=== PATIENT | male | born 1945 | race American Indian/Alaskan Native ===

== ENCOUNTER 2016-12-24 16:58 | Inpatient (IN) | payer MEDICARE, SELFPAY ==
[2016-12-24 16:59] VITALS: BMI 27.7
--- NOTE | 2016-12-24 17:35 | C.PDOC ---
Chief Complaint (Nursing): Lower Extremity Problem/Injury Past Medical History Vital Signs: Last Vital Signs Temp 98.4 F 12/24/16 17:08 Pulse 76 12/24/16 17:08 Resp 18 12/24/16 17:08 BP 155/96 H 12/24/16 17:08 Pulse Ox 98 12/24/16 17:08 - Medical History PMH: HTN - [facility] Procedures EXC LES SOFT TISSUE NEC (08/07/13) EXCIS DEBRIDE OF WOUND, INFECT, OR BURN (09/05/13) FREE SKIN GRAFT NEC (08/07/13) NONEXCIS DEBRID OF WOUND, INFECT, OR BURN (08/07/13) - Social History Hx Alcohol Use: Yes Hx Substance Use: No ED Course And Treatment O2 Sat by Pulse Oximetry: 98
--- NOTE | 2016-12-24 17:39 | C.PDOC ---
History Of Present Illness REFERRED DR LIMA FOR ADMISSION. WORSENING R FOOT ULCER X 3- MONTHS. ON UNK ABX X 1 MO BUT WO IMPROVEMENT. PS SIZE IS GETTING BIGGER. NO FEVER, DC. EXAM NAD NONTOXIC SKIN +DIABETIC ULCER R LATERAL FOOT BELOW LAT MALL. LOCAL ERYTHEMA. NO DC. REMAINDER NEG Time Seen by Provider: 12/24/16 17:23 Chief Complaint (Nursing): Lower Extremity Problem/Injury History Per: Patient History/Exam Limitations: no limitations Onset/Duration Of Symptoms: Persistent Current Symptoms Are (Timing): Worse Location Of Injury: Right: Foot Quality Of Symptoms: Painful Recent travel outside of the [place]: No Past Medical History Reviewed: Historical Data, Nursing Documentation, Vital Signs Vital Signs: Last Vital Signs Temp 98.4 F 12/24/16 17:08 Pulse 76 12/24/16 17:08 Resp 18 12/24/16 17:08 BP 155/96 H 12/24/16 17:08 Pulse Ox 98 12/24/16 17:57 - Medical History PMH: HTN - [facility] Procedures EXC LES SOFT TISSUE NEC (08/07/13) EXCIS DEBRIDE OF WOUND, INFECT, OR BURN (09/05/13) FREE SKIN GRAFT NEC (08/07/13) NONEXCIS DEBRID OF WOUND, INFECT, OR BURN (08/07/13) Family History: States: Unknown Family Hx - Social History Hx Alcohol Use: Yes Hx Substance Use: No Review Of Systems Except As Marked, All Systems Reviewed And Found Negative. Constitutional: Negative for: Fever, Chills Skin: Positive for: Other (R FOOT ULCER ). Negative for: Rash Neurological: Negative for: Weakness, Numbness Physical Exam - Physical Exam Appears: Non-toxic, No Acute Distress Skin: Warm, Dry, Other (+DIABETIC ULCER R LATERAL FOOT BELOW LAT MALL. LOCAL ERYTHEMA. NO DC.) Head: Atraumatic, Normacephalic Chest: Symmetrical Cardiovascular: Rhythm Regular, No Murmur Respiratory: Normal Breath Sounds, No Rales, No Rhonchi, No Wheezing Gastrointestinal/Abdominal: Soft, No Tenderness, No Guarding, No Rebound Extremity: Normal ROM, Other (SEE SKIN EXAM) Neurological/Psych: Oriented x3, Normal Speech, Normal Cognition ED Course And Treatment - Laboratory Results Result Diagrams: 12/24/16 17:50 12/24/16 17:50 ECG: Interpreted By Me ECG Rhythm: Sinus Rhythm ECG Interpretation: Normal Rate From EC O2 Sat by Pulse Oximetry: 98 (RA) Pulse Ox Interpretation: Normal - Radiology CXR: Interpreted by Me CXR Interpretation: Yes: No Acute Disease Progress - Re-Evaluation Re-evaluation Note: 12/24/16 17:[address] BEATRIZ KINGSLEY NOTIFIED 12/24/16 17:40 EKG, CXR, BLOODWORK, X-RAYS. 12/24/16 17:55 UNABLE TO ADMIT TO PMD DUE TO BLUE LIST STATUS. ADMISSION REFUSED BY HOSPITALIST DUE TO INSURANCE STATUS. PT ADMITTED TO [facility] [facility] [employer] DR Arcadio ALMEIDA. - Data Reviewed Data Reviewed: Lab, Diagnostic imaging, EKG, Old records - Continuity of Care Discussed patient case with:: Patient, Family-HIPPA compliant Discussed pt. case with financial analysis consultant/specialty: Podiatry Disposition Counseled Patient/Family Regarding: Studies Performed, Diagnosis, Need For Followup - Disposition Disposition: HOSPITALIZED Disposition Time: 17:39 Condition: STABLE - POA Present On Arrival: Poor Glycemic Control - Clinical Impression Clinical Impression: Diabetic ulcer of ankle, Failure of outpatient treatment - Scribe Statement The provider has reviewed the documentation as recorded by the Scribe FORD MORALES All medical record entries made by the Scribe were at my direction and personally dictated by me. I have reviewed the chart and agree that the record accurately reflects my personal performance of the history, physical exam, medical decision making, and the department course for this patient. I have also personally directed, reviewed, and agree with the discharge instructions and disposition. Decision To Admit - Pt Status Changed To: Hospital Disposition Of: Inpatient - Admit Certification Admit to Inpatient:: After my assessment, the patient will require hospitalization for at least two midnights. This is because of the severity of symptoms shown, intensity of services needed, and/or the medical risk in this patient being treated as an outpatient. - InPatient: Physician Admission Certification: I certify that this patient requires 2 or more midnights of care for the following reason:: SEE NOTE - . Bed Request Type: Regular Patient Diagnosis: Diabetic ulcer of ankle, Failure of outpatient treatment
[2016-12-24] MEDS ORDERED: Clindamycin 300 MG in Sodium Chloride 0.9% 50 ML IVPB STA (17:41)
[2016-12-24 17:53] LABS: BASO % 0.6 % (0.0-2.0); EOS # 0.2 K/uL (0.0-0.7); HEMATOCRIT 46.7 % (35.0-51.0); LYMPH # 1.9 K/uL (1.0-4.3); LYMPH % 23.2 % (20.0-40.0); MEAN CELL VOLUME 83.6 fL (80.0-94.0); MEAN CORPUSCULAR HEMOGLOBIN 26.9 pg (27.0-31.0); MEAN CORPUSCULAR HGB CONC 32.1 g/dL (33.0-37.0); MEAN PLATELET VOLUME 8.9 fL (7.2-11.7); MONO # 1.1 K/uL (0.0-0.8); MONO % 13.2 % (0.0-10.0); RED CELL DISTRIBUTION WIDTH 14.2 % (11.5-14.5); WHITE BLOOD COUNT 8.2 K/uL (4.8-10.8)
[2016-12-24 18:00] LABS: POTASSIUM 3.6 mmol/L (3.6-5.2)
[2016-12-24 18:04] LABS: CALCIUM 9.4 mg/dl (8.6-10.4)
--- NOTE | 2016-12-24 18:10 | RAD ---
HISTORY: MED CLEAR COMPARISON: No prior. TECHNIQUE: Chest PA and lateral FINDINGS: LUNGS: The lungs are well inflated and clear. There is left basilar scarring. PLEURA: No significant pleural effusion identified. No pneumothorax apparent. CARDIOVASCULAR: Normal. OSSEOUS STRUCTURES: Within normal limits for the patient's age. VISUALIZED UPPER ABDOMEN: Normal. OTHER FINDINGS: None. IMPRESSION: No acute findings.
--- NOTE | 2016-12-24 18:25 | CP.PCM.CON ---
History of Present Illness - History of Present Illness History of Present Illness: 71 y/o male with PMHx of HTN presents to the ED after being sent here from Dr. Turner's office this morning. Patient states he has had the wound on his right ankle for several weeks but that he has recently started to feel more pain in the area, specifically when he first tries to put weight down on it after sitting or sleeping. Patient admits to a history of a similar ulceration on the medial left ankle, which was previously infected and treated surgically with a washout and skin graft. Patient denies F/C/N/V/SOB. Patient has no other pedal complaints at this time. Review of Systems - Review of Systems All systems: reviewed and no additional remarkable complaints except (per HPI) Past Patient History - Past Medical History & Family History Past Medical History?: No - Past Social History Smoking Status: Never Smoked - CARDIAC Hx Hypertension: Yes - INTEGUMENTARY Hx Dermatological Problems: Yes Other/Comment: wound left heel for debridement - MUSCULOSKELETAL/RHEUMATOLOGICAL Hx Falls: No - PSYCHIATRIC Hx Substance Use: No - SURGICAL HISTORY Hx Surgeries: Yes Other/Comment: removal mole from left forearm 20 years ago - ANESTHESIA Hx Anesthesia: Yes Hx Anesthesia Reactions: No Hx Malignant Hyperthermia: No Meds Allergies/Adverse Reactions: Allergies Allergy/AdvReac Type Severity Reaction Status Date / Time No Known Allergies Allergy Verified 08/07/13 08:53 Physical Exam - Constitutional Appears: Well, Non-toxic, No Acute Distress - Extremities Exam Additional comments: Vasc: DP/PT pulses 2/4 B/L, CFT < 3sec x10 digits, temperature gradient WNL, mild perimalleolar edema noted at lateral right ankle in wound periphery Derm: 3.8cm x 2cm x 0.2cm dry ulceration noted to posterolateral aspect of right ankle with loose scabbing wound borders. Wound base contains a central eschar with fibrotic tissue peripherally. No tunneling, drainage, no malodor, no fluctuance, no probe to bone, no clinical signs of infection. Neuro: Protective sensation grossly intact B/L Ortho: No tenderness upon palpation of ulceration or ulcer periphery - Neurological Exam Neurological exam: Alert, Oriented x3 - Psychiatric Exam Psychiatric exam: Normal Affect, Normal Mood Results - Vital Signs Recent Vital Signs: Last Vital Signs Temp 98.4 F 12/24/16 17:08 Pulse 76 12/24/16 17:08 Resp 18 12/24/16 17:08 BP 155/96 H 12/24/16 17:08 Pulse Ox 98 12/24/16 17:57 - Labs Result Diagrams: 12/24/16 17:50 12/24/16 17:50 Assessment & Plan - Assessment and Plan (Free Text) Assessment: 71 y/o male seen in ED by podiatry for right foot posterolateral ankle ulceration Plan: Pt seen and evaluated in ED at bedside Discussed plan in detail with Dr. Turner Labs and vitals reviewed- afebrile, WBC 8.2 X-rays reviewed- no evidence of osteomyelitis, no acute fracture or dislocation Wound cultures taken by nursing, results pending Patient to be admitted on IV Clindamycin as per Dr. Turner Rx Santyl ointment to be applied with dressing changes Dressed right foot with bacitracin and DSD ID consult placed for Dr. Diamond Podiatry will continue to follow while in house Thank you for this consult - Date & Time Date: 12/24/16 Time: 18:35
[2016-12-24] MEDS ORDERED: Bacitracin 500 Units/gm Oint Foilpak UD TOP ONE (18:34)
--- NOTE | 2016-12-24 18:43 | RAD ---
PROCEDURE: Right Foot Radiographs. HISTORY: DIABETIC ULCER COMPARISON: None. FINDINGS: BONES: Bone alignment and mineralization are normal. There is no acute displaced fracture or bone destruction. There is a prominent dorsal calcaneal enthesophyte. JOINTS: Normal. SOFT TISSUES: Normal. OTHER FINDINGS: None. IMPRESSION: No acute fracture or dislocation.
--- NOTE | 2016-12-24 18:44 | RAD ---
PROCEDURE: Right Ankle Radiographs. HISTORY: DIABETIC ULCER COMPARISON: None FINDINGS: BONES: Bone alignment and mineralization are normal. There is no acute fracture or bone destruction. There is a prominent dorsal calcaneal enthesophyte. JOINTS: Normal. No osteoarthritis. Ankle mortise maintained. Talar dome intact SOFT TISSUES: There is mild medial periarticular soft tissue swelling. OTHER FINDINGS: None. IMPRESSION: No acute fracture or bone destruction. Mild medial periarticular soft tissue swelling.
[2016-12-24] MEDS ORDERED: Bacitracin 500 Units/gm Oint Foilpak UD ONE (18:45)
[2016-12-24] MEDS: Clindamycin 600mg/50ml D5W 600 MG/50 ML VIAL IVPB SCH (23:50)
[2016-12-25] MEDS: Piperacillin/Tazobact 3.375 GM in Sodium Chloride 100 ML IVPB SCH ×3 (03:06→19:29)
[2016-12-25] MEDS: Clindamycin 600mg/50ml D5W 600 MG/50 ML VIAL IVPB SCH ×2 (08:01→16:22)
[2016-12-25] MEDS ORDERED: Enoxaparin 40 mg Syringe SC SCH (10:00)
[2016-12-25] MEDS: Pantoprazole 40 mg EC Tab PO SCH (10:12)
[2016-12-25] MEDS: Enoxaparin 40 mg Syringe SC SCH (10:12)
[2016-12-25] MEDS: Bisoprolol-HCTZ 10-6.25 mg Tab PO SCH (10:12)
[2016-12-25] MEDS: Collagenase 250 Units/gm Ointment(30 gm) TOP SCH (12:14)
--- NOTE | 2016-12-25 12:25 | CP.PCM.HP ---
History of Present Illness - History of Present Illness History of Present Illness: ulcer infected heele Present on Admission - Present on Admission Any Indicators Present on Admission: No Review of Systems - Review of Systems Systems not reviewed;Unavailable: Acuity of Condition - Constitutional Constitutional: Fatigue - EENT Eyes: As Per HPI - Cardiovascular Cardiovascular: As Per HPI, Leg Ulcers - Respiratory Respiratory: Dyspnea on Exertion - Gastrointestinal Gastrointestinal: As Per HPI - Genitourinary Genitourinary: As Per HPI - Reproductive: Male Reproductive:Male: As Per HPI - Musculoskeletal Musculoskeletal: As Per HPI - Neurological Neurological: As Per HPI - Psychiatric Psychiatric: As Per HPI - Endocrine Endocrine: As Per HPI - Hematologic/Lymphatic Hematologic: As Per HPI Past Patient History - Past Medical History & Family History Past Medical History?: No - Past Social History Smoking Status: Never Smoked - CARDIAC Hx Hypertension: Yes - INTEGUMENTARY Hx Dermatological Problems: Yes Other/Comment: wound left heel for debridement - MUSCULOSKELETAL/RHEUMATOLOGICAL Hx Falls: No - PSYCHIATRIC Hx Substance Use: No - SURGICAL HISTORY Hx Surgeries: Yes Other/Comment: removal mole from left forearm 20 years ago - ANESTHESIA Hx Anesthesia: Yes Hx Anesthesia Reactions: No Hx Malignant Hyperthermia: No Meds Allergies/Adverse Reactions: Allergies Allergy/AdvReac Type Severity Reaction Status Date / Time No Known Allergies Allergy Verified 08/07/13 08:53 Physical Exam - Constitutional Appears: Non-toxic, In Acute Distress - Head Exam Head Exam: ATRAUMATIC - Eye Exam Eye Exam: Normal appearance Pupil Exam: NORMAL ACCOMODATION - ENT Exam ENT Exam: Mucous Membranes Moist - Neck Exam Neck exam: Positive for: Normal Inspection - Respiratory Exam Respiratory Exam: Clear to Auscultation Bilateral - Cardiovascular Exam Cardiovascular Exam: REGULAR RHYTHM - GI/Abdominal Exam GI & Abdominal Exam: Normal Bowel Sounds - Rectal Exam Rectal Exam: NORMAL INSPECTION - Exam Exam: NORMAL INSPECTION - Extremities Exam Extremities exam: Positive for: normal inspection Additional comments: ulcer infected heel - Back Exam Back exam: NORMAL INSPECTION - Neurological Exam Neurological exam: Normal Gait Results - Vital Signs Recent Vital Signs: Last Vital Signs Temp 98.8 F 12/25/16 08:20 Pulse 70 12/25/16 08:20 Resp 20 12/25/16 08:20 BP 161/92 H 12/25/16 08:20 Pulse Ox 97 12/25/16 08:20 - Labs Result Diagrams: 12/24/16 17:50 12/24/16 17:50 Assessment & Plan - Assessment and Plan (Free Text) Assessment: infected heel ulcer htn Plan: dr ponce consult and as per order - Date & Time Date: 12/25/16 Time: 12:27
--- NOTE | 2016-12-25 13:11 | CP.PCM.PN ---
Subjective - Date & Time of Evaluation Date of Evaluation: 12/25/16 Time of Evaluation: 11:20 - Subjective Subjective: 71 y/o diabetic male patient seen at bedside this morning regarding f.u of right ankle ulceration. Pt seen resting comfortably in bed at time of visit. AAOx3, NAD. Does complain of some mild pain to the ankle today. Denies f/n/v/c/ sob/cp. Denies any other complaints at this time. Objective - Vital Signs/Intake and Output Vital Signs (last 24 hours): Temp Pulse Resp BP Pulse Ox 98.8 F 70 20 161/92 H 97 12/25/16 08:20 12/25/16 08:20 12/25/16 08:20 12/25/16 08:20 12/25/16 08:20 Intake and Output: 12/25/16 12/25/16 06:59 18:59 Intake Total 440 Output Total 400 Balance 40 - Medications Medications: Current Medications Amlodipine Besylate (Norvasc) 10 mg PO DAILY [facility] Last Admin: 12/25/16 10:12 Dose: 10 mg Bisoprolol Fumarate/HCTZ (Ziac 10-6.25 Mg) 1 tab PO DAILY [facility] Last Admin: 12/25/16 10:12 Dose: 1 tab Collagenase (Santyl) 0 gm TOP DAILY [facility] Last Admin: 12/25/16 12:14 Dose: 1 applic Enoxaparin Sodium (Lovenox) 40 mg SC DAILY [facility] Last Admin: 12/25/16 10:12 Dose: 40 mg Hydralazine HCl (Apresoline) 50 mg PO DAILY [facility] Last Admin: 12/25/16 10:12 Dose: 50 mg Clindamycin Phosphate (Cleocin) 600 mg in 50 mls @ 102 mls/hr IVPB Q8H [facility] Last Admin: 12/25/16 08:01 Dose: 102 mls/hr Piperacillin Sod/Tazobactam (Sod 3.375 gm/ Sodium Chloride) 100 mls @ 200 mls/ hr IVPB Q8H [facility] Last Admin: 12/25/16 10:36 Dose: 200 mls/hr Losartan Potassium (Cozaar) 100 mg PO DAILY [facility] Last Admin: 12/25/16 10:14 Dose: 100 mg Pantoprazole Sodium (Protonix Ec Tab) 40 mg PO DAILY [facility] Last Admin: 12/25/16 10:12 Dose: 40 mg - Constitutional Appears: Non-toxic, No Acute Distress - Extremities Exam Extremities Exam: absent: Calf Tenderness Additional comments: Right low ext exam: Dressing appears c/d/i to the right foot Vasc: DP/PT pulses 2/4 B/L, CFT < 3sec x10 digits, skin temp WNL, mild perimalleolar edema noted at lateral right ankle in wound periphery Derm: 3.8cm x 2cm x 0.2cm dry ulceration noted to posterolateral aspect of right ankle with loose scabbing wound borders. Wound base contains a central eschar with fibrotic tissue peripherally. No tunneling, drainage, no malodor, no fluctuance, no probe to bone, no clinical signs of infection. Neuro: Protective sensation grossly intact B/L Ortho: No tenderness upon palpation of ulceration or ulcer periphery - Neurological Exam Neurological Exam: Alert, Awake, Oriented x3 - Psychiatric Exam Psychiatric exam: Normal Affect, Normal Mood Assessment and Plan - Assessment and Plan (Free Text) Assessment: 71 y/o diabetic male w/ right posterolateral ankle ulceration 2/2 diabetic neuropathy Plan: Pt S&E at bedside Plan discussed with attending Dr. Turner in detail Chart, labs and vitals reviewed: afebrile, WBC 8.2 X-rays reviewed- no evidence of osteomyelitis, no acute fracture or dislocation Wound cx: (prelim) gram + cocci in clusters c/w IV abx, Dr. Diamond on consult, recommendations appreciated Right foot cleansed and dressed with santyl and DSD Podiatry will continue to follow while in house
--- NOTE | 2016-12-25 14:36 | CP.PCM.CON ---
History of Present Illness - History of Present Illness History of Present Illness: 71 years old male patient with past medical history of hypertension referred from Dr Turner's clinic to emergency department when found worsening ulcer over the right foot since last 3 months. Patient states that the wound is recently started to become more painful specifically when he puts weight down on it after sitting. History of similar ulcer over the left ankle which was treated surgically with a washout and skin graft. No fever, nausea, vomiting. No chest pain, shortness of breath, lightheadedness, palpitation. No pedal edema bilaterally. No history of recent trauma. Past Patient History - Past Medical History & Family History Past Medical History?: No - Past Social History Smoking Status: Never Smoked - CARDIAC Hx Hypertension: Yes - INTEGUMENTARY Hx Dermatological Problems: Yes Other/Comment: wound left heel for debridement - MUSCULOSKELETAL/RHEUMATOLOGICAL Hx Falls: No - PSYCHIATRIC Hx Substance Use: No - SURGICAL HISTORY Hx Surgeries: Yes Other/Comment: removal mole from left forearm 20 years ago - ANESTHESIA Hx Anesthesia: Yes Hx Anesthesia Reactions: No Hx Malignant Hyperthermia: No Meds Home Medications: Home Medication List Medication Instructions Recorded Confirmed Type Acetaminophen [Tylenol 325mg tab] 650 mg PO Q6 PRN tab 01/04/17 Rx Allergies/Adverse Reactions: Allergies Allergy/AdvReac Type Severity Reaction Status Date / Time No Known Allergies Allergy Verified 01/04/17 17:27 - Medications Medications: Current Medications Amlodipine Besylate (Norvasc) 10 mg PO DAILY [facility] Last Admin: 12/25/16 10:12 Dose: 10 mg Bisoprolol Fumarate/HCTZ (Ziac 10-6.25 Mg) 1 tab PO DAILY [facility] Last Admin: 12/25/16 10:12 Dose: 1 tab Collagenase (Santyl) 0 gm TOP DAILY [facility] Last Admin: 12/25/16 12:14 Dose: 1 applic Enoxaparin Sodium (Lovenox) 40 mg SC DAILY [facility] Last Admin: 12/25/16 10:12 Dose: 40 mg Hydralazine HCl (Apresoline) 50 mg PO DAILY [facility] Last Admin: 12/25/16 10:12 Dose: 50 mg Clindamycin Phosphate (Cleocin) 600 mg in 50 mls @ 102 mls/hr IVPB Q8H [facility] Last Admin: 12/25/16 08:01 Dose: 102 mls/hr Piperacillin Sod/Tazobactam (Sod 3.375 gm/ Sodium Chloride) 100 mls @ 200 mls/ hr IVPB Q8H [facility] Last Admin: 12/25/16 10:36 Dose: 200 mls/hr Losartan Potassium (Cozaar) 100 mg PO DAILY [facility] Last Admin: 12/25/16 10:14 Dose: 100 mg Pantoprazole Sodium (Protonix Ec Tab) 40 mg PO DAILY [facility] Last Admin: 12/25/16 10:12 Dose: 40 mg Physical Exam - Constitutional Appears: Well - Head Exam Head Exam: ATRAUMATIC, NORMAL INSPECTION, NORMOCEPHALIC - Eye Exam Eye Exam: EOMI, Normal appearance, PERRL Pupil Exam: NORMAL ACCOMODATION, PERRL - ENT Exam ENT Exam: Mucous Membranes Moist, Normal Exam - Neck Exam Neck exam: Positive for: Normal Inspection - Respiratory Exam Respiratory Exam: Decreased Breath Sounds - Cardiovascular Exam Cardiovascular Exam: REGULAR RHYTHM, +S1, +S2 - GI/Abdominal Exam GI & Abdominal Exam: Diminished Bowel Sounds, Soft - Rectal Exam Rectal Exam: Deferred Results - Vital Signs Recent Vital Signs: Last Vital Signs Temp 98.8 F 12/25/16 08:20 Pulse 70 12/25/16 08:20 Resp 20 12/25/16 08:20 BP 161/92 H 12/25/16 08:20 Pulse Ox 97 12/25/16 08:20 - Labs Result Diagrams: 12/31/16 07:16 12/31/16 07:16 Assessment & Plan (1) Diabetic ulcer of ankle Status: Acute (2) Failure of outpatient treatment Status: Acute (3) HTN (hypertension) Status: Acute (4) Non-healing ulcer of ankle Status: Chronic - Assessment and Plan (Free Text) Plan: Patient seen and evaluated Labs and meds noted Wound culture awaited IV antibiotics Wound care ID consult Podiatry Labs next a.m.
[2016-12-26] MEDS: Clindamycin 600mg/50ml D5W 600 MG/50 ML VIAL IVPB SCH ×2 (00:15→07:04)
[2016-12-26] MEDS: Piperacillin/Tazobact 3.375 GM in Sodium Chloride 100 ML IVPB SCH ×3 (03:15→18:37)
[2016-12-26] MEDS: Bisoprolol-HCTZ 10-6.25 mg Tab PO SCH (09:37)
[2016-12-26] MEDS: Enoxaparin 40 mg Syringe SC SCH (09:37)
[2016-12-26] MEDS: Pantoprazole 40 mg EC Tab PO SCH (09:41)
--- NOTE | 2016-12-26 11:30 | CP.PCM.PN ---
Subjective - Date & Time of Evaluation Date of Evaluation: 12/26/16 Time of Evaluation: 11:27 - Subjective Subjective: pt seen in bed still has infected painful ulcer heele bp slightly beter Objective - Vital Signs/Intake and Output Vital Signs (last 24 hours): Temp Pulse Resp BP Pulse Ox 99.2 F 75 20 158/95 H 97 12/26/16 08:44 12/26/16 08:44 12/26/16 08:44 12/26/16 08:44 12/26/16 08:44 Intake and Output: 12/26/16 12/26/16 06:59 18:59 Intake Total 1120 Output Total 350 Balance 770 - Medications Medications: Current Medications Amlodipine Besylate (Norvasc) 10 mg PO DAILY [facility] Last Admin: 12/26/16 09:40 Dose: 10 mg Bisoprolol Fumarate/HCTZ (Ziac 10-6.25 Mg) 1 tab PO DAILY [facility] Last Admin: 12/26/16 09:37 Dose: 1 tab Collagenase (Santyl) 0 gm TOP DAILY [facility] Last Admin: 12/25/16 12:14 Dose: 1 applic Enoxaparin Sodium (Lovenox) 40 mg SC DAILY [facility] Last Admin: 12/26/16 09:37 Dose: 40 mg Hydralazine HCl (Apresoline) 50 mg PO DAILY [facility] Last Admin: 12/26/16 09:40 Dose: 50 mg Clindamycin Phosphate (Cleocin) 600 mg in 50 mls @ 102 mls/hr IVPB Q8H [facility] Last Admin: 12/26/16 07:04 Dose: 102 mls/hr Piperacillin Sod/Tazobactam (Sod 3.375 gm/ Sodium Chloride) 100 mls @ 200 mls/ hr IVPB Q8H [facility] Last Admin: 12/26/16 11:20 Dose: 200 mls/hr Losartan Potassium (Cozaar) 100 mg PO DAILY [facility] Last Admin: 12/26/16 09:39 Dose: 100 mg Pantoprazole Sodium (Protonix Ec Tab) 40 mg PO DAILY [facility] Last Admin: 12/26/16 09:41 Dose: 40 mg - Constitutional Appears: Non-toxic - Head Exam Head Exam: NORMAL INSPECTION - Eye Exam Eye Exam: Normal appearance Pupil Exam: NORMAL ACCOMODATION - ENT Exam ENT Exam: Mucous Membranes Moist - Neck Exam Neck Exam: Full ROM - Respiratory Exam Respiratory Exam: Clear to Ausculation Bilateral - Cardiovascular Exam Cardiovascular Exam: REGULAR RHYTHM - GI/Abdominal Exam GI & Abdominal Exam: Normal Bowel Sounds - Rectal Exam Rectal Exam: NORMAL INSPECTION - Exam External exam: NORMAL EXTERNAL EXAM - Back Exam Back Exam: NORMAL INSPECTION - Neurological Exam Neurological Exam: Normal Gait Additional comments: use walker to ambulate - Psychiatric Exam Psychiatric exam: Normal Affect - Skin Skin Exam: Normal Color Assessment and Plan - Assessment and Plan (Free Text) Assessment: infected ulcer heele htn cont wound care medication and as per dr mcneil plan
[2016-12-26] MEDS: Collagenase 250 Units/gm Ointment(30 gm) TOP SCH (11:47)
--- NOTE | 2016-12-26 12:52 | CP.PCM.PN ---
Subjective - Date & Time of Evaluation Date of Evaluation: 12/26/16 Time of Evaluation: 12:00 - Subjective Subjective: 71 y/o diabetic male patient seen at bedside this morning regarding f.u of right ankle ulceration. Pt seen resting comfortably in bed at time of visit. AAOx3, NAD. Does complain of some mild pain to the ankle today however says much improved. Denies f/n/v/c/sob/cp. Denies any other complaints at this time. Objective - Vital Signs/Intake and Output Vital Signs (last 24 hours): Temp Pulse Resp BP Pulse Ox 99.2 F 68 20 158/95 H 97 12/26/16 08:44 12/26/16 12:26 12/26/16 08:44 12/26/16 08:44 12/26/16 12:26 Intake and Output: 12/26/16 12/26/16 06:59 18:59 Intake Total 1120 Output Total 350 Balance 770 - Medications Medications: Current Medications Amlodipine Besylate (Norvasc) 10 mg PO DAILY [facility] Last Admin: 12/26/16 09:40 Dose: 10 mg Bisoprolol Fumarate/HCTZ (Ziac 10-6.25 Mg) 1 tab PO DAILY [facility] Last Admin: 12/26/16 09:37 Dose: 1 tab Collagenase (Santyl) 0 gm TOP DAILY [facility] Last Admin: 12/26/16 11:47 Dose: Not Given Enoxaparin Sodium (Lovenox) 40 mg SC DAILY [facility] Last Admin: 12/26/16 09:37 Dose: 40 mg Hydralazine HCl (Apresoline) 50 mg PO DAILY [facility] Last Admin: 12/26/16 09:40 Dose: 50 mg Clindamycin Phosphate (Cleocin) 600 mg in 50 mls @ 102 mls/hr IVPB Q8H [facility] Last Admin: 12/26/16 07:04 Dose: 102 mls/hr Piperacillin Sod/Tazobactam (Sod 3.375 gm/ Sodium Chloride) 100 mls @ 200 mls/ hr IVPB Q8H [facility] Last Admin: 12/26/16 11:20 Dose: 200 mls/hr Losartan Potassium (Cozaar) 100 mg PO DAILY [facility] Last Admin: 12/26/16 09:39 Dose: 100 mg Pantoprazole Sodium (Protonix Ec Tab) 40 mg PO DAILY [facility] Last Admin: 12/26/16 09:41 Dose: 40 mg - Constitutional Appears: Non-toxic, No Acute Distress - Extremities Exam Additional comments: Right low ext exam: Dressing appears c/d/i to the right foot Vasc: DP/PT pulses 2/4 B/L, CFT < 3sec x10 digits, skin temp WNL, mild perimalleolar edema noted at lateral right ankle in wound periphery Derm: 3.8cm x 2cm x 0.2cm dry ulceration noted to posterolateral aspect of right ankle with loose scabbing wound borders. Wound base contains a central eschar with fibrotic tissue peripherally. No tunneling, drainage, no malodor, no fluctuance, no probe to bone, no clinical signs of infection. Neuro: Protective sensation grossly intact B/L Ortho: No tenderness upon palpation of ulceration or ulcer periphery - Neurological Exam Neurological Exam: Alert, Awake, Oriented x3 - Psychiatric Exam Psychiatric exam: Normal Affect, Normal Mood Assessment and Plan - Assessment and Plan (Free Text) Assessment: 71 y/o diabetic male w/ right posterolateral ankle ulceration 2/2 diabetic neuropathy Plan: Pt S&E at bedside Plan discussed with attending Dr. Turner in detail Chart, labs and vitals reviewed: afebrile, WBC 8.2 X-rays reviewed- no evidence of osteomyelitis, no acute fracture or dislocation Wound cx: (final) staph aureus c/w IV abx, Dr. Diamond on consult, recommendations appreciated Right foot cleansed and dressed with santyl and DSD Stable per podiatry service Podiatry will continue to follow while in house
--- NOTE | 2016-12-26 15:36 | CP.PCM.CON ---
History of Present Illness - History of Present Illness History of Present Illness: 71 y/o male with PMHx of HTN presents to the ED after being sent here from Dr. Turner's office . Patient states he has had the wound on his right ankle for several weeks but that he has recently started to feel more pain in the area, specifically when he first tries to put weight down on it after sitting or sleeping. Patient admits to a history of a similar ulceration on the medial left ankle, which was previously infected and treated surgically with a washout and skin graft. Patient denies F/C/N/V/SOB. Patient has no other pedal complaints at this time. Denies DM, PVD non smoker Review of Systems - Review of Systems All systems: reviewed and no additional remarkable complaints except - Constitutional Constitutional: As Per HPI - EENT Eyes: absent: As Per HPI, Blind Spots, Blurred Vision, Change in Vision, Decreased Night Vision, Diplopia, Discharge, Dry Eye, Exophthalmos, Floaters, Irritation, Itchy Eyes, Loss of Peripheral Vision, Pain, Photophobia, Requires Corrective Lenses, Sees Flashes, Spots in Vision, Tunnel Vision, Other Visual Disturbances, Loss of Vision, Other Ears: absent: As Per HPI, Decreased Hearing, Ear Discharge, Ear Pain, Tinnitus, Abnormal Hearing, Disequilibrium, Dizziness, Other Nose/Mouth/Throat: absent: As Per HPI, Epistaxis, Nasal Congestion, Nasal Discharge, Nasal Obstruction, Nasal Trauma, Nose Pain, Post Nasal Drip, Sinus Pain, Sinus Pressure, Bleeding Gums, Change in Voice, Dental Pain, Dry Mouth, Dysphagia, Halitosis, Hoarsness, Lip Swelling, Mouth Lesions, Mouth Pain, Odynophagia, Sore Throat, Throat Swelling, Tongue Swelling, Facial Pain, Neck Pain, Neck Mass, Other - Cardiovascular Cardiovascular: absent: As Per HPI, Acrocyanosis, Chest Pain, Chest Pain at Rest , Chest Pain with Activity, Claudication, Diaphoresis, Dyspnea, Dyspnea on Exertion, Edema, Irregular Heart Rhythm, Pain Radiating to Arm/Neck/Jaw, Leg Edema, Leg Ulcers, Lightheadedness, Orthopnea, Palpitations, Paroxysmal Nocturnal Dyspnea, Pedal Edema, Radiating Pain, Rapid Heart Rate, Slow Heart Rate, Syncope, Other - Respiratory Respiratory: absent: As Per HPI, Cough, Dyspnea, Hemoptysis, Dyspnea on Exertion , Wheezing, Snoring, Stridor, Pain on Inspiration, Chest Congestion, Excessive Mucous Production, Change in Mucous Color, Pain with Coughing, Other - Gastrointestinal Gastrointestinal: absent: As Per HPI, Abdominal Pain, Belching, Bloating, Change in Bowel Habits, Change in Stool Character, Coffee Ground Emesis, Constipation, Cramping, Diarrhea, Dyspepsia, Dysphagia, Early Satiety, Excessive Flatus, Fecal Incontinence, Heartburn, Hematemesis, Hematochezia, Loose Stools, Melena, Nausea, Odynophagia, Temesmus, Vomiting, Other - Genitourinary Genitourinary: absent: As Per HPI, Change in Urinary Stream, Difficulty Urinating, Dysuria, Flank Pain, Hematuria, Pyuria, Nocturia, Urinary Incontinence, Urinary Frequency, Urinary Hesitance, Urinary Urgency, Voiding Freq/Small Amts, Freq UTI, Hx Renal/Bladder Calculi, Hx /Renal Surgery, Bladder Distension, Other - Musculoskeletal Musculoskeletal: As Per HPI - Integumentary Integumentary: As Per HPI, Skin Pain, Wounds - Neurological Neurological: absent: As Per HPI, Abnormal Gait, Abnormal Hearing, Abnormal Movements, Abnormal Speech, Behavioral Changes, Burning Sensations, Confusion, Convulsions, Disequilibrium, Dizziness, Numbness, Focal Weakness, Frequent Falls , Headaches, Lack of Coordination, Loss of Vision, Memory Loss, Paresthesias, Radicular Pain, Restless Legs, Sensory Deficit, Syncope, Tingling, Tremor, Vertigo, Weakness, Other Visual Disturbances, Other - Psychiatric Psychiatric: absent: As Per HPI, Abnormal Sleep Pattern, Anhedonia, Anxiety, Auditory Hallucinations, Behavioral Changes, Change in Appetite, Change in Libido, Confusion, Depression, Difficulty Concentrating, Hallucinations, Homicidal Ideation, Hopelessness, Irritability, Memory Loss, Mood Swings, Panic Attacks, Paranoia, Suicidal Ideation, Visual Hallucinations, Tactile Hallucinations, Other - Endocrine Endocrine: absent: As Per HPI, Change in Body Appearance, Change in Libido, Cold Intolorance, Deepening of Voice, Excessive Sweating, Fatigue, Flushing, Heat Intolorance, Increase in Ring/Shoe/Hat Size, Palpitations, Polydipsia, Polyphagia, Polyuria, Other - Hematologic/Lymphatic Hematologic: absent: As Per HPI, Easy Bleeding, Easy Bruising, Lymphadenopathy, Other Past Patient History - Past Medical History & Family History Past Medical History?: No - Past Social History Smoking Status: Never Smoked - CARDIAC Hx Hypertension: Yes - INTEGUMENTARY Hx Dermatological Problems: Yes Other/Comment: wound left heel for debridement - MUSCULOSKELETAL/RHEUMATOLOGICAL Hx Falls: No - PSYCHIATRIC Hx Substance Use: No - SURGICAL HISTORY Hx Surgeries: Yes Other/Comment: removal mole from left forearm 20 years ago - ANESTHESIA Hx Anesthesia: Yes Hx Anesthesia Reactions: No Hx Malignant Hyperthermia: No Meds Allergies/Adverse Reactions: Allergies Allergy/AdvReac Type Severity Reaction Status Date / Time No Known Allergies Allergy Verified 08/07/13 08:53 - Medications Medications: Current Medications Amlodipine Besylate (Norvasc) 10 mg PO DAILY [facility] Last Admin: 12/26/16 09:40 Dose: 10 mg Bisoprolol Fumarate/HCTZ (Ziac 10-6.25 Mg) 1 tab PO DAILY [facility] Last Admin: 12/26/16 09:37 Dose: 1 tab Collagenase (Santyl) 0 gm TOP DAILY [facility] Last Admin: 12/26/16 11:47 Dose: Not Given Enoxaparin Sodium (Lovenox) 40 mg SC DAILY [facility] Last Admin: 12/26/16 09:37 Dose: 40 mg Hydralazine HCl (Apresoline) 50 mg PO DAILY [facility] Last Admin: 12/26/16 09:40 Dose: 50 mg Clindamycin Phosphate (Cleocin) 600 mg in 50 mls @ 102 mls/hr IVPB Q8H [facility] Last Admin: 12/26/16 07:04 Dose: 102 mls/hr Piperacillin Sod/Tazobactam (Sod 3.375 gm/ Sodium Chloride) 100 mls @ 200 mls/ hr IVPB Q8H [facility] Last Admin: 12/26/16 11:20 Dose: 200 mls/hr Losartan Potassium (Cozaar) 100 mg PO DAILY [facility] Last Admin: 12/26/16 09:39 Dose: 100 mg Pantoprazole Sodium (Protonix Ec Tab) 40 mg PO DAILY [facility] Last Admin: 12/26/16 09:41 Dose: 40 mg Physical Exam - Constitutional Appears: Non-toxic, Chronically Ill - Head Exam Head Exam: ATRAUMATIC, NORMAL INSPECTION, NORMOCEPHALIC - Eye Exam Eye Exam: EOMI, PERRL. absent: Scleral icterus - ENT Exam ENT Exam: Mucous Membranes Dry, Normal External Ear Exam, Normal Oropharynx - Neck Exam Neck exam: Negative for: Lymphadenopathy - Respiratory Exam Respiratory Exam: Decreased Breath Sounds, Clear to Auscultation Bilateral - Cardiovascular Exam Cardiovascular Exam: REGULAR RHYTHM, +S1, +S2 - GI/Abdominal Exam GI & Abdominal Exam: Diminished Bowel Sounds, Soft. absent: Tenderness - Rectal Exam Rectal Exam: Deferred - Exam Exam: NORMAL INSPECTION - Extremities Exam Extremities exam: Positive for: pedal pulses present. Negative for: calf tenderness, pedal edema, tenderness - Back Exam Back exam: absent: CVA tenderness (L), CVA tenderness (R) - Neurological Exam Neurological exam: Alert, CN II-XII Intact, Oriented x3, Reflexes Normal - Psychiatric Exam Psychiatric exam: Normal Mood - Skin Skin Exam: Dry Additional comments: large ulcer lateral aspect right ankle with some necrotic debris bit no exposed tendons or bones sensation in tact pulses + - Additional Findings Additional findings: Vasc: DP/PT pulses 2/4 B/L, CFT < 3sec x10 digits, temperature gradient WNL, mild perimalleolar edema noted at lateral right ankle in wound periphery Derm: 3.8cm x 2cm x 0.2cm dry ulceration noted to posterolateral aspect of right ankle with loose scabbing wound borders. Wound base contains a central eschar with fibrotic tissue peripherally. No tunneling, drainage, no malodor, no fluctuance, no probe to bone, no clinical signs of infection. Neuro: Protective sensation grossly intact B/L Ortho: No tenderness upon palpation of ulceration or ulcer periphery Results - Vital Signs Recent Vital Signs: Last Vital Signs Temp 99.2 F 12/26/16 08:44 Pulse 68 12/26/16 12:26 Resp 20 12/26/16 08:44 BP 158/95 H 12/26/16 08:44 Pulse Ox 97 12/26/16 12:26 - Labs Result Diagrams: 12/24/16 17:50 12/24/16 17:50 Assessment & Plan (1) Failure of outpatient treatment Status: Acute - Assessment and Plan (Free Text) Assessment: will likely need debridement and iv antibiotics consider vascular consult with formal arterial dopplers considering recurrent infections in the posterior circulation distribution of thre ankle/foot
--- NOTE | 2016-12-26 21:33 | CP.PCM.PN ---
Subjective - Date & Time of Evaluation Date of Evaluation: 12/26/16 Time of Evaluation: 08:10 - Subjective Subjective: Clinically same Objective - Vital Signs/Intake and Output Vital Signs (last 24 hours): Temp Pulse Resp BP Pulse Ox 98.6 F 62 20 163/93 H 97 12/26/16 15:00 12/26/16 15:00 12/26/16 15:00 12/26/16 15:00 12/26/16 15:00 - Medications Medications: Current Medications Amlodipine Besylate (Norvasc) 10 mg PO DAILY [facility] Last Admin: 12/26/16 09:40 Dose: 10 mg Bisoprolol Fumarate/HCTZ (Ziac 10-6.25 Mg) 1 tab PO DAILY [facility] Last Admin: 12/26/16 09:37 Dose: 1 tab Collagenase (Santyl) 0 gm TOP DAILY [facility] Last Admin: 12/26/16 11:47 Dose: Not Given Enoxaparin Sodium (Lovenox) 40 mg SC DAILY [facility] Last Admin: 12/26/16 09:37 Dose: 40 mg Hydralazine HCl (Apresoline) 50 mg PO DAILY [facility] Last Admin: 12/26/16 09:40 Dose: 50 mg Piperacillin Sod/Tazobactam (Sod 3.375 gm/ Sodium Chloride) 100 mls @ 200 mls/ hr IVPB Q8H [facility] Last Admin: 12/26/16 18:37 Dose: 200 mls/hr Losartan Potassium (Cozaar) 100 mg PO DAILY [facility] Last Admin: 12/26/16 09:39 Dose: 100 mg Pantoprazole Sodium (Protonix Ec Tab) 40 mg PO DAILY [facility] Last Admin: 12/26/16 09:41 Dose: 40 mg - Constitutional Appears: Well - Head Exam Head Exam: ATRAUMATIC, NORMAL INSPECTION, NORMOCEPHALIC - Eye Exam Eye Exam: EOMI, Normal appearance, PERRL - ENT Exam ENT Exam: Mucous Membranes Moist, Normal Exam - Neck Exam Neck Exam: Full ROM, Normal Inspection. absent: Lymphadenopathy - Respiratory Exam Respiratory Exam: Decreased Breath Sounds - Cardiovascular Exam Cardiovascular Exam: REGULAR RHYTHM, +S1, +S2. absent: Murmur - GI/Abdominal Exam GI & Abdominal Exam: Diminished Bowel Sounds - Rectal Exam Rectal Exam: Deferred Assessment and Plan (1) Diabetic ulcer of ankle Status: Acute (2) Failure of outpatient treatment Status: Acute (3) HTN (hypertension) Status: Acute (4) Non-healing ulcer of ankle Status: Chronic - Assessment and Plan (Free Text) Plan: Patient hemodynamically stable Still have pain over the ulcer area Continue antibiotics DVT prophylaxis Norvasc Cozaar Protonix Wound care ID on board Brass Pickler on board Labs next a.m.
[2016-12-27] MEDS: Piperacillin/Tazobact 3.375 GM in Sodium Chloride 100 ML IVPB SCH ×3 (02:36→18:40)
[2016-12-27 06:54] LABS: BASO % 0.3 % (0.0-2.0); EOS # 0.2 K/uL (0.0-0.7); EOS % 2.1 % (0.0-4.0); HEMATOCRIT 43.7 % (35.0-51.0); LYMPH # 1.4 K/uL (1.0-4.3); LYMPH % 19.7 % (20.0-40.0); MEAN CELL VOLUME 84.6 fL (80.0-94.0); MEAN CORPUSCULAR HEMOGLOBIN 27.5 pg (27.0-31.0); MEAN CORPUSCULAR HGB CONC 32.5 g/dL (33.0-37.0); MEAN PLATELET VOLUME 8.8 fL (7.2-11.7); MONO # 1.2 K/uL (0.0-0.8); MONO % 16.4 % (0.0-10.0); RED CELL DISTRIBUTION WIDTH 14.1 % (11.5-14.5); WHITE BLOOD COUNT 7.1 K/uL (4.8-10.8)
[2016-12-27 07:04] LABS: BILIRUBIN,TOTAL 0.8 mg/dL (0.2-1.3); CALCIUM 8.7 mg/dl (8.6-10.4); POTASSIUM 3.7 mmol/L (3.6-5.2); TOTAL PROTEIN 7.5 g/dL (6.3-8.3)
[2016-12-27] MEDS: Bisoprolol-HCTZ 10-6.25 mg Tab PO SCH (09:14)
[2016-12-27] MEDS: Enoxaparin 40 mg Syringe SC SCH (09:14)
[2016-12-27] MEDS: Pantoprazole 40 mg EC Tab PO SCH (09:14)
[2016-12-27] MEDS: Collagenase 250 Units/gm Ointment(30 gm) TOP SCH (09:15)
--- NOTE | 2016-12-27 11:12 | CP.PCM.PN ---
Subjective - Date & Time of Evaluation Date of Evaluation: 12/27/16 Time of Evaluation: 09:00 - Subjective Subjective: clinically same Objective - Vital Signs/Intake and Output Vital Signs (last 24 hours): Temp Pulse Resp BP Pulse Ox 98.1 F 77 20 159/103 H 96 12/27/16 08:41 12/27/16 08:41 12/27/16 08:41 12/27/16 08:41 12/27/16 08:41 Intake and Output: 12/27/16 12/27/16 06:59 18:59 Intake Total 350 340 Output Total 600 Balance -250 340 - Medications Medications: Current Medications Amlodipine Besylate (Norvasc) 10 mg PO DAILY [facility] Last Admin: 12/27/16 09:13 Dose: 10 mg Bisoprolol Fumarate/HCTZ (Ziac 10-6.25 Mg) 1 tab PO DAILY [facility] Last Admin: 12/27/16 09:14 Dose: 1 tab Collagenase (Santyl) 0 gm TOP DAILY [facility] Last Admin: 12/27/16 09:15 Dose: 1 applic Enoxaparin Sodium (Lovenox) 40 mg SC DAILY [facility] Last Admin: 12/27/16 09:14 Dose: 40 mg Hydralazine HCl (Apresoline) 50 mg PO DAILY [facility] Last Admin: 12/27/16 09:14 Dose: 50 mg Piperacillin Sod/Tazobactam (Sod 3.375 gm/ Sodium Chloride) 100 mls @ 200 mls/ hr IVPB Q8H [facility] Last Admin: 12/27/16 02:36 Dose: 200 mls/hr Losartan Potassium (Cozaar) 100 mg PO DAILY [facility] Last Admin: 12/27/16 09:14 Dose: 100 mg Pantoprazole Sodium (Protonix Ec Tab) 40 mg PO DAILY [facility] Last Admin: 12/27/16 09:14 Dose: 40 mg - Labs Labs: 12/27/16 06:37 12/27/16 06:37 - Constitutional Appears: Well - Head Exam Head Exam: ATRAUMATIC, NORMAL INSPECTION, NORMOCEPHALIC - Eye Exam Eye Exam: EOMI, Normal appearance, PERRL Pupil Exam: NORMAL ACCOMODATION, PERRL - ENT Exam ENT Exam: Mucous Membranes Moist, Normal Exam - Neck Exam Neck Exam: Full ROM, Normal Inspection. absent: Lymphadenopathy - Respiratory Exam Respiratory Exam: Decreased Breath Sounds - Cardiovascular Exam Cardiovascular Exam: REGULAR RHYTHM, +S1, +S2 - GI/Abdominal Exam GI & Abdominal Exam: Soft, Diminished Bowel Sounds - Rectal Exam Rectal Exam: Deferred Assessment and Plan (1) Diabetic ulcer of ankle Status: Acute (2) Failure of outpatient treatment Status: Acute (3) HTN (hypertension) Status: Acute (4) Non-healing ulcer of ankle Status: Chronic - Assessment and Plan (Free Text) Plan: Patient resting comfortably in bed Mild pain over ankle Continue Lovenox Norvasc Cozaar Protonix ID on board Wound care Follow-up with labs
--- NOTE | 2016-12-27 11:30 | CP.PCM.PN ---
Subjective - Date & Time of Evaluation Date of Evaluation: 12/27/16 Time of Evaluation: 11:29 - Subjective Subjective: 71 y/o diabetic male patient seen at bedside this morning regarding f.u of right ankle ulceration. Pt seen resting comfortably in bed at time of visit. AAOx3, NAD. Does complain of some mild pain to the ankle today however says much improved. Denies f/n/v/c/sob/cp. Denies any other complaints at this time. Objective - Vital Signs/Intake and Output Vital Signs (last 24 hours): Temp Pulse Resp BP Pulse Ox 98.1 F 77 20 159/103 H 96 12/27/16 08:41 12/27/16 08:41 12/27/16 08:41 12/27/16 08:41 12/27/16 08:41 Intake and Output: 12/27/16 12/27/16 06:59 18:59 Intake Total 350 340 Output Total 600 Balance -250 340 - Medications Medications: Current Medications Amlodipine Besylate (Norvasc) 10 mg PO DAILY [facility] Last Admin: 12/27/16 09:13 Dose: 10 mg Bisoprolol Fumarate/HCTZ (Ziac 10-6.25 Mg) 1 tab PO DAILY [facility] Last Admin: 12/27/16 09:14 Dose: 1 tab Collagenase (Santyl) 0 gm TOP DAILY [facility] Last Admin: 12/27/16 09:15 Dose: 1 applic Enoxaparin Sodium (Lovenox) 40 mg SC DAILY [facility] Last Admin: 12/27/16 09:14 Dose: 40 mg Hydralazine HCl (Apresoline) 50 mg PO DAILY [facility] Last Admin: 12/27/16 09:14 Dose: 50 mg Piperacillin Sod/Tazobactam (Sod 3.375 gm/ Sodium Chloride) 100 mls @ 200 mls/ hr IVPB Q8H [facility] Last Admin: 12/27/16 02:36 Dose: 200 mls/hr Losartan Potassium (Cozaar) 100 mg PO DAILY [facility] Last Admin: 12/27/16 09:14 Dose: 100 mg Pantoprazole Sodium (Protonix Ec Tab) 40 mg PO DAILY [facility] Last Admin: 12/27/16 09:14 Dose: 40 mg - Labs Labs: 12/27/16 06:37 12/27/16 06:37 - Constitutional Appears: Well, Non-toxic, No Acute Distress - Extremities Exam Additional comments: Right low ext exam: Dressing appears c/d/i to the right foot Vasc: DP/PT pulses 2/4 B/L, CFT < 3sec x10 digits, skin temp WNL, mild perimalleolar edema noted at lateral right ankle in wound periphery Derm: 3.8cm x 2cm x 0.2cm dry ulceration noted to posterolateral aspect of right ankle with loose scabbing wound borders. Wound base contains a central eschar with fibrotic tissue peripherally. No tunneling, drainage, no malodor, no fluctuance, no probe to bone, no clinical signs of infection. Neuro: Protective sensation grossly intact B/L Ortho: No tenderness upon palpation of ulceration or ulcer periphery - Neurological Exam Neurological Exam: Alert, Awake, Oriented x3 - Psychiatric Exam Psychiatric exam: Normal Affect, Normal Mood Assessment and Plan - Assessment and Plan (Free Text) Assessment: 71 y/o diabetic male w/ right posterolateral ankle ulceration 2/2 diabetic neuropathy Plan: Pt S&E at bedside Plan discussed with attending Dr. Garcia in detail Chart, labs and vitals reviewed: afebrile, WBC 8.2 X-rays reviewed- no evidence of osteomyelitis, no acute fracture or dislocation Wound cx: (final) staph aureus c/w IV abx, Dr. Diamond on consult, recommendations appreciated Right foot cleansed and dressed with santyl and DSD Patient to go to OR on wed. 9am with Dr. Garcia for wound debridement Podiatry will continue to follow while in house
--- NOTE | 2016-12-27 12:36 | CP.PCM.PN ---
Subjective - Date & Time of Evaluation Date of Evaluation: 12/27/16 Time of Evaluation: 09:00 - Subjective Subjective: events noted iv rx in progress Objective - Vital Signs/Intake and Output Vital Signs (last 24 hours): Temp Pulse Resp BP Pulse Ox 98.1 F 77 20 159/103 H 96 12/27/16 08:41 12/27/16 08:41 12/27/16 08:41 12/27/16 08:41 12/27/16 08:41 Intake and Output: 12/27/16 12/27/16 06:59 18:59 Intake Total 350 340 Output Total 600 Balance -250 340 - Medications Medications: Current Medications Amlodipine Besylate (Norvasc) 10 mg PO DAILY [facility] Last Admin: 12/27/16 09:13 Dose: 10 mg Bisoprolol Fumarate/HCTZ (Ziac 10-6.25 Mg) 1 tab PO DAILY [facility] Last Admin: 12/27/16 09:14 Dose: 1 tab Collagenase (Santyl) 0 gm TOP DAILY [facility] Last Admin: 12/27/16 09:15 Dose: 1 applic Enoxaparin Sodium (Lovenox) 40 mg SC DAILY [facility] Last Admin: 12/27/16 09:14 Dose: 40 mg Hydralazine HCl (Apresoline) 50 mg PO DAILY [facility] Last Admin: 12/27/16 09:14 Dose: 50 mg Piperacillin Sod/Tazobactam (Sod 3.375 gm/ Sodium Chloride) 100 mls @ 200 mls/ hr IVPB Q8H [facility] Last Admin: 12/27/16 11:39 Dose: 200 mls/hr Losartan Potassium (Cozaar) 100 mg PO DAILY [facility] Last Admin: 12/27/16 09:14 Dose: 100 mg Pantoprazole Sodium (Protonix Ec Tab) 40 mg PO DAILY [facility] Last Admin: 12/27/16 09:14 Dose: 40 mg - Labs Labs: 12/27/16 06:37 12/27/16 06:37 - Constitutional Appears: Non-toxic, Chronically Ill - Head Exam Head Exam: NORMOCEPHALIC - Eye Exam Eye Exam: PERRL. absent: Scleral icterus - ENT Exam ENT Exam: Mucous Membranes Dry - Neck Exam Neck Exam: absent: Lymphadenopathy - Respiratory Exam Respiratory Exam: Decreased Breath Sounds - Cardiovascular Exam Cardiovascular Exam: REGULAR RHYTHM - GI/Abdominal Exam GI & Abdominal Exam: Distended Assessment and Plan (1) Failure of outpatient treatment Status: Acute
--- NOTE | 2016-12-27 12:48 | CARD ---
APPROVED REPORT EKG Measurement Heart [id number] <Conclusion> Poor data quality, interpretation may be adversely affected Normal sinus rhythm Possible Left atrial enlargement Borderline ECG
[2016-12-28] MEDS: Piperacillin/Tazobact 3.375 GM in Sodium Chloride 100 ML IVPB SCH ×3 (02:53→18:36)
[2016-12-28] MEDS: Bisoprolol-HCTZ 10-6.25 mg Tab PO SCH (09:34)
[2016-12-28] MEDS: Pantoprazole 40 mg EC Tab PO SCH (09:34)
[2016-12-28] MEDS: Enoxaparin 40 mg Syringe SC SCH (09:34)
[2016-12-28] MEDS: Collagenase 250 Units/gm Ointment(30 gm) TOP SCH (09:37)
--- NOTE | 2016-12-28 10:01 | CP.PCM.PN ---
Subjective - Date & Time of Evaluation Date of Evaluation: 12/28/16 Time of Evaluation: 09:58 - Subjective Subjective: 71 y/o diabetic male patient seen at bedside this morning with attending Dr. Garcia regarding f.u of right ankle ulceration. Pt seen resting comfortably in bed at time of visit. AAOx3, NAD. Does complain of some mild pain to the ankle today however says much improved. Denies f/n/v/c/sob/cp. Denies any other complaints at this time. Objective - Vital Signs/Intake and Output Vital Signs (last 24 hours): Temp Pulse Resp BP Pulse Ox 98.3 F 65 20 146/60 97 12/28/16 09:41 12/28/16 09:41 12/28/16 09:41 12/28/16 09:41 12/28/16 09:41 Intake and Output: 12/28/16 12/28/16 06:59 18:59 Intake Total 690 Output Total 800 Balance -110 - Medications Medications: Current Medications Amlodipine Besylate (Norvasc) 10 mg PO DAILY [facility] Last Admin: 12/28/16 09:34 Dose: 10 mg Bisoprolol Fumarate/HCTZ (Ziac 10-6.25 Mg) 1 tab PO DAILY [facility] Last Admin: 12/28/16 09:34 Dose: 1 tab Collagenase (Santyl) 0 gm TOP DAILY [facility] Last Admin: 12/28/16 09:37 Dose: 1 applic Enoxaparin Sodium (Lovenox) 40 mg SC DAILY [facility] Last Admin: 12/28/16 09:34 Dose: 40 mg Hydralazine HCl (Apresoline) 50 mg PO DAILY [facility] Last Admin: 12/28/16 09:34 Dose: 50 mg Piperacillin Sod/Tazobactam (Sod 3.375 gm/ Sodium Chloride) 100 mls @ 200 mls/ hr IVPB Q8H [facility] Last Admin: 12/28/16 02:53 Dose: 200 mls/hr Losartan Potassium (Cozaar) 100 mg PO DAILY [facility] Last Admin: 12/28/16 09:34 Dose: 100 mg Pantoprazole Sodium (Protonix Ec Tab) 40 mg PO DAILY [facility] Last Admin: 12/28/16 09:34 Dose: 40 mg - Labs Labs: 12/27/16 06:37 12/27/16 06:37 - Constitutional Appears: Well, Non-toxic, No Acute Distress - Extremities Exam Additional comments: Dressing appears c/d/i to the right foot Vasc: DP/PT pulses 2/4 B/L, CFT < 3sec x10 digits, skin temp WNL, mild perimalleolar edema noted at lateral right ankle in wound periphery Derm: 3.8cm x 2cm x 0.2cm dry ulceration noted to posterolateral aspect of right ankle with loose scabbing wound borders. Wound base contains a central eschar with fibrotic tissue peripherally. No tunneling, drainage, no malodor, no fluctuance, no probe to bone, no clinical signs of infection. Neuro: Protective sensation grossly intact B/L Ortho: No tenderness upon palpation of ulceration or ulcer periphery - Neurological Exam Neurological Exam: Alert, Awake, Oriented x3 - Psychiatric Exam Psychiatric exam: Normal Affect Assessment and Plan - Assessment and Plan (Free Text) Assessment: 71 y/o diabetic male w/ right posterolateral ankle ulceration 2/2 diabetic neuropathy Plan: Pt S&E at bedside with attending Dr. Garcia Chart, labs and vitals reviewed: afebrile X-rays reviewed- no evidence of osteomyelitis, no acute fracture or dislocation Wound cx: (final) staph aureus c/w IV abx, Dr. Diamond on consult, recommendations appreciated Right ankle cleansed and dressed with santyl and DSD Patient to go to OR tomorrow morning. 9am with Dr. Garcia for wound debridement patient NPO after midnight Podiatry will continue to follow while in house
--- NOTE | 2016-12-28 10:52 | CP.PCM.PN ---
Subjective - Date & Time of Evaluation Date of Evaluation: 12/28/16 Time of Evaluation: 08:40 - Subjective Subjective: clinically same Objective - Vital Signs/Intake and Output Vital Signs (last 24 hours): Temp Pulse Resp BP Pulse Ox 98.3 F 65 20 146/60 97 12/28/16 09:41 12/28/16 09:41 12/28/16 09:41 12/28/16 09:41 12/28/16 09:41 Intake and Output: 12/28/16 12/28/16 06:59 18:59 Intake Total 690 Output Total 800 Balance -110 - Medications Medications: Current Medications Amlodipine Besylate (Norvasc) 10 mg PO DAILY [facility] Last Admin: 12/28/16 09:34 Dose: 10 mg Bisoprolol Fumarate/HCTZ (Ziac 10-6.25 Mg) 1 tab PO DAILY [facility] Last Admin: 12/28/16 09:34 Dose: 1 tab Collagenase (Santyl) 0 gm TOP DAILY [facility] Last Admin: 12/28/16 09:37 Dose: 1 applic Enoxaparin Sodium (Lovenox) 40 mg SC DAILY [facility] Last Admin: 12/28/16 09:34 Dose: 40 mg Hydralazine HCl (Apresoline) 50 mg PO DAILY [facility] Last Admin: 12/28/16 09:34 Dose: 50 mg Piperacillin Sod/Tazobactam (Sod 3.375 gm/ Sodium Chloride) 100 mls @ 200 mls/ hr IVPB Q8H [facility] Last Admin: 12/28/16 02:53 Dose: 200 mls/hr Losartan Potassium (Cozaar) 100 mg PO DAILY [facility] Last Admin: 12/28/16 09:34 Dose: 100 mg Pantoprazole Sodium (Protonix Ec Tab) 40 mg PO DAILY [facility] Last Admin: 12/28/16 09:34 Dose: 40 mg - Labs Labs: 12/27/16 06:37 12/27/16 06:37 - Constitutional Appears: Well - Head Exam Head Exam: ATRAUMATIC, NORMAL INSPECTION, NORMOCEPHALIC - Eye Exam Eye Exam: EOMI, Normal appearance, PERRL Pupil Exam: NORMAL ACCOMODATION, PERRL - ENT Exam ENT Exam: Mucous Membranes Moist, Normal Exam - Neck Exam Neck Exam: Full ROM, Normal Inspection. absent: Lymphadenopathy - Respiratory Exam Respiratory Exam: Decreased Breath Sounds - Cardiovascular Exam Cardiovascular Exam: REGULAR RHYTHM, +S1, +S2 - GI/Abdominal Exam GI & Abdominal Exam: Soft, Diminished Bowel Sounds - Rectal Exam Rectal Exam: Deferred Assessment and Plan (1) Diabetic ulcer of ankle Status: Acute (2) Failure of outpatient treatment Status: Acute (3) HTN (hypertension) Status: Acute (4) Non-healing ulcer of ankle Status: Chronic - Assessment and Plan (Free Text) Plan: Continue same Patient hemodynamically stable Resting comfortably Plan: Debridement next a.m. N.p.o. after midnight Dr. Diamond Wound care Continue Norvas Due to prophylaxis Cozaar Protonix Follow-up with labs
--- NOTE | 2016-12-28 12:42 | CP.PCM.PN ---
Subjective - Date & Time of Evaluation Date of Evaluation: 12/28/16 Time of Evaluation: 09:00 - Subjective Subjective: for or in am debridement c/s non mrsa cont rx Objective - Vital Signs/Intake and Output Vital Signs (last 24 hours): Temp Pulse Resp BP Pulse Ox 98.3 F 65 20 146/60 97 12/28/16 09:41 12/28/16 10:53 12/28/16 09:41 12/28/16 09:41 12/28/16 10:53 Intake and Output: 12/28/16 12/28/16 06:59 18:59 Intake Total 690 Output Total 800 Balance -110 - Medications Medications: Current Medications Amlodipine Besylate (Norvasc) 10 mg PO DAILY [facility] Last Admin: 12/28/16 09:34 Dose: 10 mg Bisoprolol Fumarate/HCTZ (Ziac 10-6.25 Mg) 1 tab PO DAILY [facility] Last Admin: 12/28/16 09:34 Dose: 1 tab Collagenase (Santyl) 0 gm TOP DAILY [facility] Last Admin: 12/28/16 09:37 Dose: 1 applic Enoxaparin Sodium (Lovenox) 40 mg SC DAILY [facility] Last Admin: 12/28/16 09:34 Dose: 40 mg Hydralazine HCl (Apresoline) 50 mg PO DAILY [facility] Last Admin: 12/28/16 09:34 Dose: 50 mg Piperacillin Sod/Tazobactam (Sod 3.375 gm/ Sodium Chloride) 100 mls @ 200 mls/ hr IVPB Q8H [facility] Last Admin: 12/28/16 12:08 Dose: 200 mls/hr Losartan Potassium (Cozaar) 100 mg PO DAILY [facility] Last Admin: 12/28/16 09:34 Dose: 100 mg Pantoprazole Sodium (Protonix Ec Tab) 40 mg PO DAILY [facility] Last Admin: 12/28/16 09:34 Dose: 40 mg - Labs Labs: 12/27/16 06:37 12/27/16 06:37 - Constitutional Appears: Non-toxic, Chronically Ill - Head Exam Head Exam: NORMOCEPHALIC - Eye Exam Eye Exam: PERRL. absent: Scleral icterus - ENT Exam ENT Exam: Mucous Membranes Dry, Normal External Ear Exam - Neck Exam Neck Exam: absent: Lymphadenopathy, Thyromegaly - Respiratory Exam Respiratory Exam: Decreased Breath Sounds, Clear to Ausculation Bilateral - Cardiovascular Exam Cardiovascular Exam: REGULAR RHYTHM - GI/Abdominal Exam GI & Abdominal Exam: Distended, Soft - Rectal Exam Rectal Exam: Deferred Assessment and Plan (1) Failure of outpatient treatment Status: Acute
--- NOTE | 2016-12-28 13:20 | CP.PCM.PN ---
Subjective - Date & Time of Evaluation Date of Evaluation: 12/28/16 Time of Evaluation: 13:17 - Subjective Subjective: will have surgery tomoro by pod dressind changed still has ulcer infected on iv antibiotics Objective - Vital Signs/Intake and Output Vital Signs (last 24 hours): Temp Pulse Resp BP Pulse Ox 98.3 F 65 20 146/60 97 12/28/16 09:41 12/28/16 10:53 12/28/16 09:41 12/28/16 09:41 12/28/16 10:53 Intake and Output: 12/28/16 12/28/16 06:59 18:59 Intake Total 690 Output Total 800 Balance -110 - Medications Medications: Current Medications Amlodipine Besylate (Norvasc) 10 mg PO DAILY [facility] Last Admin: 12/28/16 09:34 Dose: 10 mg Bisoprolol Fumarate/HCTZ (Ziac 10-6.25 Mg) 1 tab PO DAILY [facility] Last Admin: 12/28/16 09:34 Dose: 1 tab Collagenase (Santyl) 0 gm TOP DAILY [facility] Last Admin: 12/28/16 09:37 Dose: 1 applic Enoxaparin Sodium (Lovenox) 40 mg SC DAILY [facility] Last Admin: 12/28/16 09:34 Dose: 40 mg Hydralazine HCl (Apresoline) 50 mg PO DAILY [facility] Last Admin: 12/28/16 09:34 Dose: 50 mg Piperacillin Sod/Tazobactam (Sod 3.375 gm/ Sodium Chloride) 100 mls @ 200 mls/ hr IVPB Q8H [facility] Last Admin: 12/28/16 12:08 Dose: 200 mls/hr Losartan Potassium (Cozaar) 100 mg PO DAILY [facility] Last Admin: 12/28/16 09:34 Dose: 100 mg Pantoprazole Sodium (Protonix Ec Tab) 40 mg PO DAILY [facility] Last Admin: 12/28/16 09:34 Dose: 40 mg - Labs Labs: 12/27/16 06:37 12/27/16 06:37 - Constitutional Appears: Non-toxic - Head Exam Head Exam: NORMAL INSPECTION - Eye Exam Eye Exam: Normal appearance Pupil Exam: NORMAL ACCOMODATION - ENT Exam ENT Exam: Normal Oropharynx - Neck Exam Neck Exam: Full ROM - Respiratory Exam Respiratory Exam: NORMAL BREATHING PATTERN - Cardiovascular Exam Cardiovascular Exam: REGULAR RHYTHM - GI/Abdominal Exam GI & Abdominal Exam: Normal Bowel Sounds - Rectal Exam Rectal Exam: NORMAL INSPECTION - Extremities Exam Additional comments: ulcer infected leg - Back Exam Back Exam: NORMAL INSPECTION - Neurological Exam Neurological Exam: Oriented x3 - Psychiatric Exam Psychiatric exam: Normal Affect - Skin Skin Exam: Normal Color Assessment and Plan - Assessment and Plan (Free Text) Assessment: infected ulcer leg htn pre diabetes Plan: cont asper orders surgery in am
[2016-12-29] MEDS: Piperacillin/Tazobact 3.375 GM in Sodium Chloride 100 ML IVPB SCH ×3 (03:15→19:00)
[2016-12-29 07:22] LABS: INR 1.1
[2016-12-29] MEDS ORDERED: Bacitracin 50,000 UNIT in Sodium Chloride 0.9% Irrig 1,000 ML IR SCH (07:55)
[2016-12-29] MEDS ORDERED: Bupivacaine HCl 0.5% PF (10 ml) Inj ONE (08:10)
[2016-12-29] MEDS ORDERED: Lidocaine 2% Inj (20ml) ONE (08:10)
--- NOTE | 2016-12-29 08:37 | CP.PCM.PN ---
Subjective - Date & Time of Evaluation Date of Evaluation: 12/29/16 Time of Evaluation: 08:20 - Subjective Subjective: 71 y/o diabetic male patient seen at bedside for right ankle ulceration. Pt seen resting comfortably in bed at time of visit. Present with clean and intact dressing and mild strikeththrough. AAOx3, NAD. Pt complains of mild pain with ambulation. He denies f/n/v/c/sob/cp. Patient states he did not eat since midnight. He reports drinking a sip of water this morning. Denies any other complaints at this time. Patient will go to OR this morning for wound debridement right ankle with Dr. Turner. Objective - Vital Signs/Intake and Output Vital Signs (last 24 hours): Temp Pulse Resp BP Pulse Ox 98.6 F 68 20 158/88 H 98 12/29/16 07:32 12/29/16 07:32 12/29/16 07:32 12/29/16 07:32 12/29/16 07:32 Intake and Output: 12/29/16 12/29/16 06:59 18:59 Intake Total 100 Output Total 350 Balance -250 - Medications Medications: Current Medications Amlodipine Besylate (Norvasc) 10 mg PO DAILY [facility] Last Admin: 12/28/16 09:34 Dose: 10 mg Bisoprolol Fumarate/HCTZ (Ziac 10-6.25 Mg) 1 tab PO DAILY [facility] Last Admin: 12/28/16 09:34 Dose: 1 tab Collagenase (Santyl) 0 gm TOP DAILY [facility] Last Admin: 12/28/16 09:37 Dose: 1 applic Enoxaparin Sodium (Lovenox) 40 mg SC DAILY [facility] Last Admin: 12/28/16 09:34 Dose: 40 mg Hydralazine HCl (Apresoline) 50 mg PO DAILY [facility] Last Admin: 12/28/16 09:34 Dose: 50 mg Piperacillin Sod/Tazobactam (Sod 3.375 gm/ Sodium Chloride) 100 mls @ 200 mls/ hr IVPB Q8H [facility] Last Admin: 12/29/16 03:15 Dose: 200 mls/hr Bacitracin 50,000 unit/ Sodium (Chloride) 1,000 mls @ 1,000 mls/hr IR .Q1H [facility] Stop: 12/29/16 08:54 Losartan Potassium (Cozaar) 100 mg PO DAILY [facility] Last Admin: 12/28/16 09:34 Dose: 100 mg Pantoprazole Sodium (Protonix Ec Tab) 40 mg PO DAILY [facility] Last Admin: 12/28/16 09:34 Dose: 40 mg - Labs Labs: 12/27/16 06:37 12/27/16 06:37 PT 12.7 SECONDS (9.7-12.2) H 12/29/16 07:01 INR 1.1 12/29/16 07:01 APTT 34 SECONDS (21-34) 12/29/16 07:01 - Extremities Exam Additional comments: Vasc: DP/PT pulses 2/4 B/L, CFT < 3sec x10 digits, skin temp WNL, mild perimalleolar edema noted at lateral right ankle in wound periphery Derm: 3.8cm x 2cm x 0.2cm dry ulceration noted to posterolateral aspect of right ankle with loose scabbing wound borders. Wound base contains a central eschar with fibrotic tissue peripherally. No tunneling, drainage, no malodor, no fluctuance, no probe to bone, no clinical signs of infection. Neuro: Protective sensation grossly intact B/L Ortho: No tenderness upon palpation of ulceration or ulcer periphery Assessment and Plan - Assessment and Plan (Free Text) Assessment: 71 y/o diabetic male w/ right posterolateral ankle ulceration 2/2 diabetic neuropathy Plan: Pt was seen and examined Pt NPO status was confirmed All pre-op testing and clearance was in the chart PT has exhausted all conservative treatment at this time and is opting for surgical intervention Pt was explained procedure and post operative course All pt's questions were answered to satisfaction No guarantees were made Pt understands all risks, benefits and complications of procedure Pt will follow-up with Dr. Garcia
[2016-12-29] MEDS ORDERED: Lactated Ringer's 1,000 ML IV ONE ×2 (08:49)
[2016-12-29] MEDS ORDERED: Midazolam 2 MG/2 ML VIAL ONE (08:56)
[2016-12-29] MEDS ORDERED: Propofol 10 mg/ml Inj (20 ML) ONE (08:57)
--- NOTE | 2016-12-29 09:44 | PCM.SURG1 ---
Surgeon's Initial Post Op Note - Surgeon's Notes Surgeon: Dr. Garcia, DPM Shareholder: Dr. Bender PGY-1, Dr. Olson PGY-1 Type of Anesthesia: IV Sedation, Local Anesthesia Administered By: 20 cc 1:1 2% lidocaine plain and .5% marcaine plain Pre-Operative Diagnosis: right ankle gangrene Operative Findings: see dictation. injectables and materials: none Post-Operative Diagnosis: same Operation Performed: gangrene debridement of right ankle via versajet Specimen/Specimens Removed: none Estimated Blood Loss: EBL {In ML}: 5 Blood Products Given: N/A Drains Used: No Drains Post-Op Condition: Good Date of Surgery/Procedure: 12/29/16 Time of Surgery/Procedure: 09:10
[2016-12-29] MEDS ORDERED: Oxycodone/Acetaminophen 5/325 mg Tab PO PRN (09:47)
[2016-12-29] MEDS ORDERED: HYDROmorphone 0.5 mg/0.5 ml ISec IVP PRN (09:54)
[2016-12-29] MEDS: Bisoprolol-HCTZ 10-6.25 mg Tab PO SCH (10:00)
[2016-12-29] MEDS: Pantoprazole 40 mg EC Tab PO SCH (10:00)
[2016-12-29] MEDS: Collagenase 250 Units/gm Ointment(30 gm) TOP SCH (10:00)
--- NOTE | 2016-12-29 14:54 | VASCLAB ---
PROCEDURE: HISTORY: ulcer right ankle COMPARISON: None available. TECHNIQUE: Grayscale and duplex Doppler evaluation of the right common femoral, femoral, profunda femoral, popliteal, posterior tibial, anterior tibial and dorsalis pedis arteries was performed. Report prepared by TON Sanchez, RVT FINDINGS: RIGHT LOWER EXTREMITY: * Common Femoral Artery: Peak Systolic Velocity - 105: Doppler Waveform: Triphasic.: Plaque description - * Profunda Femoral Artery: Peak Systolic Velocity - 45: Doppler Waveform: Triphasic.: Plaque description - * Femoral Artery o Proximal Segment: Peak Systolic Velocity - 83: Doppler Waveform: Triphasic.: Plaque description - o Middle Segment: Peak Systolic Velocity - 92: Doppler Waveform: Triphasic.: Plaque description - o Distal Segment: Peak Systolic Velocity - 78: Doppler Waveform: Triphasic.: Plaque description - * Popliteal Artery o Proximal Segment: Peak Systolic Velocity - 58: Doppler Waveform: Triphasic.: Plaque description - o Middle Segment: Peak Systolic Velocity - 68: Doppler Waveform: Triphasic.: Plaque description - o Distal Segment: Peak Systolic Velocity - 83: Doppler Waveform: Triphasic.: Plaque description - * Posterior Tibial Artery: Peak Systolic Velocity - 86: Doppler Waveform: Triphasic.: Plaque description - * Anterior Tibial Artery: Peak Systolic Velocity - 0: Doppler Waveform: Absent: Plaque description - * Dorsalis Pedis Artery: Peak Systolic Velocity - : Doppler Waveform: : Plaque description - OTHER FINDINGS: IMPRESSION: RIGHT: Normal flow velocities noted in the right common femoral, profunda femoral, superficial femoral, popliteal and posterior tibial arteries.Possible occlusion of the right mid to distal anterior tibial artery.
--- NOTE | 2016-12-29 15:18 | CP.PCM.PN ---
Subjective - Date & Time of Evaluation Date of Evaluation: 12/29/16 Time of Evaluation: 15:16 - Subjective Subjective: PGY2 progress note for Dr. Mcfarland Pt is seen and examined at bedside. Patient is scheduled for OR this morning. Patient has been made NPO past midnight. Patient denie shaving any CP, SOB, abd pain. 12 point ROS are negative except for the above mentioned. Objective - Vital Signs/Intake and Output Vital Signs (last 24 hours): Temp Pulse Resp BP Pulse Ox 98.6 F 58 L 15 133/79 99 12/29/16 10:40 12/29/16 10:40 12/29/16 10:40 12/29/16 10:40 12/29/16 10:40 Intake and Output: 12/29/16 12/29/16 06:59 18:59 Intake Total 100 320 Output Total 350 450 Balance -250 -130 - Medications Medications: Current Medications Acetaminophen (Tylenol 325mg Tab) 650 mg PO Q6 PRN PRN Reason: Pain, Mild (1-3) Amlodipine Besylate (Norvasc) 10 mg PO DAILY [facility] Last Admin: 12/29/16 09:00 Dose: 10 mg Bisoprolol Fumarate/HCTZ (Ziac 10-6.25 Mg) 1 tab PO DAILY [facility] Last Admin: 12/29/16 10:00 Dose: Not Given Collagenase (Santyl) 0 gm TOP DAILY [facility] Last Admin: 12/29/16 10:00 Dose: Not Given Enoxaparin Sodium (Lovenox) 40 mg SC DAILY [facility] Last Admin: 12/28/16 09:34 Dose: 40 mg Hydralazine HCl (Apresoline) 50 mg PO DAILY [facility] Last Admin: 12/29/16 09:00 Dose: 50 mg Piperacillin Sod/Tazobactam (Sod 3.375 gm/ Sodium Chloride) 100 mls @ 200 mls/ hr IVPB Q8H [facility] Last Admin: 12/29/16 11:00 Dose: 100 mls Losartan Potassium (Cozaar) 100 mg PO DAILY [facility] Last Admin: 12/29/16 09:00 Dose: 100 mg Oxycodone/Acetaminophen (Percocet 5/325 Mg Tab) 1 tab PO Q4H PRN PRN Reason: Pain, moderate (4-7) Stop: 01/01/17 09:48 Last Admin: 12/29/16 14:28 Dose: 1 tab Oxycodone/Acetaminophen (Percocet 5/325 Mg Tab) 2 tab PO Q4H PRN PRN Reason: Pain, severe (8-10) Stop: 01/01/17 09:48 Pantoprazole Sodium (Protonix Ec Tab) 40 mg PO DAILY [facility] Last Admin: 12/29/16 10:00 Dose: Not Given - Labs Labs: 12/27/16 06:37 12/27/16 06:37 PT 12.7 SECONDS (9.7-12.2) H 12/29/16 07:01 INR 1.1 12/29/16 07:01 APTT 34 SECONDS (21-34) 12/29/16 07:01 - Constitutional Appears: Non-toxic, No Acute Distress - Head Exam Head Exam: ATRAUMATIC - Respiratory Exam Respiratory Exam: absent: Accessory Muscle Use, Respiratory Distress - GI/Abdominal Exam GI & Abdominal Exam: absent: Distended, Guarding - Extremities Exam Additional comments: right foot bandaged up after OR - Neurological Exam Neurological Exam: Alert, Awake, Oriented x3 - Psychiatric Exam Psychiatric exam: Normal Affect, Normal Mood Assessment and Plan - Assessment and Plan (Free Text) Assessment: 71 year old male with past medical history of HTN is being seen for HTN. HTN - Continue Norvasc 10 mg po QD, Ziac 10-6.25 mg po qd, Hydralazine 50 mg po qd, Cozaar 100 mg PO QD - will continue to monitor VS Glucose metabolism intolerance - Hgb A 1c checked is 6.2 - Blood sugar has been stable throughout stay Right foot ulcer - s/p ulcer debridement in OR today - management per podiatry Orders and management per Dr. Mcfarland
--- NOTE | 2016-12-29 17:23 | CP.PCM.PN ---
Subjective - Date & Time of Evaluation Date of Evaluation: 12/29/16 Time of Evaluation: 08:20 - Subjective Subjective: clinically same Objective - Vital Signs/Intake and Output Vital Signs (last 24 hours): Temp Pulse Resp BP Pulse Ox 98.6 F 58 L 15 133/79 99 12/29/16 10:40 12/29/16 10:40 12/29/16 10:40 12/29/16 10:40 12/29/16 10:40 Intake and Output: 12/29/16 12/29/16 06:59 18:59 Intake Total 100 320 Output Total 350 450 Balance -250 -130 - Medications Medications: Current Medications Acetaminophen (Tylenol 325mg Tab) 650 mg PO Q6 PRN PRN Reason: Pain, Mild (1-3) Amlodipine Besylate (Norvasc) 10 mg PO DAILY [facility] Last Admin: 12/29/16 09:00 Dose: 10 mg Bisoprolol Fumarate/HCTZ (Ziac 10-6.25 Mg) 1 tab PO DAILY [facility] Last Admin: 12/29/16 10:00 Dose: Not Given Collagenase (Santyl) 0 gm TOP DAILY [facility] Last Admin: 12/29/16 10:00 Dose: Not Given Enoxaparin Sodium (Lovenox) 40 mg SC DAILY [facility] Last Admin: 12/28/16 09:34 Dose: 40 mg Hydralazine HCl (Apresoline) 50 mg PO DAILY [facility] Last Admin: 12/29/16 09:00 Dose: 50 mg Piperacillin Sod/Tazobactam (Sod 3.375 gm/ Sodium Chloride) 100 mls @ 200 mls/ hr IVPB Q8H [facility] Last Admin: 12/29/16 11:00 Dose: 100 mls Losartan Potassium (Cozaar) 100 mg PO DAILY [facility] Last Admin: 12/29/16 09:00 Dose: 100 mg Oxycodone/Acetaminophen (Percocet 5/325 Mg Tab) 1 tab PO Q4H PRN PRN Reason: Pain, moderate (4-7) Stop: 01/01/17 09:48 Last Admin: 12/29/16 14:28 Dose: 1 tab Oxycodone/Acetaminophen (Percocet 5/325 Mg Tab) 2 tab PO Q4H PRN PRN Reason: Pain, severe (8-10) Stop: 01/01/17 09:48 Pantoprazole Sodium (Protonix Ec Tab) 40 mg PO DAILY [facility] Last Admin: 12/29/16 10:00 Dose: Not Given - Labs Labs: 12/27/16 06:37 12/27/16 06:37 PT 12.7 SECONDS (9.7-12.2) H 12/29/16 07:01 INR 1.1 12/29/16 07:01 APTT 34 SECONDS (21-34) 12/29/16 07:01 - Constitutional Appears: Well - Head Exam Head Exam: ATRAUMATIC, NORMAL INSPECTION, NORMOCEPHALIC - Eye Exam Eye Exam: EOMI, Normal appearance, PERRL Pupil Exam: NORMAL ACCOMODATION, PERRL - ENT Exam ENT Exam: Mucous Membranes Moist, Normal Exam - Neck Exam Neck Exam: Full ROM, Normal Inspection. absent: Lymphadenopathy - Respiratory Exam Respiratory Exam: Decreased Breath Sounds - Cardiovascular Exam Cardiovascular Exam: REGULAR RHYTHM, +S1, +S2 - GI/Abdominal Exam GI & Abdominal Exam: Soft, Diminished Bowel Sounds - Rectal Exam Rectal Exam: Deferred Assessment and Plan (1) Diabetic ulcer of ankle Status: Acute (2) Failure of outpatient treatment Status: Acute (3) HTN (hypertension) Status: Acute (4) Non-healing ulcer of ankle Status: Chronic - Assessment and Plan (Free Text) Plan: Patient seen and examined at bedside OR this morning Clinically stable Continue antibiotics Continue nose [facility] Wound care Monitor vital signs Blood sugar checks Follow-up after or
--- NOTE | 2016-12-29 18:37 | CP.PCM.PN ---
Subjective - Date & Time of Evaluation Date of Evaluation: 12/29/16 Time of Evaluation: 09:00 - Subjective Subjective: wound dry Objective - Vital Signs/Intake and Output Vital Signs (last 24 hours): Temp Pulse Resp BP Pulse Ox 98.6 F 58 L 15 133/79 99 12/29/16 10:40 12/29/16 10:40 12/29/16 10:40 12/29/16 10:40 12/29/16 10:40 Intake and Output: 12/29/16 12/29/16 06:59 18:59 Intake Total 100 320 Output Total 350 450 Balance -250 -130 - Medications Medications: Current Medications Acetaminophen (Tylenol 325mg Tab) 650 mg PO Q6 PRN PRN Reason: Pain, Mild (1-3) Amlodipine Besylate (Norvasc) 10 mg PO DAILY [facility] Last Admin: 12/29/16 09:00 Dose: 10 mg Bisoprolol Fumarate/HCTZ (Ziac 10-6.25 Mg) 1 tab PO DAILY [facility] Last Admin: 12/29/16 10:00 Dose: Not Given Collagenase (Santyl) 0 gm TOP DAILY [facility] Last Admin: 12/29/16 10:00 Dose: Not Given Enoxaparin Sodium (Lovenox) 40 mg SC DAILY [facility] Last Admin: 12/28/16 09:34 Dose: 40 mg Hydralazine HCl (Apresoline) 50 mg PO DAILY [facility] Last Admin: 12/29/16 09:00 Dose: 50 mg Piperacillin Sod/Tazobactam (Sod 3.375 gm/ Sodium Chloride) 100 mls @ 200 mls/ hr IVPB Q8H [facility] Last Admin: 12/29/16 11:00 Dose: 100 mls Losartan Potassium (Cozaar) 100 mg PO DAILY [facility] Last Admin: 12/29/16 09:00 Dose: 100 mg Oxycodone/Acetaminophen (Percocet 5/325 Mg Tab) 1 tab PO Q4H PRN PRN Reason: Pain, moderate (4-7) Stop: 01/01/17 09:48 Last Admin: 12/29/16 14:28 Dose: 1 tab Oxycodone/Acetaminophen (Percocet 5/325 Mg Tab) 2 tab PO Q4H PRN PRN Reason: Pain, severe (8-10) Stop: 01/01/17 09:48 Pantoprazole Sodium (Protonix Ec Tab) 40 mg PO DAILY [facility] Last Admin: 12/29/16 10:00 Dose: Not Given - Labs Labs: 12/27/16 06:37 12/27/16 06:37 PT 12.7 SECONDS (9.7-12.2) H 12/29/16 07:01 INR 1.1 12/29/16 07:01 APTT 34 SECONDS (21-34) 12/29/16 07:01 - Constitutional Appears: Non-toxic, Chronically Ill - Head Exam Head Exam: NORMOCEPHALIC - Eye Exam Eye Exam: PERRL. absent: Scleral icterus - ENT Exam ENT Exam: Mucous Membranes Dry, Normal External Ear Exam - Neck Exam Neck Exam: absent: Lymphadenopathy - Respiratory Exam Respiratory Exam: Decreased Breath Sounds - Cardiovascular Exam Cardiovascular Exam: REGULAR RHYTHM - GI/Abdominal Exam GI & Abdominal Exam: Distended, Soft Assessment and Plan (1) Failure of outpatient treatment Status: Acute - Assessment and Plan (Free Text) Plan: cont iv antibiotics
[2016-12-29] MEDS: Piperacill/Tazo 3.375gm in Dex 3.375 GM/50 ML BAG IVPB SCH (19:30)
[2016-12-29] MEDS: Oxycodone/Acetaminophen 5/325 mg Tab PO PRN (21:36)
[2016-12-30] MEDS: Piperacillin/Tazobact 3.375 GM in Sodium Chloride 100 ML IVPB SCH ×3 (03:50→18:35)
--- NOTE | 2016-12-30 07:54 | OP ---
PROCEDURE DATE: 12/29/2016 PREOPERATIVE DIAGNOSIS: Gangrene of right ankle. POSTOPERATIVE DIAGNOSIS: Gangrene of right ankle. NAME OF PROCEDURE: Gangrene debridement of right ankle with Versajet. SURGEON: Kyle Oconnor DPM ASSISTANTS: Hector Bender DPM, PGY-1 and Umesh Olson DPM, PGY 1. TYPE OF ANESTHESIA: IV sedation with local. ANESTHESIA ADMINISTERED BY: Miriam Almanza INDICATION: The patient is a 71-year-old male with above diagnosis. The patient has exhausted all conservative treatment at this time and now requires surgical intervention. The patient signed the consent after careful explanation of risks, benefits, complications, and alternatives for surgical procedure. No guarantees were given nor implied. NPO status was confirmed prior to taking the patient to the OR. DESCRIPTION OF PROCEDURE: The patient was brought into the OR and placed on the operating room table in a supine position. A time-out was performed for identification of the correct patient and procedure. After induction IV sedation, the patient received a total of 20 mL of a 1:1 mixture of 0.5% Marcaine plain and 2% lidocaine plain in a local block type fashion of the right ankle. The lower extremity was then prepped and draped in the normal sterile manner and then the procedure began. No tourniquet was used during the procedure. Attention was then directed to the lateral aspect of the right ankle where the ulceration is located. The ulceration measures approximately 3.8 x 2 x 0.2 cm with loose scabbing wound borders and wound base with a center eschar and fibrotic tissue peripherally. An opening was made in the center eschar using a blade #15. Wound culture was taken and passed off the field to be sent to pathology. Then, the ulcer was circumferentially and excisionally debrided using a blade #15, Metzenbaum, and a pickup down to subcutaneous level. Using Versajet on power levels 7 and 9, the base of the ulceration was non-excisional debrided of all fibrotic and nonviable tissue until fresh healthy bleeding, granular tissue appeared at the surgical site. All bleeding vessels were ligated using a Bovie. The ulcer was then irrigated with copious amounts of hydrogen peroxide. The surgical site was then dressed with Xeroform, sterile gauze, ABD, and Kerlix. POSTOPERATIVE CONDITION: The patient tolerated the anesthesia and the procedure well and was escorted to the recovery room with vital signs stable and neurovascular status intact to the right leg. Patient may weight bear to the right lower extremity. Podiatry will continue to follow patient while in-house. Patient will follow up with Dr. Melvin upon discharge. [facility] Jacqueline Bender DPM MTDD
--- NOTE | 2016-12-30 07:58 | CP.PCM.PN ---
Subjective - Date & Time of Evaluation Date of Evaluation: 12/30/16 Time of Evaluation: 07:54 - Subjective Subjective: 71 y/o diabetic male patient seen at bedside this morning 1 day s/p right ankle wound debridement. Patient denies any acute events overnight. Patient denies any pain in the area. Pt seen resting comfortably in bed at time of visit. AAOx3 , NAD. Denies f/n/v/c/sob/cp. Denies any other complaints at this time. Objective - Vital Signs/Intake and Output Vital Signs (last 24 hours): Temp Pulse Resp BP Pulse Ox 97.7 F 91 H 20 101/70 93 L 12/30/16 07:39 12/30/16 07:39 12/30/16 07:39 12/30/16 07:39 12/30/16 07:39 Intake and Output: 12/30/16 12/30/16 06:59 18:59 Intake Total 340 Output Total 650 Balance -310 - Medications Medications: Current Medications Acetaminophen (Tylenol 325mg Tab) 650 mg PO Q6 PRN PRN Reason: Pain, Mild (1-3) Amlodipine Besylate (Norvasc) 10 mg PO DAILY [facility] Last Admin: 12/29/16 09:00 Dose: 10 mg Bisoprolol Fumarate/HCTZ (Ziac 10-6.25 Mg) 1 tab PO DAILY [facility] Last Admin: 12/29/16 10:00 Dose: Not Given Collagenase (Santyl) 0 gm TOP DAILY [facility] Last Admin: 12/29/16 10:00 Dose: Not Given Enoxaparin Sodium (Lovenox) 40 mg SC DAILY [facility] Last Admin: 12/28/16 09:34 Dose: 40 mg Hydralazine HCl (Apresoline) 50 mg PO DAILY [facility] Last Admin: 12/29/16 09:00 Dose: 50 mg Piperacillin Sod/Tazobactam (Sod 3.375 gm/ Sodium Chloride) 100 mls @ 200 mls/ hr IVPB Q8H [facility] Last Admin: 12/30/16 03:50 Dose: 200 mls/hr Losartan Potassium (Cozaar) 100 mg PO DAILY [facility] Last Admin: 12/29/16 09:00 Dose: 100 mg Oxycodone/Acetaminophen (Percocet 5/325 Mg Tab) 1 tab PO Q4H PRN PRN Reason: Pain, moderate (4-7) Stop: 01/01/17 09:48 Last Admin: 12/29/16 14:28 Dose: 1 tab Oxycodone/Acetaminophen (Percocet 5/325 Mg Tab) 2 tab PO Q4H PRN PRN Reason: Pain, severe (8-10) Stop: 01/01/17 09:48 Last Admin: 12/29/16 21:36 Dose: 2 tab Pantoprazole Sodium (Protonix Ec Tab) 40 mg PO DAILY [facility] Last Admin: 12/29/16 10:00 Dose: Not Given - Labs Labs: 12/27/16 06:37 12/27/16 06:37 PT 12.7 SECONDS (9.7-12.2) H 12/29/16 07:01 INR 1.1 12/29/16 07:01 APTT 34 SECONDS (21-34) 12/29/16 07:01 - Constitutional Appears: Well, Non-toxic, No Acute Distress - Extremities Exam Additional comments: Dressing appears c/d/i to the right foot Vasc: DP/PT pulses 2/4 B/L, CFT < 3sec x10 digits, skin temp WNL, mild perimalleolar edema noted at lateral right ankle in wound periphery Derm: 5cm x 3cm x 0.8cm ulceration noted to posterolateral aspect of right ankle with granular base, fibrotic border. No tunneling, drainage, no malodor, no fluctuance, no probe to bone, no clinical signs of infection. Neuro: Protective sensation grossly intact B/L Ortho: No tenderness upon palpation of ulceration or ulcer periphery - Neurological Exam Neurological Exam: Alert, Awake, Oriented x3 - Psychiatric Exam Psychiatric exam: Normal Affect, Normal Mood Assessment and Plan - Assessment and Plan (Free Text) Assessment: 71 y/o diabetic male seen at bedside 1 day s/p right ankle wound debridement Plan: Pt S&E at bedside with attending Dr. Turner Chart, labs and vitals reviewed: afebrile X-rays reviewed- no evidence of osteomyelitis, no acute fracture or dislocation Wound cx: (final) staph aureus f/u intra-operative wound cx c/w IV abx, Dr. Diamond on consult, recommendations appreciated Right ankle cleansed with hydrogen peroxide applied xeroform, DSD to right foot Rx wound vac- will apply once delivered once wound vac is applied- patient stable for d/c to [facility] and will follow up with Dr. Turner there Podiatry will continue to follow while in house
[2016-12-30] MEDS: Bisoprolol-HCTZ 10-6.25 mg Tab PO SCH (09:48)
[2016-12-30] MEDS: Pantoprazole 40 mg EC Tab PO SCH (09:48)
[2016-12-30] MEDS: Enoxaparin 40 mg Syringe SC SCH (09:49)
[2016-12-30] MEDS: Collagenase 250 Units/gm Ointment(30 gm) TOP SCH (09:51)
--- NOTE | 2016-12-30 20:14 | CP.PCM.PN ---
Subjective - Date & Time of Evaluation Date of Evaluation: 12/30/16 Time of Evaluation: 09:20 - Subjective Subjective: clinically same Objective - Vital Signs/Intake and Output Vital Signs (last 24 hours): Temp Pulse Resp BP Pulse Ox 98.9 F 70 20 136/87 98 12/30/16 15:00 12/30/16 15:00 12/30/16 15:00 12/30/16 15:00 12/30/16 15:00 Intake and Output: 12/30/16 12/31/16 18:59 06:59 Intake Total 680 Output Total 1850 Balance -1170 - Medications Medications: Current Medications Acetaminophen (Tylenol 325mg Tab) 650 mg PO Q6 PRN PRN Reason: Pain, Mild (1-3) Amlodipine Besylate (Norvasc) 10 mg PO DAILY [facility] Last Admin: 12/30/16 09:48 Dose: 10 mg Bisoprolol Fumarate/HCTZ (Ziac 10-6.25 Mg) 1 tab PO DAILY [facility] Last Admin: 12/30/16 09:48 Dose: 1 tab Collagenase (Santyl) 0 gm TOP DAILY [facility] Last Admin: 12/30/16 09:51 Dose: Not Given Enoxaparin Sodium (Lovenox) 40 mg SC DAILY [facility] Last Admin: 12/30/16 09:49 Dose: 40 mg Hydralazine HCl (Apresoline) 50 mg PO DAILY [facility] Last Admin: 12/30/16 09:48 Dose: 50 mg Piperacillin Sod/Tazobactam (Sod 3.375 gm/ Sodium Chloride) 100 mls @ 200 mls/ hr IVPB Q8H [facility] Last Admin: 12/30/16 18:35 Dose: 200 mls/hr Losartan Potassium (Cozaar) 100 mg PO DAILY [facility] Last Admin: 12/30/16 09:48 Dose: 100 mg Oxycodone/Acetaminophen (Percocet 5/325 Mg Tab) 1 tab PO Q4H PRN PRN Reason: Pain, moderate (4-7) Stop: 01/01/17 09:48 Last Admin: 12/29/16 14:28 Dose: 1 tab Oxycodone/Acetaminophen (Percocet 5/325 Mg Tab) 2 tab PO Q4H PRN PRN Reason: Pain, severe (8-10) Stop: 01/01/17 09:48 Last Admin: 12/29/16 21:36 Dose: 2 tab Pantoprazole Sodium (Protonix Ec Tab) 40 mg PO DAILY [facility] Last Admin: 12/30/16 09:48 Dose: 40 mg - Labs Labs: 12/27/16 06:37 12/27/16 06:37 PT 12.7 SECONDS (9.7-12.2) H 12/29/16 07:01 INR 1.1 12/29/16 07:01 APTT 34 SECONDS (21-34) 12/29/16 07:01 - Constitutional Appears: Well - Head Exam Head Exam: ATRAUMATIC, NORMAL INSPECTION, NORMOCEPHALIC - Eye Exam Eye Exam: EOMI, Normal appearance, PERRL Pupil Exam: NORMAL ACCOMODATION, PERRL - ENT Exam ENT Exam: Mucous Membranes Moist, Normal Exam - Neck Exam Neck Exam: Full ROM, Normal Inspection. absent: Lymphadenopathy - Respiratory Exam Respiratory Exam: Decreased Breath Sounds - Cardiovascular Exam Cardiovascular Exam: REGULAR RHYTHM, +S1, +S2 - GI/Abdominal Exam GI & Abdominal Exam: Soft, Diminished Bowel Sounds - Rectal Exam Rectal Exam: Deferred Assessment and Plan (1) Diabetic ulcer of ankle Status: Acute (2) Failure of outpatient treatment Status: Acute (3) HTN (hypertension) Status: Acute (4) Non-healing ulcer of ankle Status: Chronic - Assessment and Plan (Free Text) Plan: Status post wound debridement Hemodynamically stable discussed with family Patient resting comfortably Continue Percocet Norvasc Lovenox Cozaar ID on board Wound care
[2016-12-31] MEDS: Piperacillin/Tazobact 3.375 GM in Sodium Chloride 100 ML IVPB SCH ×3 (04:00→19:28)
[2016-12-31 07:28] LABS: BASO % 0.3 % (0.0-2.0); EOS # 0.2 K/uL (0.0-0.7); EOS % 3.3 % (0.0-4.0); HEMATOCRIT 45.2 % (35.0-51.0); LYMPH # 1.2 K/uL (1.0-4.3); LYMPH % 19.8 % (20.0-40.0); MEAN CELL VOLUME 83.6 fL (80.0-94.0); MEAN CORPUSCULAR HEMOGLOBIN 26.9 pg (27.0-31.0); MEAN CORPUSCULAR HGB CONC 32.2 g/dL (33.0-37.0); MEAN PLATELET VOLUME 8.8 fL (7.2-11.7); MONO # 0.9 K/uL (0.0-0.8); MONO % 14.5 % (0.0-10.0); WHITE BLOOD COUNT 6.1 K/uL (4.8-10.8)
[2016-12-31 08:13] LABS: POTASSIUM 3.9 mmol/L (3.6-5.2)
[2016-12-31 08:17] LABS: CALCIUM 8.9 mg/dl (8.6-10.4)
[2016-12-31] MEDS: Collagenase 250 Units/gm Ointment(30 gm) TOP SCH (09:57)
[2016-12-31] MEDS: Bisoprolol-HCTZ 10-6.25 mg Tab PO SCH (10:01)
[2016-12-31] MEDS: Pantoprazole 40 mg EC Tab PO SCH (10:01)
[2016-12-31] MEDS: Enoxaparin 40 mg Syringe SC SCH (10:01)
--- NOTE | 2016-12-31 14:36 | CP.PCM.PN ---
Subjective - Date & Time of Evaluation Date of Evaluation: 12/31/16 Time of Evaluation: 07:40 - Subjective Subjective: clinically same Objective - Vital Signs/Intake and Output Vital Signs (last 24 hours): Temp Pulse Resp BP Pulse Ox 98.2 F 86 23 154/95 H 97 12/31/16 08:00 12/31/16 08:00 12/31/16 08:00 12/31/16 08:00 12/31/16 08:00 Intake and Output: 12/31/16 12/31/16 06:59 18:59 Intake Total 500 Output Total 500 Balance 0 - Medications Medications: Current Medications Acetaminophen (Tylenol 325mg Tab) 650 mg PO Q6 PRN PRN Reason: Pain, Mild (1-3) Amlodipine Besylate (Norvasc) 10 mg PO DAILY [facility] Last Admin: 12/31/16 10:01 Dose: 10 mg Bisoprolol Fumarate/HCTZ (Ziac 10-6.25 Mg) 1 tab PO DAILY [facility] Last Admin: 12/31/16 10:01 Dose: 1 tab Collagenase (Santyl) 0 gm TOP DAILY [facility] Last Admin: 12/31/16 09:57 Dose: Not Given Enoxaparin Sodium (Lovenox) 40 mg SC DAILY [facility] Last Admin: 12/31/16 10:01 Dose: 40 mg Hydralazine HCl (Apresoline) 50 mg PO DAILY [facility] Last Admin: 12/31/16 10:01 Dose: 50 mg Piperacillin Sod/Tazobactam (Sod 3.375 gm/ Sodium Chloride) 100 mls @ 200 mls/ hr IVPB Q8H [facility] Last Admin: 12/31/16 11:07 Dose: 200 mls/hr Losartan Potassium (Cozaar) 100 mg PO DAILY [facility] Last Admin: 12/31/16 10:01 Dose: 100 mg Oxycodone/Acetaminophen (Percocet 5/325 Mg Tab) 1 tab PO Q4H PRN PRN Reason: Pain, moderate (4-7) Stop: 01/01/17 09:48 Last Admin: 12/29/16 14:28 Dose: 1 tab Oxycodone/Acetaminophen (Percocet 5/325 Mg Tab) 2 tab PO Q4H PRN PRN Reason: Pain, severe (8-10) Stop: 01/01/17 09:48 Last Admin: 12/29/16 21:36 Dose: 2 tab Pantoprazole Sodium (Protonix Ec Tab) 40 mg PO DAILY [facility] Last Admin: 12/31/16 10:01 Dose: 40 mg - Labs Labs: 12/31/16 07:16 12/31/16 07:16 PT 12.7 SECONDS (9.7-12.2) H 12/29/16 07:01 INR 1.1 12/29/16 07:01 APTT 34 SECONDS (21-34) 12/29/16 07:01 - Constitutional Appears: Well - Head Exam Head Exam: ATRAUMATIC, NORMAL INSPECTION, NORMOCEPHALIC - Eye Exam Eye Exam: EOMI, Normal appearance, PERRL Pupil Exam: NORMAL ACCOMODATION, PERRL - ENT Exam ENT Exam: Mucous Membranes Moist, Normal Exam - Neck Exam Neck Exam: Full ROM, Normal Inspection. absent: Lymphadenopathy - Respiratory Exam Respiratory Exam: Decreased Breath Sounds - Cardiovascular Exam Cardiovascular Exam: REGULAR RHYTHM, +S1, +S2 - GI/Abdominal Exam GI & Abdominal Exam: Soft, Diminished Bowel Sounds - Rectal Exam Rectal Exam: Deferred Assessment and Plan (1) Diabetic ulcer of ankle Status: Acute (2) Failure of outpatient treatment Status: Acute (3) HTN (hypertension) Status: Acute (4) Non-healing ulcer of ankle Status: Chronic - Assessment and Plan (Free Text) Plan: 2 days S/P wound debridement No acute event overnight Denies any pain Continue same DVT prophylaxis Continue Norvasc and Cozaar Percocet Protonix Wound care ID on board Follow-up with labs
[2016-12-31] MEDS: Oxycodone/Acetaminophen 5/325 mg Tab PO PRN ×2 (14:58→21:54)
--- NOTE | 2016-12-31 16:43 | CP.PCM.PN ---
Subjective - Date & Time of Evaluation Date of Evaluation: 12/31/16 Time of Evaluation: 16:40 - Subjective Subjective: 71 y/o diabetic male patient seen at bedside with attending Dr. Turner this morning 2 days s/p right ankle wound debridement. Patient denies any acute events overnight. Patient denies any pain in the area. Pt seen resting comfortably in bed at time of visit. AAOx3, NAD. Denies f/n/v/c/sob/cp. Denies any other complaints at this time. Objective - Vital Signs/Intake and Output Vital Signs (last 24 hours): Temp Pulse Resp BP Pulse Ox 98.3 F 71 20 155/78 H 96 12/31/16 16:00 12/31/16 16:00 12/31/16 16:00 12/31/16 16:00 12/31/16 16:00 Intake and Output: 12/31/16 12/31/16 06:59 18:59 Intake Total 500 440 Output Total 500 600 Balance 0 -160 - Medications Medications: Current Medications Acetaminophen (Tylenol 325mg Tab) 650 mg PO Q6 PRN PRN Reason: Pain, Mild (1-3) Amlodipine Besylate (Norvasc) 10 mg PO DAILY [facility] Last Admin: 12/31/16 10:01 Dose: 10 mg Bisoprolol Fumarate/HCTZ (Ziac 10-6.25 Mg) 1 tab PO DAILY [facility] Last Admin: 12/31/16 10:01 Dose: 1 tab Collagenase (Santyl) 0 gm TOP DAILY [facility] Last Admin: 12/31/16 09:57 Dose: Not Given Enoxaparin Sodium (Lovenox) 40 mg SC DAILY [facility] Last Admin: 12/31/16 10:01 Dose: 40 mg Hydralazine HCl (Apresoline) 50 mg PO DAILY [facility] Last Admin: 12/31/16 10:01 Dose: 50 mg Piperacillin Sod/Tazobactam (Sod 3.375 gm/ Sodium Chloride) 100 mls @ 200 mls/ hr IVPB Q8H [facility] Last Admin: 12/31/16 11:07 Dose: 200 mls/hr Losartan Potassium (Cozaar) 100 mg PO DAILY [facility] Last Admin: 12/31/16 10:01 Dose: 100 mg Oxycodone/Acetaminophen (Percocet 5/325 Mg Tab) 1 tab PO Q4H PRN PRN Reason: Pain, moderate (4-7) Stop: 01/01/17 09:48 Last Admin: 12/29/16 14:28 Dose: 1 tab Oxycodone/Acetaminophen (Percocet 5/325 Mg Tab) 2 tab PO Q4H PRN PRN Reason: Pain, severe (8-10) Stop: 01/01/17 09:48 Last Admin: 12/31/16 14:58 Dose: 2 tab Pantoprazole Sodium (Protonix Ec Tab) 40 mg PO DAILY [facility] Last Admin: 12/31/16 10:01 Dose: 40 mg - Labs Labs: 12/31/16 07:16 12/31/16 07:16 PT 12.7 SECONDS (9.7-12.2) H 12/29/16 07:01 INR 1.1 12/29/16 07:01 APTT 34 SECONDS (21-34) 12/29/16 07:01 - Constitutional Appears: Well, Non-toxic, No Acute Distress - Extremities Exam Additional comments: Vasc: DP/PT pulses 2/4 B/L, CFT < 3sec x10 digits, skin temp WNL, mild perimalleolar edema noted at lateral right ankle in wound periphery Derm: 5cm x 3cm x 0.8cm ulceration noted to posterolateral aspect of right ankle with granular base, fibrotic border. No tunneling, drainage, no malodor, no fluctuance, no probe to bone, no clinical signs of infection. Neuro: Protective sensation grossly intact B/L Ortho: No tenderness upon palpation of ulceration or ulcer periphery - Neurological Exam Neurological Exam: Alert, Awake, Oriented x3 - Psychiatric Exam Psychiatric exam: Normal Affect, Normal Mood Assessment and Plan - Assessment and Plan (Free Text) Assessment: 71 y/o diabetic male seen at bedside 2 days s/p right ankle wound debridement Plan: Pt S&E at bedside with attending Dr. Turner Chart, labs and vitals reviewed: afebrile, WBC 6.1 X-rays reviewed- no evidence of osteomyelitis, no acute fracture or dislocation intra-operative wound cx: gram negative rods, yeast species c/w IV abx, Dr. Diamond on consult, recommendations appreciated Right ankle cleansed with hydrogen peroxide nursing to apply wound vac at 125mmHG patient stable for d/c to [facility] and will follow up with Dr. Turner there Podiatry will continue to follow while in house
[2017-01-01] MEDS: Piperacillin/Tazobact 3.375 GM in Sodium Chloride 100 ML IVPB SCH ×3 (03:30→18:41)
[2017-01-01 08:17] VITALS: RESP 20
[2017-01-01] MEDS: Pantoprazole 40 mg EC Tab PO SCH (09:32)
[2017-01-01] MEDS: Enoxaparin 40 mg Syringe SC SCH (09:32)
[2017-01-01] MEDS: Bisoprolol-HCTZ 10-6.25 mg Tab PO SCH (09:32)
--- NOTE | 2017-01-01 13:07 | CP.PCM.PN ---
Subjective - Date & Time of Evaluation Date of Evaluation: 01/01/17 Time of Evaluation: 07:40 - Subjective Subjective: clinically same Objective - Vital Signs/Intake and Output Vital Signs (last 24 hours): Temp Pulse Resp BP Pulse Ox 98.3 F 65 20 130/78 100 01/01/17 08:16 01/01/17 08:16 01/01/17 08:16 01/01/17 08:16 01/01/17 08:16 Intake and Output: 01/01/17 01/01/17 06:59 18:59 Intake Total 800 Output Total 550 Balance 250 - Medications Medications: Current Medications Acetaminophen (Tylenol 325mg Tab) 650 mg PO Q6 PRN PRN Reason: Pain, Mild (1-3) Amlodipine Besylate (Norvasc) 10 mg PO DAILY [facility] Last Admin: 01/01/17 09:32 Dose: 10 mg Bisoprolol Fumarate/HCTZ (Ziac 10-6.25 Mg) 1 tab PO DAILY [facility] Last Admin: 01/01/17 09:32 Dose: 1 tab Enoxaparin Sodium (Lovenox) 40 mg SC DAILY [facility] Last Admin: 01/01/17 09:32 Dose: 40 mg Hydralazine HCl (Apresoline) 50 mg PO DAILY [facility] Last Admin: 01/01/17 09:32 Dose: 50 mg Piperacillin Sod/Tazobactam (Sod 3.375 gm/ Sodium Chloride) 100 mls @ 200 mls/ hr IVPB Q8H [facility] Last Admin: 01/01/17 10:39 Dose: 200 mls/hr Losartan Potassium (Cozaar) 100 mg PO DAILY [facility] Last Admin: 01/01/17 09:32 Dose: 100 mg Pantoprazole Sodium (Protonix Ec Tab) 40 mg PO DAILY [facility] Last Admin: 01/01/17 09:32 Dose: 40 mg - Labs Labs: 12/31/16 07:16 12/31/16 07:16 PT 12.7 SECONDS (9.7-12.2) H 12/29/16 07:01 INR 1.1 12/29/16 07:01 APTT 34 SECONDS (21-34) 12/29/16 07:01 - Constitutional Appears: Well - Head Exam Head Exam: ATRAUMATIC, NORMAL INSPECTION, NORMOCEPHALIC - Eye Exam Eye Exam: EOMI, Normal appearance, PERRL Pupil Exam: NORMAL ACCOMODATION, PERRL - ENT Exam ENT Exam: Mucous Membranes Moist, Normal Exam - Neck Exam Neck Exam: Full ROM, Normal Inspection. absent: Lymphadenopathy - Respiratory Exam Respiratory Exam: Decreased Breath Sounds - Cardiovascular Exam Cardiovascular Exam: REGULAR RHYTHM, +S1, +S2 - GI/Abdominal Exam GI & Abdominal Exam: Soft, Diminished Bowel Sounds - Rectal Exam Rectal Exam: Deferred Assessment and Plan (1) Diabetic ulcer of ankle Status: Acute (2) Failure of outpatient treatment Status: Acute (3) HTN (hypertension) Status: Acute (4) Non-healing ulcer of ankle Status: Chronic - Assessment and Plan (Free Text) Plan: Case seen and discussed with staff Patient comfortable Continue Zosyn Lovenox Norvasc Cozaar Wound care Encourage fluid intake Follow-up labs
--- NOTE | 2017-01-01 23:33 | CP.PCM.PN ---
Subjective - Date & Time of Evaluation Date of Evaluation: 01/01/17 Time of Evaluation: 12:05 - Subjective Subjective: 71 year old male patient seen at bedside 3 days s/p right ankle wound debridement. Patient seen out of bed in chair, AAOx3 and NAD. Patient denies any acute events overnight. Patient reports minimal throbbing pain to his right ankle at night due to the WoundVAC. Patient denies N/V/F/D/C/SOB/calf pain. No other pedal complaints at this time. Objective - Vital Signs/Intake and Output Vital Signs (last 24 hours): Temp Pulse Resp BP Pulse Ox 98 F 70 20 141/84 97 01/01/17 16:00 01/01/17 16:00 01/01/17 16:00 01/01/17 16:00 01/01/17 16:00 Intake and Output: 01/01/17 01/02/17 18:59 06:59 Intake Total 450 Output Total 500 Balance -50 - Medications Medications: Current Medications Acetaminophen (Tylenol 325mg Tab) 650 mg PO Q6 PRN PRN Reason: Pain, Mild (1-3) Amlodipine Besylate (Norvasc) 10 mg PO DAILY [facility] Last Admin: 01/01/17 09:32 Dose: 10 mg Bisoprolol Fumarate/HCTZ (Ziac 10-6.25 Mg) 1 tab PO DAILY [facility] Last Admin: 01/01/17 09:32 Dose: 1 tab Enoxaparin Sodium (Lovenox) 40 mg SC DAILY [facility] Last Admin: 01/01/17 09:32 Dose: 40 mg Hydralazine HCl (Apresoline) 50 mg PO DAILY [facility] Last Admin: 01/01/17 09:32 Dose: 50 mg Piperacillin Sod/Tazobactam (Sod 3.375 gm/ Sodium Chloride) 100 mls @ 200 mls/ hr IVPB Q8H [facility] Last Admin: 01/01/17 18:41 Dose: 200 mls/hr Losartan Potassium (Cozaar) 100 mg PO DAILY [facility] Last Admin: 01/01/17 09:32 Dose: 100 mg Pantoprazole Sodium (Protonix Ec Tab) 40 mg PO DAILY [facility] Last Admin: 01/01/17 09:32 Dose: 40 mg - Labs Labs: 12/31/16 07:16 12/31/16 07:16 PT 12.7 SECONDS (9.7-12.2) H 12/29/16 07:01 INR 1.1 12/29/16 07:01 APTT 34 SECONDS (21-34) 12/29/16 07:01 - Constitutional Appears: Well, Non-toxic, No Acute Distress - Extremities Exam Additional comments: RLE focused physical exam: Vasc: DP and PT pulses palpable 2/4. CFT <3 seconds to digits x5. TG cool to cool. Neuro: Gross sensation intact. Derm: WoundVAC appears clean, dry, and intact with no leakage. No open lesions noted. Ortho: No tenderness to palpation to RLE - Neurological Exam Neurological Exam: Alert, Awake, Oriented x3 - Psychiatric Exam Psychiatric exam: Normal Affect, Normal Mood Assessment and Plan - Assessment and Plan (Free Text) Assessment: 71 y/o diabetic male seen at bedside 3 days s/p right ankle wound debridement Plan: Patient seen and evaluated at bedside. Discussed with attending, Dr. Turner. Charts, vitals, labs reviewed = afebrile, WBC WNL @ 6.1 F/U ID recs Continue monitoring WoundVAC, current drainage in canister is <50cc Patient is stable from podiatry standpoint and stable for discharge for HEMALATHA. Patient to follow up with Dr. Turner Podiatry will continue to follow while in house.
[2017-01-02] MEDS: Piperacillin/Tazobact 3.375 GM in Sodium Chloride 100 ML IVPB SCH ×2 (03:17→12:16)
[2017-01-02] MEDS: Pantoprazole 40 mg EC Tab PO SCH (10:15)
[2017-01-02] MEDS: Bisoprolol-HCTZ 10-6.25 mg Tab PO SCH (10:15)
[2017-01-02] MEDS: Enoxaparin 40 mg Syringe SC SCH (10:15)
--- NOTE | 2017-01-02 10:55 | CP.PCM.PN ---
Subjective - Date & Time of Evaluation Date of Evaluation: 01/02/17 Time of Evaluation: 10:55 - Subjective Subjective: 71 year old male patient seen at bedside 4 days s/p right ankle wound debridement. Patient seen resting in bed comfortably, AAOx3 and NAD. Patient denies any acute events overnight. Patient reports continued mild throbbing pain to his right ankle at night due to the WoundVAC. Patient denies N/V/F/D/C/ SOB/calf pain. No other pedal complaints at this time. Objective - Vital Signs/Intake and Output Vital Signs (last 24 hours): Temp Pulse Resp BP Pulse Ox 98.7 F 77 20 142/81 95 01/02/17 08:21 01/02/17 08:21 01/02/17 08:21 01/02/17 08:21 01/02/17 08:21 - Medications Medications: Current Medications Acetaminophen (Tylenol 325mg Tab) 650 mg PO Q6 PRN PRN Reason: Pain, Mild (1-3) Last Admin: 01/02/17 00:09 Dose: 650 mg Amlodipine Besylate (Norvasc) 10 mg PO DAILY [facility] Last Admin: 01/02/17 10:15 Dose: 10 mg Bisoprolol Fumarate/HCTZ (Ziac 10-6.25 Mg) 1 tab PO DAILY [facility] Last Admin: 01/02/17 10:15 Dose: 1 tab Enoxaparin Sodium (Lovenox) 40 mg SC DAILY [facility] Last Admin: 01/02/17 10:15 Dose: 40 mg Hydralazine HCl (Apresoline) 50 mg PO DAILY [facility] Last Admin: 01/02/17 10:15 Dose: 50 mg Piperacillin Sod/Tazobactam (Sod 3.375 gm/ Sodium Chloride) 100 mls @ 200 mls/ hr IVPB Q8H [facility] Last Admin: 01/02/17 03:17 Dose: 200 mls/hr Losartan Potassium (Cozaar) 100 mg PO DAILY [facility] Last Admin: 01/02/17 10:15 Dose: 100 mg Pantoprazole Sodium (Protonix Ec Tab) 40 mg PO DAILY [facility] Last Admin: 01/02/17 10:15 Dose: 40 mg - Labs Labs: 12/31/16 07:16 12/31/16 07:16 PT 12.7 SECONDS (9.7-12.2) H 12/29/16 07:01 INR 1.1 12/29/16 07:01 APTT 34 SECONDS (21-34) 12/29/16 07:01 - Constitutional Appears: Well, Non-toxic, No Acute Distress (v) - Extremities Exam Additional comments: RLE focused physical exam: Vasc: DP and PT pulses palpable 2/4. CFT <3 seconds to digits x5. TG cool to cool. Neuro: Gross sensation intact. Derm: WoundVAC appears clean, dry, and intact with no leakage. No open lesions noted. Ortho: No tenderness to palpation to RLE - Neurological Exam Neurological Exam: Alert, Awake, Oriented x3 - Psychiatric Exam Psychiatric exam: Normal Affect, Normal Mood Assessment and Plan - Assessment and Plan (Free Text) Assessment: 71 y/o diabetic male seen at bedside 4 days s/p right ankle wound debridement Plan: Patient seen and evaluated at bedside. Discussed with attending, Dr. Turner. Charts, vitals, labs reviewed = afebrile, WBC WNL @ 6.1 Cont abx per ID = Zosyn, Cipro Continue monitoring WoundVAC, current drainage in canister is <50cc Patient is stable from podiatry standpoint and stable for discharge for HEMALATHA. Patient to follow up with Dr. Turner Podiatry will continue to follow while in house.
--- NOTE | 2017-01-02 12:28 | CP.PCM.PN ---
Subjective - Date & Time of Evaluation Date of Evaluation: 01/02/17 Time of Evaluation: 08:40 - Subjective Subjective: clinically same Objective - Vital Signs/Intake and Output Vital Signs (last 24 hours): Temp Pulse Resp BP Pulse Ox 98.7 F 77 20 142/81 95 01/02/17 08:21 01/02/17 08:21 01/02/17 08:21 01/02/17 08:21 01/02/17 08:21 - Medications Medications: Current Medications Acetaminophen (Tylenol 325mg Tab) 650 mg PO Q6 PRN PRN Reason: Pain, Mild (1-3) Last Admin: 01/02/17 00:09 Dose: 650 mg Amlodipine Besylate (Norvasc) 10 mg PO DAILY [facility] Last Admin: 01/02/17 10:15 Dose: 10 mg Bisoprolol Fumarate/HCTZ (Ziac 10-6.25 Mg) 1 tab PO DAILY [facility] Last Admin: 01/02/17 10:15 Dose: 1 tab Enoxaparin Sodium (Lovenox) 40 mg SC DAILY [facility] Last Admin: 01/02/17 10:15 Dose: 40 mg Hydralazine HCl (Apresoline) 50 mg PO DAILY [facility] Last Admin: 01/02/17 10:15 Dose: 50 mg Piperacillin Sod/Tazobactam (Sod 3.375 gm/ Sodium Chloride) 100 mls @ 200 mls/ hr IVPB Q8H [facility] Last Admin: 01/02/17 12:16 Dose: 200 mls/hr Losartan Potassium (Cozaar) 100 mg PO DAILY [facility] Last Admin: 01/02/17 10:15 Dose: 100 mg Pantoprazole Sodium (Protonix Ec Tab) 40 mg PO DAILY [facility] Last Admin: 01/02/17 10:15 Dose: 40 mg - Labs Labs: 12/31/16 07:16 12/31/16 07:16 PT 12.7 SECONDS (9.7-12.2) H 12/29/16 07:01 INR 1.1 12/29/16 07:01 APTT 34 SECONDS (21-34) 12/29/16 07:01 - Constitutional Appears: Well - Head Exam Head Exam: ATRAUMATIC, NORMAL INSPECTION, NORMOCEPHALIC - Eye Exam Eye Exam: EOMI, Normal appearance, PERRL Pupil Exam: NORMAL ACCOMODATION, PERRL - ENT Exam ENT Exam: Mucous Membranes Moist, Normal Exam - Neck Exam Neck Exam: Full ROM, Normal Inspection. absent: Lymphadenopathy - Respiratory Exam Respiratory Exam: Decreased Breath Sounds - Cardiovascular Exam Cardiovascular Exam: REGULAR RHYTHM, +S1, +S2. absent: Murmur - GI/Abdominal Exam GI & Abdominal Exam: Soft, Diminished Bowel Sounds - Rectal Exam Rectal Exam: Deferred Assessment and Plan (1) Diabetic ulcer of ankle Status: Acute (2) Failure of outpatient treatment Status: Acute (3) HTN (hypertension) Status: Acute (4) Non-healing ulcer of ankle Status: Chronic - Assessment and Plan (Free Text) Plan: Patient clinically improving No acute event overnight Continue antibiotics Gail Scott Discussed with family Protonix Wound care
--- NOTE | 2017-01-02 13:41 | CP.PCM.PN ---
Subjective - Date & Time of Evaluation Date of Evaluation: 01/02/17 Time of Evaluation: 13:39 - Subjective Subjective: feels comfortale has vacume draining rom his wound s/p surgery bloo sugar controled Objective - Vital Signs/Intake and Output Vital Signs (last 24 hours): Temp Pulse Resp BP Pulse Ox 98.7 F 77 20 142/81 95 01/02/17 08:21 01/02/17 08:21 01/02/17 08:21 01/02/17 08:21 01/02/17 08:21 - Medications Medications: Current Medications Acetaminophen (Tylenol 325mg Tab) 650 mg PO Q6 PRN PRN Reason: Pain, Mild (1-3) Last Admin: 01/02/17 00:09 Dose: 650 mg Amlodipine Besylate (Norvasc) 10 mg PO DAILY [facility] Last Admin: 01/02/17 10:15 Dose: 10 mg Bisoprolol Fumarate/HCTZ (Ziac 10-6.25 Mg) 1 tab PO DAILY [facility] Last Admin: 01/02/17 10:15 Dose: 1 tab Enoxaparin Sodium (Lovenox) 40 mg SC DAILY [facility] Last Admin: 01/02/17 10:15 Dose: 40 mg Hydralazine HCl (Apresoline) 50 mg PO DAILY [facility] Last Admin: 01/02/17 10:15 Dose: 50 mg Piperacillin Sod/Tazobactam Sod (Zosyn 3.375 Gm Iv Premix) 3.375 gm in 50 mls @ 100 mls/hr IVPB Q8H [facility] Losartan Potassium (Cozaar) 100 mg PO DAILY [facility] Last Admin: 01/02/17 10:15 Dose: 100 mg Pantoprazole Sodium (Protonix Ec Tab) 40 mg PO DAILY [facility] Last Admin: 01/02/17 10:15 Dose: 40 mg - Labs Labs: 12/31/16 07:16 12/31/16 07:16 PT 12.7 SECONDS (9.7-12.2) H 12/29/16 07:01 INR 1.1 12/29/16 07:01 APTT 34 SECONDS (21-34) 12/29/16 07:01 - Constitutional Appears: Non-toxic - Head Exam Head Exam: NORMAL INSPECTION - Eye Exam Eye Exam: Normal appearance Pupil Exam: NORMAL ACCOMODATION - ENT Exam ENT Exam: Mucous Membranes Moist - Neck Exam Neck Exam: Full ROM - Respiratory Exam Respiratory Exam: Clear to Ausculation Bilateral - Cardiovascular Exam Cardiovascular Exam: REGULAR RHYTHM - GI/Abdominal Exam GI & Abdominal Exam: Normal Bowel Sounds - Rectal Exam Rectal Exam: NORMAL INSPECTION - Extremities Exam Extremities Exam: Full ROM Additional comments: wound rresing intaCT VACUME IN PLACE - Back Exam Back Exam: NORMAL INSPECTION - Neurological Exam Neurological Exam: Oriented x3 - Psychiatric Exam Psychiatric exam: Normal Affect Assessment and Plan - Assessment and Plan (Free Text) Assessment: S/P SURGERY INFECTED ULCER HEELE PRD DAIBETIC HTN Plan: PER ORDERS AND PER PODIATRY PLAN OF D/C CONT IV ANTIBIOTICS
--- NOTE | 2017-01-02 15:09 | CP.PCM.PN ---
Subjective - Date & Time of Evaluation Date of Evaluation: 01/02/17 Time of Evaluation: 09:00 - Subjective Subjective: wound vac in place rx renewed Objective - Vital Signs/Intake and Output Vital Signs (last 24 hours): Temp Pulse Resp BP Pulse Ox 98.7 F 77 20 142/81 95 01/02/17 08:21 01/02/17 08:21 01/02/17 08:21 01/02/17 08:21 01/02/17 08:21 Intake and Output: 01/02/17 01/02/17 06:59 18:59 Intake Total 340 Output Total 800 Balance -460 - Medications Medications: Current Medications Acetaminophen (Tylenol 325mg Tab) 650 mg PO Q6 PRN PRN Reason: Pain, Mild (1-3) Last Admin: 01/02/17 00:09 Dose: 650 mg Amlodipine Besylate (Norvasc) 10 mg PO DAILY [facility] Last Admin: 01/02/17 10:15 Dose: 10 mg Bisoprolol Fumarate/HCTZ (Ziac 10-6.25 Mg) 1 tab PO DAILY [facility] Last Admin: 01/02/17 10:15 Dose: 1 tab Ciprofloxacin (Cipro) 500 mg PO BID [facility] Enoxaparin Sodium (Lovenox) 40 mg SC DAILY [facility] Last Admin: 01/02/17 10:15 Dose: 40 mg Hydralazine HCl (Apresoline) 50 mg PO DAILY [facility] Last Admin: 01/02/17 10:15 Dose: 50 mg Piperacillin Sod/Tazobactam Sod (Zosyn 3.375 Gm Iv Premix) 3.375 gm in 50 mls @ 100 mls/hr IVPB Q8H [facility] Losartan Potassium (Cozaar) 100 mg PO DAILY [facility] Last Admin: 01/02/17 10:15 Dose: 100 mg Pantoprazole Sodium (Protonix Ec Tab) 40 mg PO DAILY [facility] Last Admin: 01/02/17 10:15 Dose: 40 mg - Labs Labs: 12/31/16 07:16 12/31/16 07:16 PT 12.7 SECONDS (9.7-12.2) H 12/29/16 07:01 INR 1.1 12/29/16 07:01 APTT 34 SECONDS (21-34) 12/29/16 07:01 - Constitutional Appears: Non-toxic, Chronically Ill - Head Exam Head Exam: NORMOCEPHALIC - Eye Exam Eye Exam: absent: Scleral icterus - ENT Exam ENT Exam: Mucous Membranes Dry - Cardiovascular Exam Cardiovascular Exam: REGULAR RHYTHM - GI/Abdominal Exam GI & Abdominal Exam: Distended. absent: Soft - Rectal Exam Rectal Exam: Deferred - Exam Exam: NORMAL INSPECTION Assessment and Plan (1) Failure of outpatient treatment Status: Acute
[2017-01-02] MEDS: Piperacill/Tazo 3.375gm in Dex 3.375 GM/50 ML BAG IVPB SCH (19:24)
[2017-01-03] MEDS: Piperacill/Tazo 3.375gm in Dex 3.375 GM/50 ML BAG IVPB SCH (03:19)
[2017-01-03] MEDS: Pantoprazole 40 mg EC Tab PO SCH (09:19)
[2017-01-03] MEDS: Enoxaparin 40 mg Syringe SC SCH (09:19)
[2017-01-03] MEDS: Bisoprolol-HCTZ 10-6.25 mg Tab PO SCH (09:21)
--- NOTE | 2017-01-03 14:07 | CP.PCM.PN ---
Subjective - Date & Time of Evaluation Date of Evaluation: 01/03/17 Time of Evaluation: 14:06 - Subjective Subjective: 71 year old male patient seen at bedside 5 days s/p right ankle wound debridement. Patient seen resting in bed comfortably, AAOx3 and NAD. Patient denies any acute events overnight. Patient reports continued mild throbbing pain to his right ankle at night due to the WoundVAC. Patient denies N/V/F/D/C/ SOB/calf pain. No other pedal complaints at this time. Objective - Vital Signs/Intake and Output Vital Signs (last 24 hours): Temp Pulse Resp BP Pulse Ox 98 F 65 20 165/109 H 97 01/03/17 08:54 01/03/17 08:54 01/03/17 08:54 01/03/17 08:54 01/03/17 08:54 - Medications Medications: Current Medications Acetaminophen (Tylenol 325mg Tab) 650 mg PO Q6 PRN PRN Reason: Pain, Mild (1-3) Last Admin: 01/03/17 13:42 Dose: 650 mg Amlodipine Besylate (Norvasc) 10 mg PO DAILY [facility] Last Admin: 01/03/17 09:19 Dose: 10 mg Bisoprolol Fumarate/HCTZ (Ziac 10-6.25 Mg) 1 tab PO DAILY [facility] Last Admin: 01/03/17 09:21 Dose: 1 tab Ciprofloxacin (Cipro) 500 mg PO BID [facility] Last Admin: 01/03/17 09:19 Dose: 500 mg Enoxaparin Sodium (Lovenox) 40 mg SC DAILY [facility] Last Admin: 01/03/17 09:19 Dose: 40 mg Hydralazine HCl (Apresoline) 50 mg PO DAILY [facility] Last Admin: 01/03/17 09:19 Dose: 50 mg Piperacillin Sod/Tazobactam Sod (Zosyn 3.375 Gm Iv Premix) 3.375 gm in 50 mls @ 100 mls/hr IVPB Q8H [facility] Last Admin: 01/03/17 03:19 Dose: 100 mls/hr Losartan Potassium (Cozaar) 100 mg PO DAILY [facility] Last Admin: 01/03/17 09:19 Dose: 100 mg Pantoprazole Sodium (Protonix Ec Tab) 40 mg PO DAILY [facility] Last Admin: 01/03/17 09:19 Dose: 40 mg - Labs Labs: 12/31/16 07:16 12/31/16 07:16 PT 12.7 SECONDS (9.7-12.2) H 12/29/16 07:01 INR 1.1 12/29/16 07:01 APTT 34 SECONDS (21-34) 12/29/16 07:01 - Constitutional Appears: Well, Non-toxic, No Acute Distress - Extremities Exam Additional comments: RLE focused physical exam: Vasc: DP and PT pulses palpable 2/4. CFT <3 seconds to digits x5. TG cool to cool. Neuro: Gross sensation intact. Derm: WoundVAC appears clean, dry, and intact with no leakage. No open lesions noted. Ortho: No tenderness to palpation to RLE - Neurological Exam Neurological Exam: Alert, Awake, Oriented x3 - Psychiatric Exam Psychiatric exam: Normal Affect, Normal Mood Assessment and Plan - Assessment and Plan (Free Text) Assessment: 71 y/o diabetic male seen at bedside 5 days s/p right ankle wound debridement Plan: Patient seen and evaluated at bedside. Discussed with attending, Dr. Turner. Charts, vitals, labs reviewed = afebrile Cont abx per ID = Zosyn, Cipro Continue monitoring WoundVAC, current drainage in canister is <50cc Patient is stable from podiatry standpoint and stable for discharge for HEMALATHA. Patient to follow up with Dr. Turner as outpatient Podiatry will continue to follow while in house.
--- NOTE | 2017-01-03 15:51 | CP.PCM.PN ---
Subjective - Date & Time of Evaluation Date of Evaluation: 01/03/17 Time of Evaluation: 07:40 - Subjective Subjective: clinically same Objective - Vital Signs/Intake and Output Vital Signs (last 24 hours): Temp Pulse Resp BP Pulse Ox 98 F 65 20 165/109 H 97 01/03/17 08:54 01/03/17 08:54 01/03/17 08:54 01/03/17 08:54 01/03/17 08:54 Intake and Output: 01/03/17 01/03/17 06:59 18:59 Intake Total 550 Output Total 450 Balance 100 - Medications Medications: Current Medications Acetaminophen (Tylenol 325mg Tab) 650 mg PO Q6 PRN PRN Reason: Pain, Mild (1-3) Last Admin: 01/03/17 13:42 Dose: 650 mg Amlodipine Besylate (Norvasc) 10 mg PO DAILY [facility] Last Admin: 01/03/17 09:19 Dose: 10 mg Bisoprolol Fumarate/HCTZ (Ziac 10-6.25 Mg) 1 tab PO DAILY [facility] Last Admin: 01/03/17 09:21 Dose: 1 tab Ciprofloxacin (Cipro) 500 mg PO BID [facility] Last Admin: 01/03/17 09:19 Dose: 500 mg Enoxaparin Sodium (Lovenox) 40 mg SC DAILY [facility] Last Admin: 01/03/17 09:19 Dose: 40 mg Hydralazine HCl (Apresoline) 50 mg PO DAILY [facility] Last Admin: 01/03/17 09:19 Dose: 50 mg Piperacillin Sod/Tazobactam Sod (Zosyn 3.375 Gm Iv Premix) 3.375 gm in 50 mls @ 100 mls/hr IVPB Q8H [facility] Last Admin: 01/03/17 03:19 Dose: 100 mls/hr Losartan Potassium (Cozaar) 100 mg PO DAILY [facility] Last Admin: 01/03/17 09:19 Dose: 100 mg Pantoprazole Sodium (Protonix Ec Tab) 40 mg PO DAILY [facility] Last Admin: 01/03/17 09:19 Dose: 40 mg - Labs Labs: 12/31/16 07:16 12/31/16 07:16 PT 12.7 SECONDS (9.7-12.2) H 12/29/16 07:01 INR 1.1 12/29/16 07:01 APTT 34 SECONDS (21-34) 12/29/16 07:01 - Constitutional Appears: Well - Head Exam Head Exam: ATRAUMATIC, NORMAL INSPECTION, NORMOCEPHALIC - Eye Exam Eye Exam: EOMI, Normal appearance, PERRL Pupil Exam: NORMAL ACCOMODATION, PERRL - ENT Exam ENT Exam: Mucous Membranes Moist, Normal Exam - Neck Exam Neck Exam: Full ROM, Normal Inspection. absent: Lymphadenopathy - Respiratory Exam Respiratory Exam: Decreased Breath Sounds - Cardiovascular Exam Cardiovascular Exam: REGULAR RHYTHM, +S1, +S2 - GI/Abdominal Exam GI & Abdominal Exam: Soft, Diminished Bowel Sounds - Rectal Exam Rectal Exam: Deferred Assessment and Plan (1) Diabetic ulcer of ankle Status: Acute (2) Failure of outpatient treatment Status: Acute (3) HTN (hypertension) Status: Acute (4) Non-healing ulcer of ankle Status: Chronic - Assessment and Plan (Free Text) Plan: Patient resting in bed comfortably No acute event Complaint of mild pain over the right ankle Continue antibiotics [facility]
[2017-01-04] MEDS: Piperacill/Tazo 3.375gm in Dex 3.375 GM/50 ML BAG IVPB SCH ×3 (04:05→13:12)
[2017-01-04] MEDS: Bisoprolol-HCTZ 10-6.25 mg Tab PO SCH (10:03)
[2017-01-04] MEDS: Pantoprazole 40 mg EC Tab PO SCH (10:03)
[2017-01-04] MEDS: Enoxaparin 40 mg Syringe SC SCH (10:06)
--- NOTE | 2017-01-04 10:20 | CP.PCM.PN ---
Subjective - Date & Time of Evaluation Date of Evaluation: 01/04/17 Time of Evaluation: 10:18 - Subjective Subjective: pt feels beter wound imrovig need the wound vac for 2 mor days Objective - Vital Signs/Intake and Output Vital Signs (last 24 hours): Temp Pulse Resp BP Pulse Ox 98.2 F 63 20 143/83 98 01/04/17 08:10 01/04/17 08:10 01/04/17 08:10 01/04/17 08:10 01/04/17 08:10 Intake and Output: 01/04/17 01/04/17 06:59 18:59 Intake Total 700 Output Total 1851 Balance -1151 - Medications Medications: Current Medications Acetaminophen (Tylenol 325mg Tab) 650 mg PO Q6 PRN PRN Reason: Pain, Mild (1-3) Last Admin: 01/03/17 20:56 Dose: 650 mg Amlodipine Besylate (Norvasc) 10 mg PO DAILY [facility] Last Admin: 01/04/17 10:03 Dose: 10 mg Bisoprolol Fumarate/HCTZ (Ziac 10-6.25 Mg) 1 tab PO DAILY [facility] Last Admin: 01/04/17 10:03 Dose: 1 tab Ciprofloxacin (Cipro) 500 mg PO BID [facility] Last Admin: 01/04/17 10:04 Dose: 500 mg Enoxaparin Sodium (Lovenox) 40 mg SC DAILY [facility] Last Admin: 01/04/17 10:06 Dose: 40 mg Hydralazine HCl (Apresoline) 50 mg PO DAILY [facility] Last Admin: 01/04/17 10:03 Dose: 50 mg Piperacillin Sod/Tazobactam Sod (Zosyn 3.375 Gm Iv Premix) 3.375 gm in 50 mls @ 100 mls/hr IVPB Q8H [facility] Last Admin: 01/04/17 04:05 Dose: 100 mls/hr Losartan Potassium (Cozaar) 100 mg PO DAILY [facility] Last Admin: 01/04/17 10:03 Dose: 100 mg Pantoprazole Sodium (Protonix Ec Tab) 40 mg PO DAILY [facility] Last Admin: 01/04/17 10:03 Dose: 40 mg - Labs Labs: 12/31/16 07:16 12/31/16 07:16 PT 12.7 SECONDS (9.7-12.2) H 12/29/16 07:01 INR 1.1 12/29/16 07:01 APTT 34 SECONDS (21-34) 12/29/16 07:01 - Constitutional Appears: Well - Head Exam Head Exam: NORMAL INSPECTION - Eye Exam Eye Exam: Normal appearance Pupil Exam: NORMAL ACCOMODATION - ENT Exam ENT Exam: Mucous Membranes Moist - Neck Exam Neck Exam: Full ROM - Respiratory Exam Respiratory Exam: NORMAL BREATHING PATTERN - Cardiovascular Exam Cardiovascular Exam: REGULAR RHYTHM - GI/Abdominal Exam GI & Abdominal Exam: Normal Bowel Sounds - Rectal Exam Rectal Exam: NORMAL INSPECTION - Back Exam Back Exam: NORMAL INSPECTION - Neurological Exam Neurological Exam: Alert, Oriented x3 - Psychiatric Exam Psychiatric exam: Normal Mood - Skin Skin Exam: Normal Color Additional comments: heele wound dressing intact Assessment and Plan - Assessment and Plan (Free Text) Assessment: heel ulcer htn contoled pre diabetic Plan: arrange for d/c today f/u in ofice
--- NOTE | 2017-01-04 10:57 | CP.PCM.PN ---
Subjective - Date & Time of Evaluation Date of Evaluation: 01/04/17 Time of Evaluation: 10:54 - Subjective Subjective: 71 year old male patient seen at bedside 6 days s/p right ankle wound debridement. Patient seen resting in bed comfortably, AAOx3 and NAD. Patient denies any acute events overnight. Patient reports continued mild throbbing pain to his right ankle at night due to the WoundVAC. Patient denies N/V/F/D/C/ SOB/calf pain. No other pedal complaints at this time. Objective - Vital Signs/Intake and Output Vital Signs (last 24 hours): Temp Pulse Resp BP Pulse Ox 98.2 F 63 20 143/83 98 01/04/17 08:10 01/04/17 08:10 01/04/17 08:10 01/04/17 08:10 01/04/17 08:10 Intake and Output: 01/04/17 01/04/17 06:59 18:59 Intake Total 700 Output Total 1851 Balance -1151 - Medications Medications: Current Medications Acetaminophen (Tylenol 325mg Tab) 650 mg PO Q6 PRN PRN Reason: Pain, Mild (1-3) Last Admin: 01/03/17 20:56 Dose: 650 mg Amlodipine Besylate (Norvasc) 10 mg PO DAILY [facility] Last Admin: 01/04/17 10:03 Dose: 10 mg Bisoprolol Fumarate/HCTZ (Ziac 10-6.25 Mg) 1 tab PO DAILY [facility] Last Admin: 01/04/17 10:03 Dose: 1 tab Ciprofloxacin (Cipro) 500 mg PO BID [facility] Last Admin: 01/04/17 10:04 Dose: 500 mg Enoxaparin Sodium (Lovenox) 40 mg SC DAILY [facility] Last Admin: 01/04/17 10:06 Dose: 40 mg Hydralazine HCl (Apresoline) 50 mg PO DAILY [facility] Last Admin: 01/04/17 10:03 Dose: 50 mg Piperacillin Sod/Tazobactam Sod (Zosyn 3.375 Gm Iv Premix) 3.375 gm in 50 mls @ 100 mls/hr IVPB Q8H [facility] Last Admin: 01/04/17 04:05 Dose: 100 mls/hr Losartan Potassium (Cozaar) 100 mg PO DAILY [facility] Last Admin: 01/04/17 10:03 Dose: 100 mg Pantoprazole Sodium (Protonix Ec Tab) 40 mg PO DAILY [facility] Last Admin: 01/04/17 10:03 Dose: 40 mg - Labs Labs: 12/31/16 07:16 12/31/16 07:16 PT 12.7 SECONDS (9.7-12.2) H 12/29/16 07:01 INR 1.1 12/29/16 07:01 APTT 34 SECONDS (21-34) 12/29/16 07:01 - Constitutional Appears: Well, Non-toxic, No Acute Distress - Extremities Exam Additional comments: RLE focused physical exam: Vasc: DP and PT pulses palpable 2/4. CFT <3 seconds to digits x5. TG cool to cool. Neuro: Gross sensation intact. Derm: posterolateral right ankle wound site measuring 5cm x 3cm x 2cm with granular base, exposed achilles tendon, no purulence, no malodor, no d rainage, no ascending cellulitis, no probe to bone Ortho: No tenderness to palpation to RLE - Neurological Exam Neurological Exam: Alert, Awake, Oriented x3 - Psychiatric Exam Psychiatric exam: Normal Affect, Normal Mood Assessment and Plan - Assessment and Plan (Free Text) Assessment: 71 y/o diabetic male seen at bedside 6 days s/p right ankle wound debridement Plan: Patient seen and evaluated at bedside. seen at bedside with attending Dr. Turner Charts, vitals, labs reviewed = afebrile Cont abx per ID = Zosyn, Cipro wound cleansed with peroxide, scrubbed with gauze Continue monitoring WoundVAC Patient is stable from podiatry standpoint and stable for discharge for HEMALATHA/ home with wound vac. Patient to follow up with Dr. Turner as outpatient Podiatry will continue to follow while in house.
--- NOTE | 2017-01-04 15:34 | CP.PCM.PN ---
Subjective - Date & Time of Evaluation Date of Evaluation: 01/04/17 Time of Evaluation: 15:34 - Subjective Subjective: Alaert, awake, NAD. Objective - Vital Signs/Intake and Output Vital Signs (last 24 hours): Temp Pulse Resp BP Pulse Ox 98.2 F 63 20 143/83 98 01/04/17 08:10 01/04/17 08:10 01/04/17 08:10 01/04/17 08:10 01/04/17 08:10 Intake and Output: 01/04/17 01/04/17 06:59 18:59 Intake Total 700 Output Total 1851 Balance -1151 - Medications Medications: Current Medications Acetaminophen (Tylenol 325mg Tab) 650 mg PO Q6 PRN PRN Reason: Pain, Mild (1-3) Last Admin: 01/03/17 20:56 Dose: 650 mg Amlodipine Besylate (Norvasc) 10 mg PO DAILY [facility] Last Admin: 01/04/17 10:03 Dose: 10 mg Bisoprolol Fumarate/HCTZ (Ziac 10-6.25 Mg) 1 tab PO DAILY [facility] Last Admin: 01/04/17 10:03 Dose: 1 tab Ciprofloxacin (Cipro) 500 mg PO BID [facility] Last Admin: 01/04/17 10:04 Dose: 500 mg Enoxaparin Sodium (Lovenox) 40 mg SC DAILY [facility] Last Admin: 01/04/17 10:06 Dose: 40 mg Hydralazine HCl (Apresoline) 50 mg PO DAILY [facility] Last Admin: 01/04/17 10:03 Dose: 50 mg Piperacillin Sod/Tazobactam Sod (Zosyn 3.375 Gm Iv Premix) 3.375 gm in 50 mls @ 100 mls/hr IVPB Q8H [facility] Last Admin: 01/04/17 13:12 Dose: 100 mls/hr Losartan Potassium (Cozaar) 100 mg PO DAILY [facility] Last Admin: 01/04/17 10:03 Dose: 100 mg Pantoprazole Sodium (Protonix Ec Tab) 40 mg PO DAILY [facility] Last Admin: 01/04/17 10:03 Dose: 40 mg - Labs Labs: 12/31/16 07:16 12/31/16 07:16 PT 12.7 SECONDS (9.7-12.2) H 12/29/16 07:01 INR 1.1 12/29/16 07:01 APTT 34 SECONDS (21-34) 12/29/16 07:01 Assessment and Plan - Assessment and Plan (Free Text) Assessment: Patient is seen and examined. Alert and orientedx3, denies acute pain or distress. D/W DR Ballard, plan to discharge to [facility] today with abx for 5 more days and to continue with wound vac to the ankle ulcer. To follow up with DR Desouza as outpatient.
--- NOTE | 2017-01-04 17:06 | CP.PCM.PN ---
Subjective - Date & Time of Evaluation Date of Evaluation: 01/04/17 Time of Evaluation: 07:40 - Subjective Subjective: clinically same Objective - Vital Signs/Intake and Output Vital Signs (last 24 hours): Temp Pulse Resp BP Pulse Ox 98.2 F 63 20 143/83 98 01/04/17 08:10 01/04/17 08:10 01/04/17 08:10 01/04/17 08:10 01/04/17 08:10 Intake and Output: 01/04/17 01/04/17 06:59 18:59 Intake Total 700 Output Total 1851 Balance -1151 - Medications Medications: Current Medications Acetaminophen (Tylenol 325mg Tab) 650 mg PO Q6 PRN PRN Reason: Pain, Mild (1-3) Last Admin: 01/03/17 20:56 Dose: 650 mg Amlodipine Besylate (Norvasc) 10 mg PO DAILY [facility] Last Admin: 01/04/17 10:03 Dose: 10 mg Bisoprolol Fumarate/HCTZ (Ziac 10-6.25 Mg) 1 tab PO DAILY [facility] Last Admin: 01/04/17 10:03 Dose: 1 tab Ciprofloxacin (Cipro) 500 mg PO BID [facility] Last Admin: 01/04/17 10:04 Dose: 500 mg Enoxaparin Sodium (Lovenox) 40 mg SC DAILY [facility] Last Admin: 01/04/17 10:06 Dose: 40 mg Hydralazine HCl (Apresoline) 50 mg PO DAILY [facility] Last Admin: 01/04/17 10:03 Dose: 50 mg Piperacillin Sod/Tazobactam Sod (Zosyn 3.375 Gm Iv Premix) 3.375 gm in 50 mls @ 100 mls/hr IVPB Q8H [facility] Last Admin: 01/04/17 13:12 Dose: 100 mls/hr Losartan Potassium (Cozaar) 100 mg PO DAILY [facility] Last Admin: 01/04/17 10:03 Dose: 100 mg Pantoprazole Sodium (Protonix Ec Tab) 40 mg PO DAILY [facility] Last Admin: 01/04/17 10:03 Dose: 40 mg - Labs Labs: 12/31/16 07:16 12/31/16 07:16 PT 12.7 SECONDS (9.7-12.2) H 12/29/16 07:01 INR 1.1 12/29/16 07:01 APTT 34 SECONDS (21-34) 12/29/16 07:01 - Constitutional Appears: Well - Head Exam Head Exam: ATRAUMATIC, NORMAL INSPECTION, NORMOCEPHALIC - Eye Exam Eye Exam: EOMI, Normal appearance, PERRL Pupil Exam: NORMAL ACCOMODATION, PERRL - ENT Exam ENT Exam: Mucous Membranes Moist, Normal Exam - Neck Exam Neck Exam: Full ROM, Normal Inspection. absent: Lymphadenopathy - Respiratory Exam Respiratory Exam: Decreased Breath Sounds - Cardiovascular Exam Cardiovascular Exam: REGULAR RHYTHM, +S1, +S2 - GI/Abdominal Exam GI & Abdominal Exam: Soft, Diminished Bowel Sounds - Rectal Exam Rectal Exam: Deferred Assessment and Plan (1) Diabetic ulcer of ankle Status: Acute (2) Failure of outpatient treatment Status: Acute (3) HTN (hypertension) Status: Acute (4) Non-healing ulcer of ankle Status: Chronic - Assessment and Plan (Free Text) Plan: Patient clinically stable No acute events Plan discharge Discharge to [facility] Continue antibiotics for 5 more days Continue wound care Follow-up with Dr. Turner
[2017-01-04 17:14] VITALS: BP 155/83; PULSE 69; TEMP 99; O2SAT 97
--- NOTE | 2017-01-22 13:56 | DS ---
HISTORY OF PRESENT ILLNESS: The patient came in to the hospital on 12/24/2016 and discharged on 01/04/2017. The patient was sent by Dr. Melvin because he has severe infection of the ankle and a big ulcer. He is 71-year-old, and he was having right ankle ulceration, and he has pain in his ankle. On admission, his temperature was 99.2. His blood pressure 158/95. He was taking amlodipine, , heparin, hydralazine, clindamycin, started on his medications, seen by Dr. Diamond and he started him on piperacillin and he was on losartan and pantoprazole. He was having a local care by Dr. Melvin for his wound. His x-ray with no evidence of osteomyelitis or fracture. He was continued on the IV antibiotics and the local wound care until he was having also applied Bactrim to the wound, but he was discharged to walk-in for 5 days who was elected to continue on IV antibiotics. FINAL DIAGNOSES: Infected ulcer, hypertension, and prediabetic and continue the medications. Nadia Ballard MD
== END 2017-01-04 17:20 | DRG 300 ==
LOC: EDBD 16:58 → C.ER 16:58 → C.9E 17:56 → C.3T 18:29
PROVIDERS: ADMIT Internal Medicine; ATTEND Internal Medicine
PROC: 0HDMXZZ Extraction of Right Foot Skin, External Approach (ICD-10-PCS; principal; 2016-12-29 09:00)
DX: E11.52 Type 2 diabetes mellitus with diabetic peripheral angiopathy with gangrene (principal); E11.40 Type 2 diabetes mellitus with diabetic neuropathy, unspecified; E11.621 Type 2 diabetes mellitus with foot ulcer; L97.519 Non-pressure chronic ulcer of other part of right foot with unspecified severity; I10 Essential (primary) hypertension; Z79.4 Long term (current) use of insulin; E74.39 Other disorders of intestinal carbohydrate absorption

== ENCOUNTER 2017-01-19 09:12 | Inpatient (IN) | payer MEDICARE ==
[2017-01-04 17:30] VITALS: BMI 31.4
[2017-01-19] MEDS ORDERED: Bupivacaine HCl 0.5% PF (10 ml) Inj ONE ×3 (09:34→10:58)
[2017-01-19] MEDS ORDERED: Lidocaine 2% Inj (20ml) ONE (09:34)
[2017-01-19] MEDS ORDERED: Propofol 10 mg/ml Inj (20 ML) ONE (09:50)
[2017-01-19] MEDS ORDERED: Midazolam 2 MG/2 ML VIAL ONE (09:50)
[2017-01-19] MEDS ORDERED: Lactated Ringer's 1,000 ML IV ONE ×2 (10:20→17:00)
[2017-01-19] MEDS ORDERED: Phenylephrine 10 mg/ml Inj ONE (11:07)
--- NOTE | 2017-01-19 11:26 | PCM.SURG1 ---
Surgeon's Initial Post Op Note - Surgeon's Notes Surgeon: Dr. Garcia DPM Department Secretary: Dr. Oro DPM PGY-2, Dr. Mcfarland DPM PGy-1 Type of Anesthesia: IV Sedation, Local Anesthesia Administered By: Dr. Watson Pre-Operative Diagnosis: right ankle gangrene Operative Findings: see dication Post-Operative Diagnosis: same Operation Performed: right ankle wound debridment Specimen/Specimens Removed: right ankle gangrene Estimated Blood Loss: EBL {In ML}: 10 Blood Products Given: N/A Drains Used: No Drains Post-Op Condition: Good Date of Surgery/Procedure: 01/19/17 Time of Surgery/Procedure: 11:26
[2017-01-19] MEDS ORDERED: HYDROmorphone 0.5 mg/0.5 ml ISec IVP PRN (11:37)
[2017-01-19] MEDS ORDERED: Lactated Ringer's 1,000 ML IV SCH ×2 (11:45→12:45)
[2017-01-19 12:17] LABS: CALCIUM 9.1 mg/dl (8.6-10.4); POTASSIUM 5.3 mmol/L (3.6-5.2)
--- NOTE | 2017-01-19 13:06 | CP.PCM.PN ---
Subjective - Date & Time of Evaluation Date of Evaluation: 01/19/17 Time of Evaluation: 12:55 - Subjective Subjective: PGY-[address] Paredes 72 year old male with history of hypertension and chronic lower extremity ulcer was admitted under Dr. Paredes's service after having right ankle wound debridment by podiatry at same day surgery. Patient was seen and examined at PACU. Patient states he has no current complaints. Patient takes 4 hypertensive medications at home. He claims to be compliant with these medications. Patient further denies headache, fever, chills, shortness of breath , chest pain, abdominal pain, nausea, or vomiting. PMD: Dr. Nadia Ballard PMHx: HTN, right ankle ulcer PSHx: ankle skin graft FMHx: denies Social: admits to social alcohol use, denies tobacco or other drugs Meds: Norvasc 10mg, HCTZ 25mg, Cozaar 100mg, Lopressor 50mg BID Objective - Vital Signs/Intake and Output Vital Signs (last 24 hours): Temp Pulse Resp BP Pulse Ox 98.3 F 52 L 14 119/75 100 01/19/17 11:21 01/19/17 12:35 01/19/17 12:35 01/19/17 12:35 01/19/17 12:35 - Medications Medications: Current Medications Acetaminophen (Tylenol 325mg Tab) 650 mg PO Q6 PRN PRN Reason: Fever >100.4 F Amlodipine Besylate (Norvasc) 10 mg PO DAILY [facility] Hydromorphone HCl (Dilaudid) 0.5 mg IVP Q5M PRN PRN Reason: Pain, severe (8-10) Stop: 01/19/17 13:39 Hydromorphone/Sodium Chloride (Dilaudid Glass Laminating Operator) 6 mg IV Q4H PRN; Protocol PRN Reason: Pain, severe (8-10) Lactated Ringer's (Lactated Ringer's) 1,000 mls @ 100 mls/hr IV .Q10H [facility] Losartan Potassium (Cozaar) 100 mg PO DAILY [facility] Metoprolol Tartrate (Lopressor) 50 mg PO BID [facility] - Labs Labs: 01/19/17 12:02 - Constitutional Appears: Well, Non-toxic, No Acute Distress - Head Exam Head Exam: ATRAUMATIC, NORMAL INSPECTION - Eye Exam Eye Exam: Normal appearance - ENT Exam ENT Exam: Mucous Membranes Moist - Neck Exam Neck Exam: Normal Inspection - Respiratory Exam Respiratory Exam: Clear to Ausculation Bilateral, NORMAL BREATHING PATTERN. absent: Respiratory Distress - Cardiovascular Exam Cardiovascular Exam: REGULAR RHYTHM, +S1, +S2. absent: Murmur - GI/Abdominal Exam GI & Abdominal Exam: Soft, Normal Bowel Sounds. absent: Tenderness - Extremities Exam Extremities Exam: absent: Pedal Edema Additional comments: Right ankle dressing clean, dry, and intact. No signs of active drainage. - Neurological Exam Neurological Exam: Alert, Awake, Oriented x3 - Psychiatric Exam Psychiatric exam: Normal Affect, Normal Mood - Skin Skin Exam: Normal Color, Warm Assessment and Plan - Assessment and Plan (Free Text) Assessment: Right ankle gangrene -S/P Right ankle wound debridment POD #0 -Follow podiatry recommendations -Follow ID recommendations for antibiotics -DIRECTOR OF MARKET RESEARCH for pain -LR @100ml/hr -Follow up wound cultures PVD -Vascular surgery consult, Dr. Brown help appreciated -Follow up CT abdomen HTN -Norvasc 10mg po -Cozaar 100mg po -Metoprolol 50mg po bid -Hold HCTZ due to increased creatinine Prophylactic measure -Pepcid -Hold lovenox due to POD#0 -Tylenol -Zofran Will discuss case with Dr. Paredes. All management per Dr. Paredes.
[2017-01-19] MEDS ORDERED: Acetylcysteine 20% Inhal Soln (4ml) PO SCH ×2 (16:00→16:15)
--- NOTE | 2017-01-19 17:17 | CP.PCM.CON ---
History of Present Illness - History of Present Illness History of Present Illness: 72 year old male with history of hypertension and chronic lower extremity ulcer was admitted under Dr. Paredes's service after having right ankle wound debridment by podiatry Patient with recurrent infections to lower extremities- last treated for MSSA with 3 weeks IV zosyn / wound vac Patient was seen and examined at PACU. Patient states he has no current complaints. Patient takes 4 hypertensive medications at home. He claims to be compliant with these medications. Patient further denies headache, fever, chills , shortness of breath, chest pain, abdominal pain, nausea, or vomiting. PMD: Dr. Nadia Ballard PMHx: HTN, right ankle ulcer, CKD PSHx: ankle skin graft FMHx: denies Social: admits to social alcohol use, denies tobacco or other drugs Meds: Norvasc 10mg, HCTZ 25mg, Cozaar 100mg, Lopressor 50mg BID Review of Systems - Review of Systems All systems: reviewed and no additional remarkable complaints except - Constitutional Constitutional: As Per HPI - EENT Eyes: absent: As Per HPI, Blind Spots, Blurred Vision, Change in Vision, Decreased Night Vision, Diplopia, Discharge, Dry Eye, Exophthalmos, Floaters, Irritation, Itchy Eyes, Loss of Peripheral Vision, Pain, Photophobia, Requires Corrective Lenses, Sees Flashes, Spots in Vision, Tunnel Vision, Other Visual Disturbances, Loss of Vision, Other Ears: absent: As Per HPI, Decreased Hearing, Ear Discharge, Ear Pain, Tinnitus, Abnormal Hearing, Disequilibrium, Dizziness, Other Nose/Mouth/Throat: absent: As Per HPI, Epistaxis, Nasal Congestion, Nasal Discharge, Nasal Obstruction, Nasal Trauma, Nose Pain, Post Nasal Drip, Sinus Pain, Sinus Pressure, Bleeding Gums, Change in Voice, Dental Pain, Dry Mouth, Dysphagia, Halitosis, Hoarsness, Lip Swelling, Mouth Lesions, Mouth Pain, Odynophagia, Sore Throat, Throat Swelling, Tongue Swelling, Facial Pain, Neck Pain, Neck Mass, Other - Cardiovascular Cardiovascular: absent: As Per HPI, Acrocyanosis, Chest Pain, Chest Pain at Rest , Chest Pain with Activity, Claudication, Diaphoresis, Dyspnea, Dyspnea on Exertion, Edema, Irregular Heart Rhythm, Pain Radiating to Arm/Neck/Jaw, Leg Edema, Leg Ulcers, Lightheadedness, Orthopnea, Palpitations, Paroxysmal Nocturnal Dyspnea, Pedal Edema, Radiating Pain, Rapid Heart Rate, Slow Heart Rate, Syncope, Other - Respiratory Respiratory: absent: As Per HPI, Cough, Dyspnea, Hemoptysis, Dyspnea on Exertion , Wheezing, Snoring, Stridor, Pain on Inspiration, Chest Congestion, Excessive Mucous Production, Change in Mucous Color, Pain with Coughing, Other - Gastrointestinal Gastrointestinal: absent: As Per HPI, Abdominal Pain, Belching, Bloating, Change in Bowel Habits, Change in Stool Character, Coffee Ground Emesis, Constipation, Cramping, Diarrhea, Dyspepsia, Dysphagia, Early Satiety, Excessive Flatus, Fecal Incontinence, Heartburn, Hematemesis, Hematochezia, Loose Stools, Melena, Nausea, Odynophagia, Temesmus, Vomiting, Other - Genitourinary Genitourinary: absent: As Per HPI, Change in Urinary Stream, Difficulty Urinating, Dysuria, Flank Pain, Hematuria, Pyuria, Nocturia, Urinary Incontinence, Urinary Frequency, Urinary Hesitance, Urinary Urgency, Voiding Freq/Small Amts, Freq UTI, Hx Renal/Bladder Calculi, Hx /Renal Surgery, Bladder Distension, Other - Musculoskeletal Musculoskeletal: As Per HPI - Integumentary Integumentary: As Per HPI, Skin Pain, Wounds - Neurological Neurological: absent: As Per HPI, Abnormal Gait, Abnormal Hearing, Abnormal Movements, Abnormal Speech, Behavioral Changes, Burning Sensations, Confusion, Convulsions, Disequilibrium, Dizziness, Numbness, Focal Weakness, Frequent Falls , Headaches, Lack of Coordination, Loss of Vision, Memory Loss, Paresthesias, Radicular Pain, Restless Legs, Sensory Deficit, Syncope, Tingling, Tremor, Vertigo, Weakness, Other Visual Disturbances, Other - Psychiatric Psychiatric: absent: As Per HPI, Abnormal Sleep Pattern, Anhedonia, Anxiety, Auditory Hallucinations, Behavioral Changes, Change in Appetite, Change in Libido, Confusion, Depression, Difficulty Concentrating, Hallucinations, Homicidal Ideation, Hopelessness, Irritability, Memory Loss, Mood Swings, Panic Attacks, Paranoia, Suicidal Ideation, Visual Hallucinations, Tactile Hallucinations, Other - Endocrine Endocrine: absent: As Per HPI, Change in Body Appearance, Change in Libido, Cold Intolorance, Deepening of Voice, Excessive Sweating, Fatigue, Flushing, Heat Intolorance, Increase in Ring/Shoe/Hat Size, Palpitations, Polydipsia, Polyphagia, Polyuria, Other - Hematologic/Lymphatic Hematologic: absent: As Per HPI, Easy Bleeding, Easy Bruising, Lymphadenopathy, Other Past Patient History - Past Medical History & Family History Past Medical History?: Yes - Past Social History Smoking Status: Former Smoker - CARDIAC Hx Cardiac Disorders: Yes Hx Hypertension: Yes - INTEGUMENTARY Hx Dermatological Problems: Yes Other/Comment: HX: LEFT ANKLE ULCER. HX: RIGHT ANKLE ULCER - SURGICAL HISTORY Hx Surgeries: Yes Other/Comment: HX:removal mole from left forearm 20 years ago. HX: LEFT ANKLE ULCER WITH GRAFT DONE. HX: DEBRIDEMENT RIGHT ANKLE GANGRENE WITH VERSAJET () - ANESTHESIA Hx Anesthesia: Yes Hx Anesthesia Reactions: No Hx Malignant Hyperthermia: No Meds Allergies/Adverse Reactions: Allergies Allergy/AdvReac Type Severity Reaction Status Date / Time No Known Allergies Allergy Verified 01/04/17 17:27 - Medications Medications: Current Medications Acetaminophen (Tylenol 325mg Tab) 650 mg PO Q6 PRN PRN Reason: Fever >100.4 F Acetylcysteine (Acetylcysteine 20%) 3 ml PO Q12H [facility] Stop: 01/21/17 04:16 Amlodipine Besylate (Norvasc) 10 mg PO DAILY [facility] Famotidine (Pepcid) 20 mg PO DAILY [facility] Hydromorphone/Sodium Chloride (Dilaudid Rn Palliative) 6 mg IV Q4H PRN; Protocol PRN Reason: Pain, severe (8-10) Lactated Ringer's (Lactated Ringer's) 1,000 mls @ 150 mls/hr IV .Q6H40M [facility] Losartan Potassium (Cozaar) 100 mg PO DAILY [facility] Metoprolol Tartrate (Lopressor) 50 mg PO BID [facility] Ondansetron HCl (Zofran Inj) 4 mg IVP DAILY@ONCE PRN PRN Reason: Nausea/Vomiting Physical Exam - Constitutional Appears: Non-toxic, Chronically Ill - Head Exam Head Exam: NORMOCEPHALIC - Eye Exam Eye Exam: PERRL. absent: Scleral icterus - ENT Exam ENT Exam: Mucous Membranes Dry, Normal External Ear Exam - Neck Exam Neck exam: Negative for: Lymphadenopathy - Respiratory Exam Respiratory Exam: Decreased Breath Sounds, Rhonchi - Cardiovascular Exam Cardiovascular Exam: REGULAR RHYTHM, +S1, +S2 - GI/Abdominal Exam GI & Abdominal Exam: Diminished Bowel Sounds, Soft. absent: Tenderness - Rectal Exam Rectal Exam: Deferred - Exam Exam: NORMAL INSPECTION - Extremities Exam Extremities exam: Positive for: pedal edema, tenderness, pedal pulses present. Negative for: calf tenderness Additional comments: ulcer to right ankle dressings from OR in place pulses ++ - Back Exam Back exam: absent: CVA tenderness (L), CVA tenderness (R) - Neurological Exam Neurological exam: Alert, CN II-XII Intact, Oriented x3, Reflexes Normal - Psychiatric Exam Psychiatric exam: Normal Mood - Skin Skin Exam: Dry Results - Vital Signs Recent Vital Signs: Last Vital Signs Temp 97.5 F L 01/19/17 17:01 Pulse 65 01/19/17 17:01 Resp 21 01/19/17 17:01 BP 133/88 01/19/17 17:01 Pulse Ox 99 01/19/17 17:01 - Labs Result Diagrams: 01/19/17 12:02 Labs: Laboratory Results - last 24 hr 01/19/17 01/19/17 11:54 12:02 Sodium 136 Potassium 5.3 H Chloride 101 Carbon Dioxide 24 Anion Gap 16 BUN 27 H Creatinine 1.9 H Est GFR ( Amer) 42 Est GFR (Non-Af Amer) 35 POC Glucose (mg/dL) 97 Random Glucose 91 Calcium 9.1 Assessment & Plan (1) Failure of outpatient treatment Status: Acute (2) HTN (hypertension) Status: Acute (3) Non-healing ulcer of ankle Status: Chronic - Assessment and Plan (Free Text) Assessment: for vascular re-eval await cultures cont iv antibbiotics
[2017-01-19] MEDS: Cefepime IV 1 gm in Dextrose 1 GM/50 ML BAG IVPB SCH (18:30)
[2017-01-19] MEDS: Lactated Ringer's 1,000 ML IV SCH (22:38)
--- NOTE | 2017-01-20 00:23 | OP ---
PROCEDURE DATE: 01/19/2017 PREOPERATIVE DIAGNOSIS: Right ankle gangrene. POSTOPERATIVE DIAGNOSIS: Right ankle gangrene. PROCEDURE: Right ankle gangrene debridement with Versajet. SURGEON: Jim Melvin DPM. BILLING REP: Melisa Oro DPM, PGY-2 and Esme Mcfarland DPM, PGY-1. TYPE OF ANESTHESIA: IV sedation with local. ANESTHESIA ADMINISTERED BY: Dr. Watson. DESCRIPTION OF PROCEDURE: The patient is a 72-year-old male with the above diagnosis. The patient has exhausted all conservative treatment at this time and now requires surgical intervention. The patient signed the consent after careful explanation of risks, benefits, complications and alternatives for the surgical procedure. No guarantees were given or implied. NPO status was confirmed prior to taking the patient to the OR. PREPARATION: The patient was brought into the operating room and placed on the operating room table in a lateral decubitus position. A time-out was performed for identification of the correct patient and procedure. After induction of IV sedation, the patient received a total of 20 mL of 1:1 mixture of 0.5% Marcaine plain and 2% lidocaine plain in a local block fashion to the right ankle. Lower extremities were prepped and draped in a normal sterile manner and the procedure began. PROCEDURE: Attention was directed to the lateral aspect of the right ankle where an ulceration of is noted that measures approximately 4 cm x 0.2 cm with a granular base and a gangrenous periwound with small islands of gangrene with an ulcer. A wound culture was obtained and sent for culture and sensitivity. Utilizing a Versajet and power levels 8 and 10, the base of the ulcer was non excisionally debrided of all gangrenous and viable tissue until healthy leading granular tissue appeared at the site. Peroneal tendon and Achilles tendon was also exposed. Then using Metzenbaum dissecting scissors and a pickup, any loose tissue was excisionally debrided. The surgical site was then irrigated with copious amounts of peroxide. All bleeders were cauterized using electrocautery. The surgical site was then dressed with Xeroform sterile gauze, ABD and Kerlix. The wound now measured approximately 11 x 7 x 0.3 cm. POSTOPERATIVE CONDITION: The patient tolerated the anesthesia and procedure well and was escorted to recovery room with vital signs stable and neurovascular status intact to the right lower extremity. Podiatry will continue to follow the patient in house and the patient will follow up with Dr. Melvin upon discharge. Melisa Oro DPM [facility]
[2017-01-20] MEDS: Acetylcysteine 20% Inhal Soln (4ml) PO SCH ×3 (00:35→22:58)
[2017-01-20] MEDS: Cefepime IV 1 gm in Dextrose 1 GM/50 ML BAG IVPB SCH ×2 (05:11→18:01)
[2017-01-20] MEDS: Lactated Ringer's 1,000 ML IV SCH ×4 (05:12→22:10)
[2017-01-20 07:26] LABS: BASO % 0.3 % (0.0-2.0); EOS # 0.1 K/uL (0.0-0.7); EOS % 2.3 % (0.0-4.0); HEMATOCRIT 39.6 % (35.0-51.0); LYMPH # 1.7 K/uL (1.0-4.3); LYMPH % 27.8 % (20.0-40.0); MEAN CORPUSCULAR HEMOGLOBIN 27.1 pg (27.0-31.0); MEAN CORPUSCULAR HGB CONC 32.6 g/dL (33.0-37.0); MEAN PLATELET VOLUME 8.3 fL (7.2-11.7); MONO # 0.7 K/uL (0.0-0.8); MONO % 12.1 % (0.0-10.0); NRBC % 0.1 % (0.0-2.0); RED CELL DISTRIBUTION WIDTH 13.6 % (11.5-14.5)
[2017-01-20 08:24] LABS: ALB/GLOB RATIO 0.9 (1.0-2.1); BILIRUBIN,TOTAL 0.7 mg/dL (0.2-1.3); CALCIUM 9.1 mg/dl (8.6-10.4); POTASSIUM 4.4 mmol/L (3.6-5.2); TOTAL PROTEIN 7.6 g/dL (6.3-8.3)
--- NOTE | 2017-01-20 10:22 | CP.PCM.PN ---
Subjective - Date & Time of Evaluation Date of Evaluation: 01/20/17 Time of Evaluation: 07:15 - Subjective Subjective: PGY-[address] Paredes Patient seen and examined at bedside this morning. He was stating that he had extreme pain all night in his leg and was only given Tylenol. Per nursing after the OR yesterday a CURB ATTENDANT pump was ordered to control the pain but the patient refused. Patient denies of any F/N/V/C/SOB/CP today. He is tolerating his diet and has no other complaints. Objective - Vital Signs/Intake and Output Vital Signs (last 24 hours): Temp Pulse Resp BP Pulse Ox 97.5 F L 85 20 127/85 100 01/20/17 07:37 01/20/17 09:16 01/20/17 07:37 01/20/17 09:16 01/20/17 07:37 Intake and Output: 01/20/17 01/20/17 06:59 18:59 Output Total 800 Balance -800 - Medications Medications: Current Medications Acetaminophen (Tylenol 325mg Tab) 650 mg PO Q6 PRN PRN Reason: Fever >100.4 F Last Admin: 01/20/17 02:18 Dose: 650 mg Acetylcysteine (Acetylcysteine 20%) 6 ml PO Q12H [facility] Stop: 01/21/17 11:46 Last Admin: 01/20/17 00:35 Dose: 6 ml Amlodipine Besylate (Norvasc) 10 mg PO DAILY [facility] Last Admin: 01/20/17 09:14 Dose: 10 mg Famotidine (Pepcid) 20 mg PO DAILY [facility] Last Admin: 01/20/17 09:14 Dose: 20 mg Heparin Sodium (Porcine) (Heparin) 5,000 units SC Q12 [facility] Last Admin: 01/20/17 09:14 Dose: 5,000 units Hydromorphone/Sodium Chloride (Dilaudid Records Management Engineer) 6 mg IV Q4H PRN; Protocol PRN Reason: Pain, severe (8-10) Lactated Ringer's (Lactated Ringer's) 1,000 mls @ 150 mls/hr IV .Q6H40M [facility] Last Admin: 01/20/17 05:12 Dose: 150 mls/hr Cefepime HCl (Maxipime Iv 1 Gm Premix) 1 gm in 50 mls @ 100 mls/hr IVPB Q12H [facility] Last Admin: 01/20/17 05:11 Dose: 100 mls/hr Clindamycin Phosphate 600 mg/ (Sodium Chloride) 54 mls @ 100 mls/hr IVPB Q8H [facility] Last Admin: 01/20/17 02:16 Dose: 100 mls/hr Losartan Potassium (Cozaar) 100 mg PO DAILY [facility] Last Admin: 01/20/17 09:14 Dose: 100 mg Metoprolol Tartrate (Lopressor) 50 mg PO BID [facility] Last Admin: 01/20/17 09:14 Dose: 50 mg Ondansetron HCl (Zofran Inj) 4 mg IVP DAILY@ONCE PRN PRN Reason: Nausea/Vomiting - Labs Labs: 01/20/17 06:51 01/20/17 06:51 - Constitutional Appears: Non-toxic, No Acute Distress - Head Exam Head Exam: ATRAUMATIC, NORMAL INSPECTION - Eye Exam Eye Exam: EOMI, Normal appearance, PERRL Pupil Exam: NORMAL ACCOMODATION - ENT Exam ENT Exam: Mucous Membranes Moist - Respiratory Exam Respiratory Exam: Clear to Ausculation Bilateral, NORMAL BREATHING PATTERN. absent: Respiratory Distress - Cardiovascular Exam Cardiovascular Exam: REGULAR RHYTHM, +S1, +S2 - GI/Abdominal Exam GI & Abdominal Exam: Soft, Normal Bowel Sounds. absent: Distended, Firm, Guarding, Tenderness - Extremities Exam Additional comments: Dressing needs to be changed. Pulses palpable, able to move ext, sentation in tact. - Back Exam Back Exam: NORMAL INSPECTION. absent: CVA tenderness (L), CVA tenderness (R), paraspinal tenderness - Neurological Exam Neurological Exam: Alert, Awake, CN II-XII Intact, Normal Gait, Oriented x3 - Psychiatric Exam Psychiatric exam: Normal Affect, Normal Mood - Skin Skin Exam: Dry, Intact, Normal Color, Warm Assessment and Plan - Assessment and Plan (Free Text) Assessment: 72 y/o male with past medical history of hypertension s/p wound debridement on 01/19 secondary to right ankle gangrene. Plan: Right ankle gangrene -S/P Right ankle wound debridement POD #1 -Dr. Diamond ID on board -> Cefepime 1gm IVPB Q12 -Dr. Garcia Podiatry: Follow podiatry recommendations -Follow ID recommendations for antibiotics -CURB ATTENDANT for pain -LR @100ml/hr -Follow up wound cultures -f/u am labs PVD -Vascular surgery consult, Dr. Brown help appreciated -Follow up CT abdomen HTN -Norvasc 10mg po -Cozaar 100mg po -Metoprolol 50mg po bid -Hold HCTZ due to increased creatinine (Cr decreased from 1.9 to 1.5) -f/u am labs Prophylactic measure -Pepcid -Heparin 5000 U SC Q12 -Tylenol -Zofran All management per Dr. Paredes.
--- NOTE | 2017-01-20 12:08 | CP.PCM.PN ---
Subjective - Date & Time of Evaluation Date of Evaluation: 01/20/17 Time of Evaluation: 11:00 - Subjective Subjective: 72 y/o male seen at bedside this morning with attending Dr. Turner 1 day s/ p wound debridement secondary to right ankle gangrene. Patient appears to be resting comfortably in his bed. Patient appears in NAD and is AAOx3. Patient states that he has pain in his right ankle and was given Tylenol for the pain. Patient states that a STORAGE RECEIPT POSTER pump was not placed yesterday. Patient agrees that he was given the option to place the pump or take Tylenol, patient chose to take the medication instead of the pump. Patient denies of any acute overnight events. Patient denies of any other pedal complains. Patient denies of any F/N/V /C/SOB/CP today. Objective - Vital Signs/Intake and Output Vital Signs (last 24 hours): Temp Pulse Resp BP Pulse Ox 97.5 F L 85 20 127/85 100 01/20/17 07:37 01/20/17 09:16 01/20/17 07:37 01/20/17 09:16 01/20/17 07:37 Intake and Output: 01/20/17 01/20/17 06:59 18:59 Output Total 800 Balance -800 - Medications Medications: Current Medications Acetaminophen (Tylenol 325mg Tab) 650 mg PO Q6 PRN PRN Reason: Fever >100.4 F Last Admin: 01/20/17 02:18 Dose: 650 mg Acetylcysteine (Acetylcysteine 20%) 6 ml PO Q12H [facility] Stop: 01/21/17 11:46 Last Admin: 01/20/17 00:35 Dose: 6 ml Amlodipine Besylate (Norvasc) 10 mg PO DAILY [facility] Last Admin: 01/20/17 09:14 Dose: 10 mg Famotidine (Pepcid) 20 mg PO DAILY [facility] Last Admin: 01/20/17 09:14 Dose: 20 mg Heparin Sodium (Porcine) (Heparin) 5,000 units SC Q12 [facility] Last Admin: 01/20/17 09:14 Dose: 5,000 units Hydromorphone/Sodium Chloride (Dilaudid Metal Neutralizer) 6 mg IV Q4H PRN; Protocol PRN Reason: Pain, severe (8-10) Last Admin: 01/20/17 11:10 Dose: 6 mg Lactated Ringer's (Lactated Ringer's) 1,000 mls @ 150 mls/hr IV .Q6H40M [facility] Last Admin: 01/20/17 11:28 Dose: Not Given Cefepime HCl (Maxipime Iv 1 Gm Premix) 1 gm in 50 mls @ 100 mls/hr IVPB Q12H [facility] Last Admin: 01/20/17 05:11 Dose: 100 mls/hr Clindamycin Phosphate 600 mg/ (Sodium Chloride) 54 mls @ 100 mls/hr IVPB Q8H [facility] Last Admin: 01/20/17 11:31 Dose: 100 mls/hr Losartan Potassium (Cozaar) 100 mg PO DAILY [facility] Last Admin: 01/20/17 09:14 Dose: 100 mg Metoprolol Tartrate (Lopressor) 50 mg PO BID [facility] Last Admin: 01/20/17 09:14 Dose: 50 mg Ondansetron HCl (Zofran Inj) 4 mg IVP DAILY@ONCE PRN PRN Reason: Nausea/Vomiting - Labs Labs: 01/20/17 06:51 01/20/17 06:51 - Constitutional Appears: Well, Non-toxic, No Acute Distress - Extremities Exam Additional comments: RLE focused physical exam: VASC: DP and PT pulses are palpable 2/4; Temperature gradient warm to cool from proximal to distal, INTERNATIONAL CONTROLLER <3 seconds to all digits. No edema noted DERM: posterolateral right ankle wound measures approximately 6.5 cm x 4.5 cm x 0.3 cm with granular base, Achilles tendon as well as the peroneal tendons exposed posterior-lateral and laterally respectively, no purulence, no malodor, no active drainage, no tunneling, no undermining, no ascending cellulitis NEURO: Protective sensation is grossly intact ORTHO: Tenderness noted to palpation surrounding wound - Neurological Exam Neurological Exam: Alert, Awake, Oriented x3 - Psychiatric Exam Psychiatric exam: Normal Affect, Normal Mood Assessment and Plan - Assessment and Plan (Free Text) Assessment: 72 y/o male seen at bedside 1 day s/p wound debridement secondary to right ankle gangrene. Plan: Patient seen and evaluated with attending Dr. Turner Charts, labs and vitals reviewed (afebrile; WBC @ 6.0) Dressing changed with copious amount of H2O2, Saline, wet to dry 4x4, ABD, Kerlix Patient tolerated the dressing change well without any pain or incident Operative cultures - pending Vascular team consulted - CT angio pending, Dr. Brown will follow the patient as per Dr. Turner's request Patient to remain on IV abx as per ID Patient to remain in hospital for further treatment of the open wound Podiatry will perform daily dressing changes and will continue to follow patient while in house
[2017-01-20] MEDS ORDERED: Iodixanol 320 mg/ml 150 ml Bottle IV ONE (13:59)
--- NOTE | 2017-01-20 15:42 | CT ---
PROCEDURE: CT Angiography Abdomen, Pelvis and Lower Extremity with Contrast HISTORY: PVD COMPARISON: None. TECHNIQUE: Technique: CT angiography of the abdomen, pelvis and bilateral lower extremities performed in the arterial phase of enhancement. Coronal and sagittal reformats, and well as rotating MIP images of the vessels generated at the workstation. Intravenous contrast dose: 2801.98 Radiation dose: Total exam DLP = 150 milliliters Visipaque 320 mGy-cm. This CT exam was performed using one or more of the following dose reduction techniques: Automated exposure control, adjustment of the mA and/or kV according to patient size, and/or use of iterative reconstruction technique. FINDINGS: CT ANGIOGRAPHY: ABDOMINAL AORTA:: Unremarkable MAJOR AORTIC BRANCHES: Celiac [place]: Unremarkable. Superior mesenteric artery: Unremarkable. Inferior mesenteric artery: Unremarkable. Renal arteries: Unremarkable. PELVIC ARTERIES: Right Common Iliac: Unremarkable. Right External Iliac: Unremarkable. Right Internal Iliac: Unremarkable. Left Common Iliac: Unremarkable. Left External Iliac: Unremarkable. Left Internal Iliac: Unremarkable. RIGHT LOWER EXTREMITY ARTERIES: Right Common Femoral: Measures 10 millimeters. Right Superficial Femoral: Unremarkable. Right Profunda Femoris: Unremarkable. Right Popliteal:Measures 9 millimeters per Right Anterior Tibial: Moderate calcific plaque throughout the anterior tibial artery. The anterior tibial artery is believed to be patent. Right Tibioperoneal Trunk: Unremarkable. Right Posterior Tibial: Unremarkable. Right Peroneal: Unremarkable. Right dorsalis pedis : Unremarkable. LEFT LOWER EXTREMITY ARTERIES: Left Common Femoral: Common femoral artery measures 13 millimeters. Left Superficial Femoral: Unremarkable. Left Profunda Femoris: Unremarkable. Left Popliteal: Unremarkable. Left Anterior Tibial: Patent for approximately 2 centimeters then occludes. Left Tibioperoneal Trunk: Unremarkable. Left Posterior Tibial: Mild plaque throughout but patent. Left Peroneal: Unremarkable. Left Dorsalis pedis: Unremarkable. NON-ANGIOGRAPHIC ASPECT OF THE EXAM: LOWER THORAX: Incompletely imaged lower lungs. LIVER: Incompletely imaged liver. GALLBLADDER AND BILE DUCTS: Unremarkable. PANCREAS: Unremarkable. No gross lesion or ductal dilatation. SPLEEN: Unremarkable. ADRENALS: Unremarkable. No mass. KIDNEYS AND URETERS: Multiple hypodense lesions throughout the left kidneys consistent with cysts. Others are too small to characterize. Right kidney is unremarkable STOMACH AND BOWEL: Incompletely imaged large bowel. Visualized small bowel and segments of large bowel are unremarkable. APPENDIX: Normal appendix. PERITONEUM: Unremarkable. No free fluid. No free air. LYMPH NODES: Unremarkable. No enlarged lymph nodes. BLADDER: Unremarkable. REPRODUCTIVE: Unremarkable. BONES: No acute fracture. OTHER FINDINGS: None. IMPRESSION: CT abdomen and pelvis: Essentially unremarkable CT angiogram of the abdomen pelvis. Left lower extremity CT angiogram: 1. Left common femoral artery measures 13 millimeters. Otherwise common femoral artery superficial femoral artery and popliteal artery normal. 2. Left runoff shows occluded anterior tibial artery beginning approximately 2 centimeter from its origin. Peroneal and posterior tibial artery are unremarkable. Right lower extremity CT angiogram: 1. Common femoral artery measures 10 millimeter. Otherwise, the common femoral artery is unremarkable. The profunda femoral artery, superficial femoral artery and popliteal artery are unremarkable. 2. There is moderate plaque throughout the anterior tibial artery which is believed to be patent. The peroneal and posterior tibial artery are unremarkable.
--- NOTE | 2017-01-20 17:38 | CP.PCM.PN ---
Subjective - Date & Time of Evaluation Date of Evaluation: 01/20/17 Time of Evaluation: 09:00 - Subjective Subjective: afeb on clinda/ cefepime had 3 weeks rx with cipro/ zosyn with vac in place vascular eval was done as well Objective - Vital Signs/Intake and Output Vital Signs (last 24 hours): Temp Pulse Resp BP Pulse Ox 98.4 F 72 18 157/85 H 97 01/20/17 15:10 01/20/17 15:10 01/20/17 15:10 01/20/17 15:10 01/20/17 15:10 Intake and Output: 01/20/17 01/20/17 06:59 18:59 Intake Total 350 Output Total 800 350 Balance -800 0 - Medications Medications: Current Medications Acetaminophen (Tylenol 325mg Tab) 650 mg PO Q6 PRN PRN Reason: Fever >100.4 F Last Admin: 01/20/17 02:18 Dose: 650 mg Acetylcysteine (Acetylcysteine 20%) 6 ml PO Q12H [facility] Stop: 01/21/17 11:46 Last Admin: 01/20/17 12:41 Dose: 6 ml Amlodipine Besylate (Norvasc) 10 mg PO DAILY [facility] Last Admin: 01/20/17 09:14 Dose: 10 mg Famotidine (Pepcid) 20 mg PO DAILY [facility] Last Admin: 01/20/17 09:14 Dose: 20 mg Heparin Sodium (Porcine) (Heparin) 5,000 units SC Q12 [facility] Last Admin: 01/20/17 09:14 Dose: 5,000 units Hydromorphone/Sodium Chloride (Dilaudid [facility]) 6 mg IV Q4H PRN; Protocol PRN Reason: Pain, severe (8-10) Last Admin: 01/20/17 11:10 Dose: 6 mg Lactated Ringer's (Lactated Ringer's) 1,000 mls @ 150 mls/hr IV .Q6H40M [facility] Last Admin: 01/20/17 11:28 Dose: Not Given Cefepime HCl (Maxipime Iv 1 Gm Premix) 1 gm in 50 mls @ 100 mls/hr IVPB Q12H [facility] Last Admin: 01/20/17 05:11 Dose: 100 mls/hr Clindamycin Phosphate 600 mg/ (Sodium Chloride) 54 mls @ 100 mls/hr IVPB Q8H [facility] Last Admin: 01/20/17 11:31 Dose: 100 mls/hr Losartan Potassium (Cozaar) 100 mg PO DAILY [facility] Last Admin: 01/20/17 09:14 Dose: 100 mg Metoprolol Tartrate (Lopressor) 50 mg PO BID [facility] Last Admin: 01/20/17 09:14 Dose: 50 mg Ondansetron HCl (Zofran Inj) 4 mg IVP DAILY@ONCE PRN PRN Reason: Nausea/Vomiting - Labs Labs: 01/20/17 06:51 01/20/17 06:51 - Constitutional Appears: Non-toxic - Head Exam Head Exam: NORMAL INSPECTION - Eye Exam Eye Exam: PERRL - ENT Exam ENT Exam: Mucous Membranes Dry - Neck Exam Neck Exam: absent: Lymphadenopathy - Respiratory Exam Respiratory Exam: Decreased Breath Sounds - Cardiovascular Exam Cardiovascular Exam: REGULAR RHYTHM - GI/Abdominal Exam GI & Abdominal Exam: Distended, Soft - Rectal Exam Rectal Exam: Deferred - Exam Exam: NORMAL INSPECTION - Extremities Exam Extremities Exam: Pedal Edema - Back Exam Back Exam: absent: CVA tenderness (L), CVA tenderness (R) Assessment and Plan (1) Failure of outpatient treatment Status: Acute (2) HTN (hypertension) Status: Acute (3) Non-healing ulcer of ankle Status: Chronic
--- NOTE | 2017-01-20 18:58 | CP.PCM.CON ---
History of Present Illness - History of Present Illness History of Present Illness: Vascular Surgery Consult note- Dr. Brown 72F hx HTN, CKD, chronic LE ulcer is s/p debridment by podiatry today. Pt was evaluated in PACU post op. Pt has no acute complaints at this time. Vascular surgery was consulted for evaluation of peripheral perfusion of the LE. PMH: HTN, R ankle ulcer, CKD PSH: Skin Graft ALL: NKDA SocialHx: Denies tobacco/ illicit drug use; social ETOH Review of Systems - Review of Systems All systems: reviewed and no additional remarkable complaints except Past Patient History - Past Medical History & Family History Past Medical History?: Yes - Past Social History Smoking Status: Former Smoker - CARDIAC Hx Cardiac Disorders: Yes Hx Hypertension: Yes - PULMONARY Hx Respiratory Disorders: No - NEUROLOGICAL Hx Neurological Disorder: No - HEENT Hx HEENT Problems: No - RENAL Hx Chronic Kidney Disease: No - ENDOCRINE/METABOLIC Hx Endocrine Disorders: No - HEMATOLOGICAL/ONCOLOGICAL Hx Blood Transfusions: No - INTEGUMENTARY Hx Dermatological Problems: Yes Other/Comment: HX: LEFT ANKLE ULCER. HX: RIGHT ANKLE ULCER - MUSCULOSKELETAL/RHEUMATOLOGICAL Hx Falls: No - GASTROINTESTINAL Hx Gastrointestinal Disorders: No - GENITOURINARY/GYNECOLOGICAL Hx Genitourinary Disorders: No - PSYCHIATRIC Hx Substance Use: No - SURGICAL HISTORY Hx Surgeries: Yes Other/Comment: HX:removal mole from left forearm 20 years ago. HX: LEFT ANKLE ULCER WITH GRAFT DONE. HX: DEBRIDEMENT RIGHT ANKLE GANGRENE WITH VERSAJET () - ANESTHESIA Hx Anesthesia: Yes Hx Anesthesia Reactions: No Hx Malignant Hyperthermia: No Has any member of the family had a problem w/ anesthesia?: No Meds Allergies/Adverse Reactions: Allergies Allergy/AdvReac Type Severity Reaction Status Date / Time No Known Allergies Allergy Verified 01/04/17 17:27 - Medications Medications: Current Medications Acetaminophen (Tylenol 325mg Tab) 650 mg PO Q6 PRN PRN Reason: Fever >100.4 F Last Admin: 01/20/17 02:18 Dose: 650 mg Acetylcysteine (Acetylcysteine 20%) 6 ml PO Q12H [facility] Stop: 01/21/17 11:46 Last Admin: 01/20/17 12:41 Dose: 6 ml Amlodipine Besylate (Norvasc) 10 mg PO DAILY [facility] Last Admin: 01/20/17 09:14 Dose: 10 mg Famotidine (Pepcid) 20 mg PO DAILY [facility] Last Admin: 01/20/17 09:14 Dose: 20 mg Heparin Sodium (Porcine) (Heparin) 5,000 units SC Q12 [facility] Last Admin: 01/20/17 09:14 Dose: 5,000 units Hydromorphone/Sodium Chloride (Dilaudid Pressing Department Supervisor) 6 mg IV Q4H PRN; Protocol PRN Reason: Pain, severe (8-10) Last Admin: 01/20/17 11:10 Dose: 6 mg Lactated Ringer's (Lactated Ringer's) 1,000 mls @ 150 mls/hr IV .Q6H40M [facility] Last Admin: 01/20/17 18:05 Dose: Not Given Cefepime HCl (Maxipime Iv 1 Gm Premix) 1 gm in 50 mls @ 100 mls/hr IVPB Q12H [facility] Last Admin: 01/20/17 18:01 Dose: 100 mls/hr Clindamycin Phosphate 600 mg/ (Sodium Chloride) 54 mls @ 100 mls/hr IVPB Q8H [facility] Last Admin: 01/20/17 18:01 Dose: 100 mls/hr Losartan Potassium (Cozaar) 100 mg PO DAILY [facility] Last Admin: 01/20/17 09:14 Dose: 100 mg Metoprolol Tartrate (Lopressor) 50 mg PO BID [facility] Last Admin: 01/20/17 18:02 Dose: 50 mg Ondansetron HCl (Zofran Inj) 4 mg IVP DAILY@ONCE PRN PRN Reason: Nausea/Vomiting Physical Exam - Constitutional Appears: Non-toxic, No Acute Distress - Head Exam Head Exam: ATRAUMATIC - ENT Exam ENT Exam: Mucous Membranes Moist - Respiratory Exam Respiratory Exam: NORMAL BREATHING PATTERN. absent: Accessory Muscle Use, Rhonchi, Wheezes - Cardiovascular Exam Cardiovascular Exam: +S1, +S2 - GI/Abdominal Exam GI & Abdominal Exam: Soft. absent: Firm, Guarding, Rigid, Tenderness - Extremities Exam Additional comments: Right ankle Dressing in place. C/D/I - Skin Skin Exam: Warm Results - Vital Signs Recent Vital Signs: Last Vital Signs Temp 98.4 F 01/20/17 15:10 Pulse 72 01/20/17 15:10 Resp 18 01/20/17 15:10 BP 157/85 H 01/20/17 15:10 Pulse Ox 97 01/20/17 15:10 - Labs Result Diagrams: 01/20/17 06:51 01/20/17 06:51 Labs: Laboratory Results - last 24 hr 01/20/17 01/20/17 06:51 06:51 WBC 6.0 RBC 4.77 Hgb 12.9 Hct 39.6 MCV 83.0 MCH 27.1 MCHC 32.6 L RDW 13.6 Plt Count 308 MPV 8.3 Neut % (Auto) 57.5 Lymph % (Auto) 27.8 [place] % (Auto) 12.1 H Eos % (Auto) 2.3 Baso % (Auto) 0.3 Neut # 3.4 Lymph # 1.7 [place] # 0.7 Eos # 0.1 Baso # 0.0 Sodium 137 Potassium 4.4 Chloride 100 Carbon Dioxide 22 Anion Gap 19 BUN 22 H Creatinine 1.5 Est GFR ( Amer) 56 Est GFR (Non-Af Amer) 46 Random Glucose 107 Calcium 9.1 Total Bilirubin 0.7 AST 26 ALT 35 Alkaline Phosphatase 53 Total Protein 7.6 Albumin 3.6 Globulin 4.0 H Albumin/Globulin Ratio 0.9 L Assessment & Plan - Assessment and Plan (Free Text) Assessment: 72M s/p Right ankle debridement evaluation for PVD Plan: - plan for CTA to evaluate patency of vessels * Pt has a hx of CKD; BUN/Cr stable. will prescribe mucomyst prior to evaluation - d/w Dr. Kevin Murray PGY1
--- NOTE | 2017-01-20 19:16 | CP.PCM.PN ---
Subjective - Date & Time of Evaluation Date of Evaluation: 01/20/17 Time of Evaluation: 10:20 - Subjective Subjective: Vascular Surgery- Dr. Brown Pt S&E at bedside this AM. Appropriately tender around debridement area from yesterday. Denies N/V F/C CP/SOB. Objective - Vital Signs/Intake and Output Vital Signs (last 24 hours): Temp Pulse Resp BP Pulse Ox 98.4 F 72 18 157/85 H 97 01/20/17 15:10 01/20/17 15:10 01/20/17 15:10 01/20/17 15:10 01/20/17 15:10 Intake and Output: 01/20/17 01/21/17 18:59 06:59 Intake Total 350 Output Total 350 Balance 0 - Medications Medications: Current Medications Acetaminophen (Tylenol 325mg Tab) 650 mg PO Q6 PRN PRN Reason: Fever >100.4 F Last Admin: 01/20/17 02:18 Dose: 650 mg Acetylcysteine (Acetylcysteine 20%) 6 ml PO Q12H [facility] Stop: 01/21/17 11:46 Last Admin: 01/20/17 12:41 Dose: 6 ml Amlodipine Besylate (Norvasc) 10 mg PO DAILY [facility] Last Admin: 01/20/17 09:14 Dose: 10 mg Famotidine (Pepcid) 20 mg PO DAILY [facility] Last Admin: 01/20/17 09:14 Dose: 20 mg Heparin Sodium (Porcine) (Heparin) 5,000 units SC Q12 [facility] Last Admin: 01/20/17 09:14 Dose: 5,000 units Hydromorphone/Sodium Chloride (Dilaudid Set Builder) 6 mg IV Q4H PRN; Protocol PRN Reason: Pain, severe (8-10) Last Admin: 01/20/17 11:10 Dose: 6 mg Lactated Ringer's (Lactated Ringer's) 1,000 mls @ 150 mls/hr IV .Q6H40M [facility] Last Admin: 01/20/17 18:05 Dose: Not Given Cefepime HCl (Maxipime Iv 1 Gm Premix) 1 gm in 50 mls @ 100 mls/hr IVPB Q12H [facility] Last Admin: 01/20/17 18:01 Dose: 100 mls/hr Clindamycin Phosphate 600 mg/ (Sodium Chloride) 54 mls @ 100 mls/hr IVPB Q8H [facility] Last Admin: 01/20/17 18:01 Dose: 100 mls/hr Losartan Potassium (Cozaar) 100 mg PO DAILY [facility] Last Admin: 01/20/17 09:14 Dose: 100 mg Metoprolol Tartrate (Lopressor) 50 mg PO BID [facility] Last Admin: 01/20/17 18:02 Dose: 50 mg Ondansetron HCl (Zofran Inj) 4 mg IVP DAILY@ONCE PRN PRN Reason: Nausea/Vomiting - Labs Labs: 01/20/17 06:51 01/20/17 06:51 - Constitutional Appears: No Acute Distress - Head Exam Head Exam: ATRAUMATIC - Eye Exam Eye Exam: EOMI - Respiratory Exam Respiratory Exam: NORMAL BREATHING PATTERN. absent: Accessory Muscle Use, Rhonchi, Wheezes - Cardiovascular Exam Cardiovascular Exam: +S1, +S2 - GI/Abdominal Exam GI & Abdominal Exam: Soft, Normal Bowel Sounds. absent: Distended, Guarding, Rigid, Tenderness - Extremities Exam Additional comments: Right Dressing C/D/I - Neurological Exam Neurological Exam: Awake, Oriented x3 - Skin Skin Exam: Warm Assessment and Plan - Assessment and Plan (Free Text) Assessment: 72M POD2 s/p debridement of R. ankle by podiatry; evaluation for PVD Plan: - Plan for CTA today - further Recs per Dr. Brown D/W Dr. Kevin Murray PGY1
[2017-01-21] MEDS: Lactated Ringer's 1,000 ML IV SCH ×3 (00:52→16:00)
--- NOTE | 2017-01-21 02:21 | HP ---
HISTORY OF PRESENT ILLNESS: The patient is a 72-year-old male with gangrene of the left ankle. The patient has seen the house registry rn, advised the patient undergo debridement. The patient has multiple episodes of infection in the foot and ankle. PHYSICAL EXAMINATION: GENERAL: The patient is currently awake, alert, and oriented. VITAL SIGNS: Temperature 98.6, pulse is 92, blood pressure 130/80. HEENT: Within normal limits. NECK: Supple. CHEST: Symmetrical. HEART: Regular. ABDOMEN: Soft. EXTREMITIES: There is a large wound in the left ankle about the lateral malleolus. IMPRESSION: The patient suffers from gangrene of the foot and ankle. *------* IV antibiotics and podiatry consult. Carl Paredes MD
[2017-01-21] MEDS: Cefepime IV 1 gm in Dextrose 1 GM/50 ML BAG IVPB SCH ×2 (05:07→17:48)
[2017-01-21 06:19] LABS: BASO % 0.4 % (0.0-2.0); EOS # 0.3 K/uL (0.0-0.7); EOS % 3.6 % (0.0-4.0); HEMATOCRIT 37.1 % (35.0-51.0); LYMPH # 1.5 K/uL (1.0-4.3); LYMPH % 20.7 % (20.0-40.0); MEAN CORPUSCULAR HEMOGLOBIN 27.6 pg (27.0-31.0); MEAN CORPUSCULAR HGB CONC 33.2 g/dL (33.0-37.0); MEAN PLATELET VOLUME 8.2 fL (7.2-11.7); MONO # 1.1 K/uL (0.0-0.8); MONO % 15.8 % (0.0-10.0); RED CELL DISTRIBUTION WIDTH 13.8 % (11.5-14.5); WHITE BLOOD COUNT 7.2 K/uL (4.8-10.8)
[2017-01-21 06:29] LABS: ALKALINE PHOSPHATASE 42 U/L (38-126); ALT/SGPT 37 U/L (21-72); AST/SGOT 25 U/L (17-59); BILIRUBIN,TOTAL 0.4 mg/dL (0.2-1.3); BLOOD UREA NITROGEN 17 mg/dL (9-20); CALCIUM 8.9 mg/dl (8.6-10.4); CARBON DIOXIDE 25 mmol/L (22-30); CHLORIDE 99 mmol/L (98-107); GFR AFRICAN-AMERICAN > 60; GLUCOSE,RANDOM 99 mg/dL (75-110); MAGNESIUM 1.8 mg/dL (1.6-2.3); PHOSPHOROUS 3.8 mg/dL (2.5-4.5); POTASSIUM 4.1 mmol/L (3.6-5.2); SODIUM 134 mmol/L (132-148); TOTAL PROTEIN 6.7 g/dL (6.3-8.3)
--- NOTE | 2017-01-21 10:25 | CP.PCM.PN ---
Subjective - Date & Time of Evaluation Date of Evaluation: 01/21/17 Time of Evaluation: 07:50 - Subjective Subjective: General Surgery Note Patient was seen and examined at bedside in no acute distress. Patient was resting comfortable in bed. Patient denies chest pain, palpitations, sob, leg pain, nausea, vomiting, fever and chills. Patient reports that he is doing well and has no complaints. Objective - Vital Signs/Intake and Output Vital Signs (last 24 hours): Temp Pulse Resp BP Pulse Ox 98.3 F 70 20 152/84 H 96 01/21/17 07:50 01/21/17 07:50 01/21/17 07:50 01/21/17 07:50 01/21/17 07:50 Intake and Output: 01/21/17 01/21/17 06:59 18:59 Intake Total 2000 Output Total 1925 Balance 75 - Medications Medications: Current Medications Acetaminophen (Tylenol 325mg Tab) 650 mg PO Q6 PRN PRN Reason: Fever >100.4 F Last Admin: 01/20/17 02:18 Dose: 650 mg Acetylcysteine (Acetylcysteine 20%) 6 ml PO Q12H [facility] Stop: 01/21/17 11:46 Last Admin: 01/20/17 22:58 Dose: 6 ml Amlodipine Besylate (Norvasc) 10 mg PO DAILY [facility] Last Admin: 01/21/17 09:06 Dose: 10 mg Famotidine (Pepcid) 20 mg PO DAILY [facility] Last Admin: 01/21/17 09:06 Dose: 20 mg Heparin Sodium (Porcine) (Heparin) 5,000 units SC Q12 [facility] Last Admin: 01/21/17 09:06 Dose: 5,000 units Hydromorphone/Sodium Chloride (Dilaudid Weave Room Supervisor) 6 mg IV Q4H PRN; Protocol PRN Reason: Pain, severe (8-10) Last Admin: 01/20/17 11:10 Dose: 6 mg Cefepime HCl (Maxipime Iv 1 Gm Premix) 1 gm in 50 mls @ 100 mls/hr IVPB Q12H [facility] Last Admin: 01/21/17 05:07 Dose: 100 mls/hr Clindamycin Phosphate 600 mg/ (Sodium Chloride) 54 mls @ 100 mls/hr IVPB Q8H [facility] Last Admin: 08/11/17 02:44 Dose: 100 mls/hr Losartan Potassium (Cozaar) 100 mg PO DAILY [facility] Last Admin: 01/21/17 09:06 Dose: 100 mg Metoprolol Tartrate (Lopressor) 50 mg PO BID [facility] Last Admin: 01/21/17 09:06 Dose: 50 mg Ondansetron HCl (Zofran Inj) 4 mg IVP DAILY@ONCE PRN PRN Reason: Nausea/Vomiting - Labs Labs: 01/21/17 06:04 01/21/17 06:04 - Constitutional Appears: Well, No Acute Distress - Head Exam Head Exam: ATRAUMATIC, NORMAL INSPECTION - Eye Exam Eye Exam: EOMI, Normal appearance - Respiratory Exam Respiratory Exam: Clear to Ausculation Bilateral, NORMAL BREATHING PATTERN - Cardiovascular Exam Cardiovascular Exam: REGULAR RHYTHM, +S1, +S2 - GI/Abdominal Exam GI & Abdominal Exam: Soft, Normal Bowel Sounds - Extremities Exam Extremities Exam: Tenderness. absent: Calf Tenderness, Pedal Edema - Neurological Exam Neurological Exam: Alert, Awake, Oriented x3 - Psychiatric Exam Psychiatric exam: Normal Affect, Normal Mood - Skin Skin Exam: Dry, Normal Color, Warm Assessment and Plan - Assessment and Plan (Free Text) Assessment: 72M POD2 s/p debridement of R. ankle by podiatry; evaluation for PVD with CTA showing left anterior tibial occluded 2 cm from origin, right anterior tibial has moderate plaque but patent Plan: -No surgical intervention needed at this time -Continue follow-up with podiatry -Patient is okay for discharge from surgical standpoint Plans discuss with Dr. Brown
--- NOTE | 2017-01-21 11:19 | CP.PCM.PN ---
Subjective - Date & Time of Evaluation Date of Evaluation: 01/21/17 Time of Evaluation: 07:00 - Subjective Subjective: PGY-[address] Paredes Patient seen and examined at bedside. Patient started using EARLY CHILDHOOD ASSISTANT for pain and reports to manage his pain well. No acute events reported overnight. Patient denies headache, fever, chills, shortness of breath, chest pain, nausea, or vomiting. Objective - Vital Signs/Intake and Output Vital Signs (last 24 hours): Temp Pulse Resp BP Pulse Ox 98.3 F 70 20 152/84 H 96 01/21/17 07:50 01/21/17 07:50 01/21/17 07:50 01/21/17 07:50 01/21/17 07:50 Intake and Output: 01/21/17 01/21/17 06:59 18:59 Intake Total 2000 Output Total 1925 Balance 75 - Medications Medications: Current Medications Acetaminophen (Tylenol 325mg Tab) 650 mg PO Q6 PRN PRN Reason: Fever >100.4 F Last Admin: 01/20/17 02:18 Dose: 650 mg Acetylcysteine (Acetylcysteine 20%) 6 ml PO Q12H [facility] Stop: 01/21/17 11:46 Last Admin: 01/20/17 22:58 Dose: 6 ml Amlodipine Besylate (Norvasc) 10 mg PO DAILY [facility] Last Admin: 01/21/17 09:06 Dose: 10 mg Famotidine (Pepcid) 20 mg PO DAILY [facility] Last Admin: 01/21/17 09:06 Dose: 20 mg Heparin Sodium (Porcine) (Heparin) 5,000 units SC Q12 [facility] Last Admin: 01/21/17 09:06 Dose: 5,000 units Hydromorphone/Sodium Chloride (Dilaudid Electrode Cleaner) 6 mg IV Q4H PRN; Protocol PRN Reason: Pain, severe (8-10) Last Admin: 01/20/17 11:10 Dose: 6 mg Cefepime HCl (Maxipime Iv 1 Gm Premix) 1 gm in 50 mls @ 100 mls/hr IVPB Q12H [facility] Last Admin: 01/21/17 05:07 Dose: 100 mls/hr Clindamycin Phosphate 600 mg/ (Sodium Chloride) 54 mls @ 100 mls/hr IVPB Q8H [facility] Last Admin: 01/21/17 02:44 Dose: 100 mls/hr Losartan Potassium (Cozaar) 100 mg PO DAILY [facility] Last Admin: 01/21/17 09:06 Dose: 100 mg Metoprolol Tartrate (Lopressor) 50 mg PO BID [facility] Last Admin: 01/21/17 09:06 Dose: 50 mg Ondansetron HCl (Zofran Inj) 4 mg IVP DAILY@ONCE PRN PRN Reason: Nausea/Vomiting - Labs Labs: 01/21/17 06:04 01/21/17 06:04 - Constitutional Appears: Non-toxic, No Acute Distress - Head Exam Head Exam: ATRAUMATIC, NORMAL INSPECTION - Eye Exam Eye Exam: EOMI, Normal appearance - ENT Exam ENT Exam: Mucous Membranes Moist - Neck Exam Neck Exam: Normal Inspection - Respiratory Exam Respiratory Exam: Clear to Ausculation Bilateral, NORMAL BREATHING PATTERN. absent: Respiratory Distress - Cardiovascular Exam Cardiovascular Exam: REGULAR RHYTHM, +S1, +S2. absent: Murmur - GI/Abdominal Exam GI & Abdominal Exam: Soft, Normal Bowel Sounds. absent: Tenderness - Extremities Exam Additional comments: minimal sanguineous drainage note at inferior medial aspect of right ankle dressing, 2+ pulses, sensory intact - Neurological Exam Neurological Exam: Alert, Awake, Oriented x3 - Psychiatric Exam Psychiatric exam: Normal Affect, Normal Mood - Skin Skin Exam: Normal Color, Warm Assessment and Plan - Assessment and Plan (Free Text) Assessment: 72 year old male with past medical history of hypertension, chronic lower extremity ulcers s/p wound debridement on 01/19 secondary to right ankle gangrene. Right ankle gangrene -S/P Right ankle wound debridement POD #2 -Dr. Garcia Podiatry: Follow podiatry recommendations -Follow ID recommendations for antibiotics -Continue IV clindamycin and Cefepime -EARLY CHILDHOOD ASSISTANT for pain -Follow up wound cultures, no growth after 24 hours -f/u am labs PVD -Vascular surgery consult, Dr. Brown help appreciated -CT showed unremarkable abdomen pelvis. 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 RLE with moderate plaque in the anterior tibial artery which is believed to be patent ( see report for details). -No surgical intervention indicated at this time per surgery team HTN -Norvasc 10mg po -Cozaar 100mg po -Metoprolol 50mg po bid -Hold HCTZ due to increased creatinine (Cr decreased from 1.9 to 1.5) -f/u am labs Prophylactic measure -Pepcid -Heparin 5000 U SC Q12 -Tylenol -Zofran All management per Dr. Paredes
[2017-01-21] MEDS: Acetylcysteine 20% Inhal Soln (4ml) PO SCH (12:43)
--- NOTE | 2017-01-21 13:30 | CP.PCM.PN ---
Subjective - Date & Time of Evaluation Date of Evaluation: 01/21/17 Time of Evaluation: 11:00 - Subjective Subjective: 72 y/o male seen at bedside this morning with attending Dr. Turner 2 days s/ p wound debridement secondary to right ankle gangrene. Patient appears to be resting comfortably in his bed. Patient appears in NAD and is AAOx3. Patient denies of any acute overnight events and states that he slept well. Patient states that LOADING MANAGER pump was placed yesterday and has been using that to relieve pain. Patient denies of any other pedal complains. Patient denies of any F/N/V/C /SOB/CP today. Objective - Vital Signs/Intake and Output Vital Signs (last 24 hours): Temp Pulse Resp BP Pulse Ox 98.3 F 70 20 152/84 H 96 01/21/17 07:50 01/21/17 07:50 01/21/17 07:50 01/21/17 07:50 01/21/17 07:50 Intake and Output: 01/21/17 01/21/17 06:59 18:59 Intake Total 2000 Output Total 1925 Balance 75 - Medications Medications: Current Medications Acetaminophen (Tylenol 325mg Tab) 650 mg PO Q6 PRN PRN Reason: Fever >100.4 F Last Admin: 01/20/17 02:18 Dose: 650 mg Amlodipine Besylate (Norvasc) 10 mg PO DAILY [facility] Last Admin: 01/21/17 09:06 Dose: 10 mg Famotidine (Pepcid) 20 mg PO DAILY [facility] Last Admin: 01/21/17 09:06 Dose: 20 mg Heparin Sodium (Porcine) (Heparin) 5,000 units SC Q12 [facility] Last Admin: 01/21/17 09:06 Dose: 5,000 units Hydromorphone/Sodium Chloride (Dilaudid Dairy Scientist) 6 mg IV Q4H PRN; Protocol PRN Reason: Pain, severe (8-10) Last Admin: 01/20/17 11:10 Dose: 6 mg Cefepime HCl (Maxipime Iv 1 Gm Premix) 1 gm in 50 mls @ 100 mls/hr IVPB Q12H [facility] Last Admin: 01/21/17 05:07 Dose: 100 mls/hr Clindamycin Phosphate 600 mg/ (Sodium Chloride) 54 mls @ 100 mls/hr IVPB Q8H [facility] Last Admin: 01/21/17 11:00 Dose: 100 mls/hr Losartan Potassium (Cozaar) 100 mg PO DAILY [facility] Last Admin: 01/21/17 09:06 Dose: 100 mg Metoprolol Tartrate (Lopressor) 50 mg PO BID [facility] Last Admin: 01/21/17 09:06 Dose: 50 mg Ondansetron HCl (Zofran Inj) 4 mg IVP DAILY@ONCE PRN PRN Reason: Nausea/Vomiting - Labs Labs: 01/21/17 06:04 01/21/17 06:04 - Constitutional Appears: Well, Non-toxic, No Acute Distress - Extremities Exam Additional comments: RLE focused physical exam: VASC: DP and PT pulses are palpable 2/4; Temperature gradient warm to cool from proximal to distal, SOLAR DEVELOPMENT ENGINEER <3 seconds to all digits. No edema noted DERM: posterolateral right ankle wound measures approximately 6.5 cm x 4.5 cm x 0.3 cm with granular base, Achilles tendon as well as the peroneal tendons exposed posterior-lateral and laterally respectively, no purulence, no malodor, no active drainage, no tunneling, no undermining, no ascending cellulitis NEURO: Protective sensation is grossly intact ORTHO: Tenderness noted to palpation surrounding wound - Neurological Exam Neurological Exam: Alert, Awake, Oriented x3 - Psychiatric Exam Psychiatric exam: Normal Affect, Normal Mood Assessment and Plan - Assessment and Plan (Free Text) Assessment: 72 y/o male seen at bedside 2 days s/p wound debridement secondary to right ankle gangrene. Plan: Patient seen and evaluated with attending Dr. Turner Charts, labs and vitals reviewed (afebrile; WBC @ 7.2) Dressing changed with copious amount of H2O2, Saline, wet to dry 4x4, ABD, Kerlix Patient tolerated the dressing change well without any pain or incident Operative cultures - pending Vascular team consulted - CT angio: Unremarkable CT angio of abdominal pelvis, good lower extremity runoff Patient to remain on IV abx as per ID Patient to remain in hospital for further treatment of the open wound Podiatry plans for graft placement in future Podiatry will perform daily dressing changes and will continue to follow patient while in house
--- NOTE | 2017-01-21 17:32 | CP.PCM.PN ---
Subjective - Date & Time of Evaluation Date of Evaluation: 01/21/17 Time of Evaluation: 08:00 - Subjective Subjective: no new positive cultures iv rx in progress Objective - Vital Signs/Intake and Output Vital Signs (last 24 hours): Temp Pulse Resp BP Pulse Ox 99.6 F 96 H 20 146/81 96 01/21/17 15:15 01/21/17 15:15 01/21/17 15:15 01/21/17 15:15 01/21/17 15:15 Intake and Output: 01/21/17 01/21/17 06:59 18:59 Intake Total 1999 1099 Output Total 1925 900 Balance 75 200 - Medications Medications: Current Medications Acetaminophen (Tylenol 325mg Tab) 650 mg PO Q6 PRN PRN Reason: Fever >100.4 F Last Admin: 01/20/17 02:18 Dose: 650 mg Amlodipine Besylate (Norvasc) 10 mg PO DAILY [facility] Last Admin: 01/21/17 09:06 Dose: 10 mg Famotidine (Pepcid) 20 mg PO DAILY [facility] Last Admin: 01/21/17 09:06 Dose: 20 mg Heparin Sodium (Porcine) (Heparin) 5,000 units SC Q12 [facility] Last Admin: 01/21/17 09:06 Dose: 5,000 units Hydromorphone/Sodium Chloride (Dilaudid Cost Accountant) 6 mg IV Q4H PRN; Protocol PRN Reason: Pain, severe (8-10) Last Admin: 01/20/17 11:10 Dose: 6 mg Cefepime HCl (Maxipime Iv 1 Gm Premix) 1 gm in 50 mls @ 100 mls/hr IVPB Q12H [facility] Last Admin: 01/21/17 05:07 Dose: 100 mls/hr Clindamycin Phosphate 600 mg/ (Sodium Chloride) 54 mls @ 100 mls/hr IVPB Q8H [facility] Last Admin: 01/21/17 11:00 Dose: 100 mls/hr Lactated Ringer's (Lactated Ringer's) 1,000 mls @ 100 mls/hr IV .Q10H [facility] Losartan Potassium (Cozaar) 100 mg PO DAILY [facility] Last Admin: 01/21/17 09:06 Dose: 100 mg Metoprolol Tartrate (Lopressor) 50 mg PO BID [facility] Last Admin: 01/21/17 09:06 Dose: 50 mg Ondansetron HCl (Zofran Inj) 4 mg IVP DAILY@ONCE PRN PRN Reason: Nausea/Vomiting - Labs Labs: 01/21/17 06:04 01/21/17 06:04 - Constitutional Appears: Non-toxic, Chronically Ill - Head Exam Head Exam: NORMOCEPHALIC - Eye Exam Eye Exam: PERRL. absent: Scleral icterus - ENT Exam ENT Exam: Mucous Membranes Dry - Neck Exam Neck Exam: absent: Lymphadenopathy - Respiratory Exam Respiratory Exam: Decreased Breath Sounds - Cardiovascular Exam Cardiovascular Exam: REGULAR RHYTHM - GI/Abdominal Exam GI & Abdominal Exam: Distended, Soft - Rectal Exam Rectal Exam: Deferred - Exam Exam: NORMAL INSPECTION - Extremities Exam Additional comments: RLE focused physical exam: VASC: DP and PT pulses are palpable 2/4; Temperature gradient warm to cool from proximal to distal, SCIENCE EDUCATION PROFESSOR <3 seconds to all digits. No edema noted DERM: posterolateral right ankle wound measures approximately 6.5 cm x 4.5 cm x 0.3 cm with granular base, Achilles tendon as well as the peroneal tendons exposed posterior-lateral and laterally respectively, no purulence, no malodor, no active drainage, no tunneling, no undermining, no ascending cellulitis NEURO: Protective sensation is grossly intact ORTHO: Tenderness noted to palpation surrounding wound Assessment and Plan (1) Failure of outpatient treatment Status: Acute (2) HTN (hypertension) Status: Acute (3) Non-healing ulcer of ankle Status: Chronic - Assessment and Plan (Free Text) Plan: will likely need [facility] iv antibiotics cont wound care
[2017-01-22] MEDS: Lactated Ringer's 1,000 ML IV SCH ×2 (02:17→16:00)
[2017-01-22] MEDS: Cefepime IV 1 gm in Dextrose 1 GM/50 ML BAG IVPB SCH ×2 (06:08→18:25)
[2017-01-22 08:09] LABS: BASO % 0.5 % (0.0-2.0); EOS # 0.1 K/uL (0.0-0.7); EOS % 0.8 % (0.0-4.0); HEMATOCRIT 37.1 % (35.0-51.0); LYMPH # 1.8 K/uL (1.0-4.3); LYMPH % 17.8 % (20.0-40.0); MEAN CELL VOLUME 81.9 fL (80.0-94.0); MEAN CORPUSCULAR HEMOGLOBIN 27.5 pg (27.0-31.0); MEAN CORPUSCULAR HGB CONC 33.5 g/dL (33.0-37.0); MEAN PLATELET VOLUME 8.4 fL (7.2-11.7); MONO # 1.4 K/uL (0.0-0.8); MONO % 13.2 % (0.0-10.0); NRBC % 0.1 % (0.0-2.0); RED CELL DISTRIBUTION WIDTH 13.5 % (11.5-14.5); WHITE BLOOD COUNT 10.3 K/uL (4.8-10.8)
[2017-01-22 08:36] LABS: ALB/GLOB RATIO 0.9 (1.0-2.1); ALKALINE PHOSPHATASE 51 U/L (38-126); ALT/SGPT 32 U/L (21-72); AST/SGOT 18 U/L (17-59); BILIRUBIN,TOTAL 0.6 mg/dL (0.2-1.3); BLOOD UREA NITROGEN 16 mg/dL (9-20); CALCIUM 9.3 mg/dl (8.6-10.4); CARBON DIOXIDE 24 mmol/L (22-30); CHLORIDE 98 mmol/L (98-107); GFR AFRICAN-AMERICAN > 60; GLUCOSE,RANDOM 88 mg/dL (75-110); POTASSIUM 4.1 mmol/L (3.6-5.2); SODIUM 135 mmol/L (132-148)
--- NOTE | 2017-01-22 17:36 | CP.PCM.PN ---
Subjective - Date & Time of Evaluation Date of Evaluation: 01/22/17 Time of Evaluation: 15:33 - Subjective Subjective: 72 year old male seen at bedside this morning 3 days s/p wound debridement secondary to right ankle gangrene. Patient appears to be resting comfortably in his bed, AAO x3, and in NAD. Patient states he is not in much pain today. He states pain is relieved by the ARCHITECTURAL JOB CAPTAIN pump. Patient denies of any other pedal complains. Patient denies of any F/N/V/C/SOB/CP today. Objective - Vital Signs/Intake and Output Vital Signs (last 24 hours): Temp Pulse Resp BP Pulse Ox 99 F 81 20 157/88 H 97 01/22/17 15:07 01/22/17 15:07 01/22/17 15:07 01/22/17 15:07 01/22/17 15:07 Intake and Output: 01/22/17 01/22/17 06:59 18:59 Intake Total 800 1150 Output Total 550 1350 Balance 250 -200 - Medications Medications: Current Medications Acetaminophen (Tylenol 325mg Tab) 650 mg PO Q6 PRN PRN Reason: Fever >100.4 F Last Admin: 01/20/17 02:18 Dose: 650 mg Amlodipine Besylate (Norvasc) 10 mg PO DAILY [facility] Last Admin: 01/22/17 09:09 Dose: 10 mg Famotidine (Pepcid) 20 mg PO DAILY [facility] Last Admin: 01/22/17 09:09 Dose: 20 mg Heparin Sodium (Porcine) (Heparin) 5,000 units SC Q12 [facility] Last Admin: 01/22/17 09:08 Dose: 5,000 units Cefepime HCl (Maxipime Iv 1 Gm Premix) 1 gm in 50 mls @ 100 mls/hr IVPB Q12H [facility] Last Admin: 01/22/17 06:08 Dose: 100 mls/hr Clindamycin Phosphate 600 mg/ (Sodium Chloride) 54 mls @ 100 mls/hr IVPB Q8H [facility] Last Admin: 01/22/17 10:13 Dose: 100 mls/hr Lactated Ringer's (Lactated Ringer's) 1,000 mls @ 100 mls/hr IV .Q10H [facility] Last Admin: 01/22/17 02:17 Dose: 100 mls/hr Losartan Potassium (Cozaar) 100 mg PO DAILY [facility] Last Admin: 01/22/17 09:08 Dose: 100 mg Metoprolol Tartrate (Lopressor) 50 mg PO BID [facility] Last Admin: 01/22/17 09:08 Dose: 50 mg Ondansetron HCl (Zofran Inj) 4 mg IVP DAILY@ONCE PRN PRN Reason: Nausea/Vomiting - Labs Labs: 01/22/17 07:56 01/22/17 07:56 - Constitutional Appears: Well, Non-toxic, No Acute Distress - Extremities Exam Additional comments: RLE focused physical exam: VASC: DP and PT pulses are palpable 2/4; Temperature gradient warm to cool from proximal to distal, WELDER ASSISTANT <3 seconds to all digits. No edema noted DERM: posterolateral right ankle wound measures approximately 6.5 cm x 4.5 cm x 0.3 cm with granular base, Achilles tendon as well as the peroneal tendons exposed posterior-lateral and laterally respectively, no purulence, no malodor, no active drainage, no tunneling, no undermining, no ascending cellulitis NEURO: Protective sensation is grossly intact ORTHO: Tenderness noted to palpation surrounding wound - Neurological Exam Neurological Exam: Alert, Awake, Oriented x3 - Psychiatric Exam Psychiatric exam: Normal Affect, Normal Mood Assessment and Plan - Assessment and Plan (Free Text) Assessment: 72 y/o male seen at bedside 2 days s/p wound debridement secondary to right ankle gangrene. Plan: Patient seen and evaluated Plan discussed in detail with Dr. Gipson Charts, labs and vitals reviewed (afebrile; WBC @ 10.3) Dressing changed with copious amount of H2O2, Saline, wet to dry 4x4, xeroform, ABD, Kerlix Patient tolerated the dressing change well without any pain or incident Operative cultures - pending final results- prelimlary shows no growth Vascular team consulted - CT angio: Unremarkable CT angio of abdominal pelvis, good lower extremity runoff Patient to remain on IV abx as per ID Patient to remain in hospital for further treatment of the open wound Podiatry plans for graft placement in future Podiatry will perform daily dressing changes and will continue to follow patient while in house
[2017-01-23] MEDS: Cefepime IV 1 gm in Dextrose 1 GM/50 ML BAG IVPB SCH ×2 (05:41→17:44)
[2017-01-23] MEDS: Lactated Ringer's 1,000 ML IV SCH ×3 (05:44→18:20)
--- NOTE | 2017-01-23 13:10 | CP.PCM.PN ---
Subjective - Date & Time of Evaluation Date of Evaluation: 01/23/17 Time of Evaluation: 08:00 - Subjective Subjective: has large open wound right ankle lat aspect no pus or drainage cultures this admission negative will likely need skin graft cont iv antibiotics for 6 weeks Objective - Vital Signs/Intake and Output Vital Signs (last 24 hours): Temp Pulse Resp BP Pulse Ox 98.5 F 75 17 148/86 96 01/23/17 07:00 01/23/17 07:00 01/23/17 07:00 01/23/17 07:00 01/23/17 07:00 Intake and Output: 01/23/17 01/23/17 06:59 18:59 Output Total 450 Balance -450 - Medications Medications: Current Medications Acetaminophen (Tylenol 325mg Tab) 650 mg PO Q6 PRN PRN Reason: Fever >100.4 F Last Admin: 01/20/17 02:18 Dose: 650 mg Amlodipine Besylate (Norvasc) 10 mg PO DAILY [facility] Last Admin: 01/23/17 09:13 Dose: 10 mg Famotidine (Pepcid) 20 mg PO DAILY [facility] Last Admin: 01/23/17 09:13 Dose: 20 mg Cefepime HCl (Maxipime Iv 1 Gm Premix) 1 gm in 50 mls @ 100 mls/hr IVPB Q12H [facility] Last Admin: 01/23/17 05:41 Dose: 100 mls/hr Clindamycin Phosphate 600 mg/ (Sodium Chloride) 54 mls @ 100 mls/hr IVPB Q8H [facility] Last Admin: 01/23/17 11:48 Dose: 100 mls/hr Lactated Ringer's (Lactated Ringer's) 1,000 mls @ 100 mls/hr IV .Q10H [facility] Last Admin: 01/23/17 05:44 Dose: 100 mls/hr Losartan Potassium (Cozaar) 100 mg PO DAILY [facility] Last Admin: 01/23/17 09:13 Dose: 100 mg Metoprolol Tartrate (Lopressor) 50 mg PO BID [facility] Last Admin: 01/23/17 09:13 Dose: 50 mg Ondansetron HCl (Zofran Inj) 4 mg IVP DAILY@ONCE PRN PRN Reason: Nausea/Vomiting - Labs Labs: 01/22/17 07:56 01/22/17 07:56 - Constitutional Appears: Non-toxic, Chronically Ill - Head Exam Head Exam: NORMOCEPHALIC - Eye Exam Eye Exam: PERRL. absent: Scleral icterus - ENT Exam ENT Exam: Mucous Membranes Dry, Normal External Ear Exam - Neck Exam Neck Exam: absent: Lymphadenopathy - Respiratory Exam Respiratory Exam: Decreased Breath Sounds - Cardiovascular Exam Cardiovascular Exam: REGULAR RHYTHM - GI/Abdominal Exam GI & Abdominal Exam: Distended - Rectal Exam Rectal Exam: Deferred - Exam Exam: NORMAL INSPECTION - Extremities Exam Extremities Exam: Pedal Edema, Tenderness - Back Exam Back Exam: absent: CVA tenderness (L), CVA tenderness (R) Assessment and Plan (1) Failure of outpatient treatment Status: Acute (2) HTN (hypertension) Status: Acute (3) Non-healing ulcer of ankle Status: Chronic - Assessment and Plan (Free Text) Assessment: consider vascular consult/ re-eval plastics eval iv antibiotics wound care HEMALATHA
[2017-01-23 15:56] VITALS: RESP 20
--- NOTE | 2017-01-23 22:19 | CP.PCM.PN ---
Subjective - Date & Time of Evaluation Date of Evaluation: 01/23/17 Time of Evaluation: 14:00 - Subjective Subjective: 72 year old male seen at bedside this morning 4 days s/p wound debridement secondary to right ankle gangrene. Patient appears to be resting comfortably in his bed, AAO x3, and in NAD. Patient states he is in mild-moderate pain today. He states UPSETTER SETTER UP pump was removed. Patient denies of any other pedal complains. Patient denies of any F/N/V/C/SOB/CP today. Objective - Vital Signs/Intake and Output Vital Signs (last 24 hours): Temp Pulse Resp BP Pulse Ox 98.3 F 72 20 166/99 H 99 01/23/17 15:53 01/23/17 15:53 01/23/17 15:53 01/23/17 15:53 01/23/17 15:53 - Medications Medications: Current Medications Acetaminophen (Tylenol 325mg Tab) 650 mg PO Q6 PRN PRN Reason: Fever >100.4 F Last Admin: 01/23/17 15:04 Dose: 650 mg Amlodipine Besylate (Norvasc) 10 mg PO DAILY [facility] Last Admin: 01/23/17 09:13 Dose: 10 mg Famotidine (Pepcid) 20 mg PO DAILY [facility] Last Admin: 01/23/17 09:13 Dose: 20 mg Cefepime HCl (Maxipime Iv 1 Gm Premix) 1 gm in 50 mls @ 100 mls/hr IVPB Q12H [facility] Last Admin: 01/23/17 17:44 Dose: 100 mls/hr Clindamycin Phosphate 600 mg/ (Sodium Chloride) 54 mls @ 100 mls/hr IVPB Q8H [facility] Last Admin: 01/23/17 18:19 Dose: 100 mls/hr Lactated Ringer's (Lactated Ringer's) 1,000 mls @ 100 mls/hr IV .Q10H [facility] Last Admin: 01/23/17 18:20 Dose: Not Given Losartan Potassium (Cozaar) 100 mg PO DAILY [facility] Last Admin: 01/23/17 09:13 Dose: 100 mg Metoprolol Tartrate (Lopressor) 50 mg PO BID [facility] Last Admin: 01/23/17 17:44 Dose: 50 mg Ondansetron HCl (Zofran Inj) 4 mg IVP DAILY@ONCE PRN PRN Reason: Nausea/Vomiting Oxycodone/Acetaminophen (Percocet 5/325 Mg Tab) 1 tab PO Q4H PRN PRN Reason: Pain, moderate (4-7) Stop: 01/26/17 22:04 - Labs Labs: 01/22/17 07:56 01/22/17 07:56 - Constitutional Appears: Well, Non-toxic, No Acute Distress - Extremities Exam Additional comments: RLE focused physical exam: VASC: DP and PT pulses are palpable 2/4; Temperature gradient warm to cool from proximal to distal, PERSONAL FINANCIAL REPRESENTATIVE <3 seconds to all digits. No edema noted DERM: posterolateral right ankle wound measures approximately 6.5 cm x 4.5 cm x 0.3 cm with granular base, Achilles tendon as well as the peroneal tendons exposed posterior-lateral and laterally respectively, no purulence, no malodor, no active drainage, no tunneling, no undermining, no ascending cellulitis NEURO: Protective sensation is grossly intact ORTHO: Tenderness noted to palpation surrounding wound - Neurological Exam Neurological Exam: Alert, Awake, Oriented x3 - Psychiatric Exam Psychiatric exam: Normal Affect, Normal Mood Assessment and Plan - Assessment and Plan (Free Text) Assessment: 72 y/o male seen at bedside 4 days s/p wound debridement secondary to right ankle gangrene. Plan: Patient seen and evaluated Plan discussed in detail with Dr. Gipson Charts, labs and vitals reviewed (afebrile) Dressing changed with copious amount of H2O2, Saline, wet to dry 4x4, xeroform, ABD, Kerlix Patient tolerated the dressing change well without any pain or incident Operative cultures - pending final results- prelimlary shows no growth Vascular team consulted - CT angio: Unremarkable CT angio of abdominal pelvis, good lower extremity runoff Patient to remain on IV abx as per ID Patient to remain in hospital for further treatment of the open wound Podiatry plans for graft placement in future Podiatry will perform daily dressing changes and will continue to follow patient while in house
[2017-01-23] MEDS: Oxycodone/Acetaminophen 5/325 mg Tab PO PRN (22:23)
[2017-01-24] MEDS: Cefepime IV 1 gm in Dextrose 1 GM/50 ML BAG IVPB SCH (05:38)
--- NOTE | 2017-01-24 09:23 | CP.PCM.PN ---
Subjective - Date & Time of Evaluation Date of Evaluation: 01/24/17 Time of Evaluation: 09:20 - Subjective Subjective: Medicine Note for Dr. Paredes's Service Pt seen and examined at bedside. He is POD 5 s/p debridement. His wound dressing has been changed and appears C/D/I. He complains of painful discomfort in the RLE but states that the medications do a good job of controlling the pain. He was seen by Dr. Diamond yesterday and recommending continued IV abx. At this time the patient has only peripheral access. Objective - Vital Signs/Intake and Output Vital Signs (last 24 hours): Temp Pulse Resp BP Pulse Ox 97.7 F 76 20 157/88 H 97 01/24/17 08:10 01/24/17 08:10 01/24/17 08:10 01/24/17 08:10 01/24/17 08:10 Intake and Output: 01/24/17 01/24/17 06:59 18:59 Intake Total 800 Balance 800 - Medications Medications: Current Medications Acetaminophen (Tylenol 325mg Tab) 650 mg PO Q6 PRN PRN Reason: Fever >100.4 F Last Admin: 01/23/17 15:04 Dose: 650 mg Amlodipine Besylate (Norvasc) 10 mg PO DAILY [facility] Last Admin: 01/23/17 09:13 Dose: 10 mg Famotidine (Pepcid) 20 mg PO DAILY [facility] Last Admin: 01/23/17 09:13 Dose: 20 mg Heparin Sodium (Porcine) (Heparin) 5,000 units SC Q12 [facility] Last Admin: 01/23/17 22:43 Dose: 5,000 units Cefepime HCl (Maxipime Iv 1 Gm Premix) 1 gm in 50 mls @ 100 mls/hr IVPB Q12H [facility] Last Admin: 01/24/17 05:38 Dose: 100 mls/hr Clindamycin Phosphate 600 mg/ (Sodium Chloride) 54 mls @ 100 mls/hr IVPB Q8H [facility] Last Admin: 01/24/17 03:09 Dose: 100 mls/hr Lactated Ringer's (Lactated Ringer's) 1,000 mls @ 100 mls/hr IV .Q10H [facility] Last Admin: 01/23/17 18:20 Dose: Not Given Losartan Potassium (Cozaar) 100 mg PO DAILY [facility] Last Admin: 01/23/17 09:13 Dose: 100 mg Metoprolol Tartrate (Lopressor) 50 mg PO BID [facility] Last Admin: 01/23/17 17:44 Dose: 50 mg Ondansetron HCl (Zofran Inj) 4 mg IVP DAILY@ONCE PRN PRN Reason: Nausea/Vomiting Oxycodone/Acetaminophen (Percocet 5/325 Mg Tab) 1 tab PO Q4H PRN PRN Reason: Pain, moderate (4-7) Stop: 01/26/17 22:04 Last Admin: 01/23/17 22:23 Dose: 1 tab - Labs Labs: 01/22/17 07:56 01/22/17 07:56 - Constitutional Appears: No Acute Distress - Eye Exam Eye Exam: EOMI, Normal appearance - ENT Exam ENT Exam: Mucous Membranes Moist - Respiratory Exam Respiratory Exam: Clear to Ausculation Bilateral - Cardiovascular Exam Cardiovascular Exam: REGULAR RHYTHM - GI/Abdominal Exam GI & Abdominal Exam: Soft. absent: Tenderness - Extremities Exam Additional comments: wound dressing c/d/i - Neurological Exam Neurological Exam: Alert, Awake, Oriented x3 Assessment and Plan - Assessment and Plan (Free Text) Plan: Right ankle gangrene -S/P Right ankle wound debridement POD #5 -Dr. Garcia Podiatry: Follow podiatry recommendations Consideration for skin graft requiring plastic surgery consult -ID recommendations for antibiotics- 6weeks IV abx Continue IV clindamycin and Cefepime PICC line ordered -wound culture RLE- collected 01/19/17 Stenotrophomonas Maltophilia Coagulase negative staph Follow up sensitivities -f/u am labs PVD -Vascular surgery consult, Dr. Brown help appreciated -CT showed unremarkable abdomen pelvis. 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 RLE with moderate plaque in the anterior tibial artery which is believed to be patent ( see report for details). -No surgical intervention indicated at this time per surgery team HTN -Norvasc 10mg po -Cozaar 100mg po -Metoprolol 50mg po bid -Hold HCTZ due to increased creatinine (Cr decreased from 1.9 to 1.5) -f/u am labs Prophylactic measure -Pepcid -Heparin 5000 U SC Q12 -Tylenol -Zofran Case discussed with Dr. Paredes. All management as per Dr. Paredes.
[2017-01-24 11:16] LABS: BASO % 0.5 % (0.0-2.0); EOS # 0.2 K/uL (0.0-0.7); EOS % 3.1 % (0.0-4.0); HEMATOCRIT 37.7 % (35.0-51.0); LYMPH # 1.3 K/uL (1.0-4.3); LYMPH % 20.5 % (20.0-40.0); MEAN CELL VOLUME 82.2 fL (80.0-94.0); MEAN CORPUSCULAR HEMOGLOBIN 26.7 pg (27.0-31.0); MEAN CORPUSCULAR HGB CONC 32.5 g/dL (33.0-37.0); MEAN PLATELET VOLUME 8.7 fL (7.2-11.7); MONO # 1.3 K/uL (0.0-0.8); MONO % 19.5 % (0.0-10.0); RED CELL DISTRIBUTION WIDTH 13.5 % (11.5-14.5); WHITE BLOOD COUNT 6.5 K/uL (4.8-10.8)
[2017-01-24 11:28] LABS: CHLORIDE 100 mmol/L (98-107)
[2017-01-24 11:29] LABS: POTASSIUM 3.7 mmol/L (3.6-5.2); SODIUM 135 mmol/L (132-148)
[2017-01-24 11:31] LABS: ALB/GLOB RATIO 0.9 (1.0-2.1); ALKALINE PHOSPHATASE 52 U/L (38-126); AST/SGOT 22 U/L (17-59); BILIRUBIN,TOTAL 0.4 mg/dL (0.2-1.3); BLOOD UREA NITROGEN 14 mg/dL (9-20); CARBON DIOXIDE 26 mmol/L (22-30); GFR AFRICAN-AMERICAN > 60; TOTAL PROTEIN 7.2 g/dL (6.3-8.3)
[2017-01-24 11:32] LABS: ALT/SGPT 33 U/L (21-72); CALCIUM 9.1 mg/dl (8.6-10.4); GLUCOSE,RANDOM 88 mg/dL (75-110)
--- NOTE | 2017-01-24 14:23 | CP.PCM.PN ---
Subjective - Date & Time of Evaluation Date of Evaluation: 01/24/17 Time of Evaluation: 14:21 - Subjective Subjective: 72 year old male was seen at bedside this morning 5 days s/p wound debridement secondary to right ankle gangrene. Patient NAD. AAOx3. Patient states that his pain comes and goes and is controlled well with the oral pain medication. Denies any n/v/f/c/sob/cp. Objective - Vital Signs/Intake and Output Vital Signs (last 24 hours): Temp Pulse Resp BP Pulse Ox 97.7 F 76 20 157/88 H 97 01/24/17 08:10 01/24/17 08:10 01/24/17 08:10 01/24/17 08:10 01/24/17 08:10 Intake and Output: 01/24/17 01/24/17 06:59 18:59 Intake Total 800 Balance 800 - Medications Medications: Current Medications Acetaminophen (Tylenol 325mg Tab) 650 mg PO Q6 PRN PRN Reason: Fever >100.4 F Last Admin: 01/23/17 15:04 Dose: 650 mg Amlodipine Besylate (Norvasc) 10 mg PO DAILY [facility] Last Admin: 01/24/17 09:25 Dose: 10 mg Famotidine (Pepcid) 20 mg PO DAILY [facility] Last Admin: 01/24/17 09:25 Dose: 20 mg Heparin Sodium (Porcine) (Heparin) 5,000 units SC Q12 [facility] Last Admin: 01/24/17 09:25 Dose: 5,000 units Clindamycin Phosphate 600 mg/ (Sodium Chloride) 54 mls @ 100 mls/hr IVPB Q8H [facility] Last Admin: 01/24/17 10:46 Dose: 100 mls/hr Lactated Ringer's (Lactated Ringer's) 1,000 mls @ 100 mls/hr IV .Q10H [facility] Last Admin: 01/23/17 18:20 Dose: Not Given Cefepime HCl 1 gm/ Sodium (Chloride) 100 mls @ 100 mls/hr IVPB Q12H [facility] Losartan Potassium (Cozaar) 100 mg PO DAILY [facility] Last Admin: 01/24/17 09:25 Dose: 100 mg Metoprolol Tartrate (Lopressor) 50 mg PO BID [facility] Last Admin: 01/24/17 09:25 Dose: 50 mg Ondansetron HCl (Zofran Inj) 4 mg IVP DAILY@ONCE PRN PRN Reason: Nausea/Vomiting Oxycodone/Acetaminophen (Percocet 5/325 Mg Tab) 1 tab PO Q4H PRN PRN Reason: Pain, moderate (4-7) Stop: 01/26/17 22:04 Last Admin: 01/23/17 22:23 Dose: 1 tab - Labs Labs: 01/24/17 11:06 01/24/17 11:06 - Constitutional Appears: Well, Non-toxic, No Acute Distress - Extremities Exam Additional comments: Right lower extremity focused exam: VASC: DP and PT pulses are palpable 2/4; Temperature gradient warm to cool from proximal to distal, PROOF SORTER <3 seconds to all digits. No edema noted DERM: posterolateral right ankle wound measures approximately 6.5 cm x 4.5 cm x 0.3 cm with fibrogranular base, Achilles tendon as well as the peroneal tendons exposed posterior-lateral and laterally respectively, no purulence, no malodor, no active drainage, no tunneling, no undermining, no ascending cellulitis NEURO: Protective sensation is grossly intact ORTHO: Tenderness noted to palpation surrounding wound - Neurological Exam Neurological Exam: Alert, Awake, Oriented x3 - Psychiatric Exam Psychiatric exam: Normal Affect, Normal Mood Assessment and Plan - Assessment and Plan (Free Text) Assessment: 72 year old male 5 days s/p wound debridement secondary to right ankle gangrene Plan: Patient examined and evaluated Discussed in detail with Dr. Giposn Charts, labs and vitals reviewed;afebrile, WBC 6.5 Dressing changed with copious amount of H2O2, Saline, wet to dry 4x4, xeroform, ABD, Kerlix Patient tolerated the dressing change well without any pain or incident operative cultures show no growth Vascular team consulted - CT angio: Unremarkable CT angio of abdominal pelvis, good lower extremity runoff Patient to remain on IV abx as per ID Podiatry will perform daily dressing changes and will continue to follow patient while in house
[2017-01-24] MEDS: Oxycodone/Acetaminophen 5/325 mg Tab PO PRN ×2 (14:53→21:35)
[2017-01-24] MEDS: Cefepime 1 GM in Sodium Chloride 0.9% 100 ML IVPB SCH (17:41)
[2017-01-25] MEDS: Cefepime 1 GM in Sodium Chloride 0.9% 100 ML IVPB SCH ×2 (05:30→19:04)
[2017-01-25 06:31] LABS: BASO % 0.6 % (0.0-2.0); EOS # 0.2 K/uL (0.0-0.7); EOS % 3.8 % (0.0-4.0); HEMATOCRIT 38.1 % (35.0-51.0); LYMPH # 1.5 K/uL (1.0-4.3); LYMPH % 25.1 % (20.0-40.0); MEAN CELL VOLUME 82.3 fL (80.0-94.0); MEAN CORPUSCULAR HGB CONC 32.8 g/dL (33.0-37.0); MEAN PLATELET VOLUME 8.7 fL (7.2-11.7); MONO # 1.1 K/uL (0.0-0.8); RED CELL DISTRIBUTION WIDTH 13.3 % (11.5-14.5); WHITE BLOOD COUNT 5.9 K/uL (4.8-10.8)
[2017-01-25 07:25] LABS: CHLORIDE 101 mmol/L (98-107); POTASSIUM 3.4 mmol/L (3.6-5.2); SODIUM 137 mmol/L (132-148)
[2017-01-25 07:27] LABS: ALB/GLOB RATIO 0.9 (1.0-2.1); AST/SGOT 22 U/L (17-59); BILIRUBIN,TOTAL 0.5 mg/dL (0.2-1.3); BLOOD UREA NITROGEN 14 mg/dL (9-20); CARBON DIOXIDE 25 mmol/L (22-30); GFR AFRICAN-AMERICAN > 60
[2017-01-25 07:28] LABS: ALKALINE PHOSPHATASE 57 U/L (38-126); ALT/SGPT 33 U/L (21-72); CALCIUM 8.8 mg/dl (8.6-10.4); GLUCOSE,RANDOM 86 mg/dL (75-110)
--- NOTE | 2017-01-25 09:12 | CP.PCM.PN ---
Subjective - Date & Time of Evaluation Date of Evaluation: 01/25/17 Time of Evaluation: 09:12 - Subjective Subjective: Medicine Note for Dr. Paredes's Service Pt seen and examined at bedside. He reports that he felt well overnight and that he does not have any acute complaints. He continues to have RLE pain but states that this is well controlled with his current pain medications. No acute events overnight as per nursing. Pt was set to have PICC line placed yesterday afternoon, however he declined having the procedure done yesterday because he wanted to discuss it with his family first. In speaking with him this morning he is accepting of having cath placement today and states that he would like to pursue home antibiotic treatments following discharge. Objective - Vital Signs/Intake and Output Vital Signs (last 24 hours): Temp Pulse Resp BP Pulse Ox 98.2 F 79 20 167/89 H 98 01/25/17 07:57 01/25/17 07:57 01/25/17 07:57 01/25/17 07:57 01/25/17 07:57 Intake and Output: 01/25/17 01/25/17 06:59 18:59 Output Total 400 Balance -400 - Medications Medications: Current Medications Acetaminophen (Tylenol 325mg Tab) 650 mg PO Q6 PRN PRN Reason: Fever >100.4 F Last Admin: 01/23/17 15:04 Dose: 650 mg Amlodipine Besylate (Norvasc) 10 mg PO DAILY [facility] Last Admin: 01/24/17 09:25 Dose: 10 mg Famotidine (Pepcid) 20 mg PO DAILY [facility] Last Admin: 01/24/17 09:25 Dose: 20 mg Heparin Sodium (Porcine) (Heparin) 5,000 units SC Q12 [facility] Last Admin: 01/24/17 21:25 Dose: 5,000 units Clindamycin Phosphate 600 mg/ (Sodium Chloride) 54 mls @ 100 mls/hr IVPB Q8H [facility] Last Admin: 01/25/17 02:44 Dose: 100 mls/hr Cefepime HCl 1 gm/ Sodium (Chloride) 100 mls @ 100 mls/hr IVPB Q12H [facility] Last Admin: 01/25/17 05:30 Dose: 100 mls/hr Vancomycin/Sodium Chloride (Vancocin) 1 gm in 200 mls @ 133.333 mls/hr IVPB Q12H [facility] Stop: 01/30/17 09:01 Losartan Potassium (Cozaar) 100 mg PO DAILY [facility] Last Admin: 01/24/17 09:25 Dose: 100 mg Metoprolol Tartrate (Lopressor) 50 mg PO BID [facility] Last Admin: 01/24/17 17:18 Dose: 50 mg Ondansetron HCl (Zofran Inj) 4 mg IVP DAILY@ONCE PRN PRN Reason: Nausea/Vomiting Oxycodone/Acetaminophen (Percocet 5/325 Mg Tab) 1 tab PO Q4H PRN PRN Reason: Pain, moderate (4-7) Stop: 01/26/17 22:04 Last Admin: 01/24/17 21:35 Dose: 1 tab - Labs Labs: 01/25/17 06:07 01/25/17 06:07 - Constitutional Appears: No Acute Distress - Head Exam Head Exam: ATRAUMATIC, NORMAL INSPECTION - Eye Exam Eye Exam: Normal appearance - ENT Exam ENT Exam: Mucous Membranes Moist - Respiratory Exam Respiratory Exam: Clear to Ausculation Bilateral, NORMAL BREATHING PATTERN - Cardiovascular Exam Cardiovascular Exam: REGULAR RHYTHM - GI/Abdominal Exam GI & Abdominal Exam: Soft. absent: Tenderness - Extremities Exam Additional comments: wound dressing on RLE is c/d/i - Neurological Exam Neurological Exam: Alert, Awake, Oriented x3 - Skin Skin Exam: Dry, Warm Assessment and Plan - Assessment and Plan (Free Text) Plan: Right ankle gangrene -S/P Right ankle wound debridement POD #6 -Dr. Garcia Podiatry: Follow podiatry recommendations Consideration for skin graft requiring plastic surgery consult Will need to consider transfer to different facility as we do not have plastics here -ID recommendations for antibiotics- 6weeks IV abx Continue IV clindamycin and Cefepime; Started 01/19 Started on Vancomycin 01/25 PICC line reordered for IR placement- pt in agreement with PICC requirement Pt would like to be discharged home with abx administered at home with assistance. manager analytical is working to see cost of at home treatment vs [facility] treatment. CM will discuss with patient. -wound culture RLE- collected 01/19/17 Stenotrophomonas Maltophilia Coagulase negative staph -f/u MRI RLE -WBC 01/25: 5.9 PVD -Vascular surgery consult, Dr. Brown help appreciated -CT showed unremarkable abdomen pelvis. 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 RLE with moderate plaque in the anterior tibial artery which is believed to be patent ( see report for details). -No surgical intervention indicated at this time per surgery team HTN -Norvasc 10mg po -Cozaar 100mg po -Metoprolol 50mg po bid -Hold HCTZ due to increased creatinine (Cr decreased from 1.9 to 1.5) -f/u am labs Prophylactic measure -Pepcid -Heparin 5000 U SC Q12 -Tylenol -Zofran Case discussed with Dr. Paredes. All management as per Dr. Paredes.
--- NOTE | 2017-01-25 10:12 | PN ---
DATE: 01/25/2017 SUBJECTIVE: The patient is seen at bedside. Dressing changed. There is a significant wide defect on the right lateral aspect, status post two debridements around the periphery of the darkened area, which potentially could turn into more ischemic tissue. On the phone with Dr. Diamond this morning agreed to start the patient on vancomycin 1 g q. 12 hours in addition to his other antibiotic. The patient will go for an MRI and PICC line insertion today for continued antibiotics and will be potentially discharged to subacute facility in which I can follow him up. Now with the new antibiotic added, I will be awaiting the response of the granulation and healing tissue. Jim Melvin DPM
[2017-01-25] MEDS: Oxycodone/Acetaminophen 5/325 mg Tab PO PRN (10:37)
[2017-01-25] MEDS: Vancomycin 1 gm/NS 200 ml 1 GM/200 ML BAG IVPB SCH ×2 (10:38→20:19)
--- NOTE | 2017-01-25 11:25 | MRI ---
PROCEDURE: MRI Right Ankle HISTORY: Pain. Right ankle wound, status post ulcer surgery 12/27 COMPARISON: Comparison is made to the previous CTA of the lower extremities dated 01/20/2017 previous x-ray of the right ankle dated 12/24/2016. TECHNIQUE: Multiecho multiplanar sequences were performed through the right ankle without the use of intravenous contrast. FINDINGS: ANTERIOR EXTENSOR TENDONS: Mild increased signal at the anterior extensor tendons suggestive of mild tendinopathy.. MEDIAL FLEXOR TENDONS: Normal. PERONEAL TENDONS: There is mild to moderate diffuse increased signal at the peroneal tendon suggestive of [id number] tendinopathy.. ANTERIOR INFERIOR TIBIOFIBULAR (SYNDESMOSIS): Discontinuity and abnormal signal seen at the anterior inferior tibiofibular ligament suggestive of partial to full thickness tear. Findings could be due to prior/old trauma.. POSTERIOR INFERIOR TIBIOFIBULAR (SYNDESMOSIS): No evidence of acute injury.. ANTERIOR TALOFIBULAR LIGAMENT: Mild diffuse increased signal suggestive of grade 1 sprain. POSTERIOR TALOFIBULAR LIGAMENT: Mild diffuse increased signal also suggestive of grade 1 mild sprain P. PLANTAR FASCIA: Normal. SINUS TARSI: Small amount of fluid seen at the sinus tarsi. ACHILLES TENDON: There is heterogeneous increased signal seen at the distal portion of the Achilles tendon consistent with moderate to severe tendinopathy.. DELTOID LIGAMENT COMPLEX - DEEP: Normal. CALCANEOFIBULAR LIGAMENT: No evidence of acute injury.. SPRING (PLANTAR CALCANEO-NAVICULAR) LIGAMENT: No evidence of acute injury.. BONES: There is mild bone marrow edema at the posterior aspect of the calcaneus bone likely reactive from the adjacent inflammatory changes in the posterior ankle and heel. Bone marrow abnormal signal and small cortical erosion seen at the lateral aspect of the distal fibula. Findings may represent bone marrow reaction versus an early osteomyelitis. CARTILAGE: Foci of cartilage defects at the ankle joint likely due to arthritic degenerative changes.. JOINT FLUID: Small joint effusion seen.. MUSCLES: Diffuse abnormal increased signal in the distal flexor muscles at the posterior lower leg.. Findings suggestive of myositis involving mainly the distal flexor muscles. OTHER FINDINGS: There is a large skin ulcer at the posterior lateral aspect of the distal leg and extending slightly to the lateral aspect of the heel. There are inflammatory changes and subcutaneous soft tissue edema seen also at the posterior lateral aspect of the distal leg. No definite evidence of discrete fluid collection.. IMPRESSION: Heterogeneous mild bone marrow edema at the mid and posterior aspect of the calcaneus bone likely represent bone marrow reaction from adjacent inflammatory changes in the soft tissue at the posterior aspect of the ankle. Soft tissue inflammatory changes and edema at the posterior lateral aspect of the ankle. Achillis tendon and peroneal tendon abnormal signal consistent with tendinopathy. Small ankle joint effusion. Bone marrow signal and small erosion seen at the lateral aspect of the distal fibula. The possibility of osteomyelitis is not totally excluded..
--- NOTE | 2017-01-25 11:31 | CP.PCM.PN ---
Subjective - Date & Time of Evaluation Date of Evaluation: 01/25/17 Time of Evaluation: 11:28 - Subjective Subjective: still has infected ulcer heale seen and cleaned and dressing changed today by dr coffman still on iv antibiotics Objective - Vital Signs/Intake and Output Vital Signs (last 24 hours): Temp Pulse Resp BP Pulse Ox 98.2 F 79 20 167/89 H 98 01/25/17 07:57 01/25/17 07:57 01/25/17 07:57 01/25/17 07:57 01/25/17 07:57 Intake and Output: 01/25/17 01/25/17 06:59 18:59 Output Total 400 Balance -400 - Medications Medications: Current Medications Acetaminophen (Tylenol 325mg Tab) 650 mg PO Q6 PRN PRN Reason: Fever >100.4 F Last Admin: 01/23/17 15:04 Dose: 650 mg Amlodipine Besylate (Norvasc) 10 mg PO DAILY [facility] Last Admin: 01/25/17 10:36 Dose: 10 mg Famotidine (Pepcid) 20 mg PO DAILY [facility] Last Admin: 01/25/17 10:36 Dose: 20 mg Heparin Sodium (Porcine) (Heparin) 5,000 units SC Q12 [facility] Last Admin: 01/25/17 10:36 Dose: 5,000 units Hydralazine HCl (Apresoline) 12.5 mg PO BID [facility] Clindamycin Phosphate 600 mg/ (Sodium Chloride) 54 mls @ 100 mls/hr IVPB Q8H [facility] Last Admin: 01/25/17 02:44 Dose: 100 mls/hr Cefepime HCl 1 gm/ Sodium (Chloride) 100 mls @ 100 mls/hr IVPB Q12H [facility] Last Admin: 01/25/17 05:30 Dose: 100 mls/hr Vancomycin/Sodium Chloride (Vancocin) 1 gm in 200 mls @ 133.333 mls/hr IVPB Q12H [facility] Stop: 01/30/17 09:01 Last Admin: 01/25/17 10:38 Dose: 133.333 mls/hr Losartan Potassium (Cozaar) 100 mg PO DAILY [facility] Last Admin: 01/25/17 10:36 Dose: 100 mg Metoprolol Tartrate (Lopressor) 50 mg PO BID [facility] Last Admin: 01/24/17 17:18 Dose: 50 mg Ondansetron HCl (Zofran Inj) 4 mg IVP DAILY@ONCE PRN PRN Reason: Nausea/Vomiting Oxycodone/Acetaminophen (Percocet 5/325 Mg Tab) 1 tab PO Q4H PRN PRN Reason: Pain, moderate (4-7) Stop: 01/26/17 22:04 Last Admin: 01/25/17 10:37 Dose: 1 tab - Labs Labs: 01/25/17 06:07 01/25/17 06:07 - Constitutional Appears: Non-toxic - Head Exam Head Exam: NORMAL INSPECTION - Eye Exam Eye Exam: Normal appearance Pupil Exam: NORMAL ACCOMODATION - ENT Exam ENT Exam: Mucous Membranes Moist - Neck Exam Neck Exam: Normal Inspection - Respiratory Exam Respiratory Exam: Clear to Ausculation Bilateral - Cardiovascular Exam Cardiovascular Exam: REGULAR RHYTHM - GI/Abdominal Exam GI & Abdominal Exam: Normal Bowel Sounds - Rectal Exam Rectal Exam: NORMAL INSPECTION - Exam Exam: NORMAL INSPECTION External exam: NORMAL EXTERNAL EXAM - Extremities Exam Extremities Exam: Normal Capillary Refill - Back Exam Back Exam: NORMAL INSPECTION - Neurological Exam Neurological Exam: Oriented x3 - Psychiatric Exam Psychiatric exam: Normal Mood - Skin Skin Exam: Dry, Pallor Assessment and Plan - Assessment and Plan (Free Text) Assessment: infected heel ulcer htn Plan: add hydralazine cont as per orders
[2017-01-25] MEDS: hydrALAZINE 12.5 mg Tab PO SCH ×2 (12:04→20:19)
--- NOTE | 2017-01-25 12:06 | CP.PCM.PN ---
Subjective - Date & Time of Evaluation Date of Evaluation: 01/25/17 Time of Evaluation: 08:45 - Subjective Subjective: 72 year old male was seen at bedside this morning 6 days s/p wound debridement secondary to right ankle gangrene. Patient NAD. AAOx3. Patient states that his pain comes and goes and is controlled well with the oral pain medication. Denies any n/v/f/c/sob/cp. Objective - Vital Signs/Intake and Output Vital Signs (last 24 hours): Temp Pulse Resp BP Pulse Ox 98.2 F 80 20 156/81 H 98 01/25/17 07:57 01/25/17 12:05 01/25/17 07:57 01/25/17 12:05 01/25/17 07:57 Intake and Output: 01/25/17 01/25/17 06:59 18:59 Output Total 400 Balance -400 - Medications Medications: Current Medications Acetaminophen (Tylenol 325mg Tab) 650 mg PO Q6 PRN PRN Reason: Fever >100.4 F Last Admin: 01/23/17 15:04 Dose: 650 mg Amlodipine Besylate (Norvasc) 10 mg PO DAILY [facility] Last Admin: 01/25/17 10:36 Dose: 10 mg Famotidine (Pepcid) 20 mg PO DAILY [facility] Last Admin: 01/25/17 10:36 Dose: 20 mg Heparin Sodium (Porcine) (Heparin) 5,000 units SC Q12 [facility] Last Admin: 01/25/17 10:36 Dose: 5,000 units Hydralazine HCl (Apresoline) 12.5 mg PO BID [facility] Last Admin: 01/25/17 12:04 Dose: 12.5 mg Clindamycin Phosphate 600 mg/ (Sodium Chloride) 54 mls @ 100 mls/hr IVPB Q8H [facility] Last Admin: 01/25/17 12:04 Dose: 100 mls/hr Cefepime HCl 1 gm/ Sodium (Chloride) 100 mls @ 100 mls/hr IVPB Q12H [facility] Last Admin: 01/25/17 05:30 Dose: 100 mls/hr Vancomycin/Sodium Chloride (Vancocin) 1 gm in 200 mls @ 133.333 mls/hr IVPB Q12H [facility] Stop: 01/30/17 09:01 Last Admin: 01/25/17 10:38 Dose: 133.333 mls/hr Losartan Potassium (Cozaar) 100 mg PO DAILY [facility] Last Admin: 01/25/17 10:36 Dose: 100 mg Metoprolol Tartrate (Lopressor) 50 mg PO BID [facility] Last Admin: 01/25/17 12:03 Dose: 50 mg Ondansetron HCl (Zofran Inj) 4 mg IVP DAILY@ONCE PRN PRN Reason: Nausea/Vomiting Oxycodone/Acetaminophen (Percocet 5/325 Mg Tab) 1 tab PO Q4H PRN PRN Reason: Pain, moderate (4-7) Stop: 01/26/17 22:04 Last Admin: 01/25/17 10:37 Dose: 1 tab - Labs Labs: 01/25/17 06:07 01/25/17 06:07 - Constitutional Appears: Non-toxic, No Acute Distress - Extremities Exam Additional comments: dressing c/d/i-changed this morning by Dr. Garcia - Neurological Exam Neurological Exam: Alert, Awake, Oriented x3 - Psychiatric Exam Psychiatric exam: Normal Affect, Normal Mood Assessment and Plan - Assessment and Plan (Free Text) Assessment: 72 year old male 6 days s/p wound debridement secondary to right ankle gangrene Plan: Patient examined and evaluated Discussed in detail with Dr. Gipson Charts, labs and vitals reviewed;afebrile, WBC 5.9 ESR pending operative cultures-stenotrophomonas maltophilia, coagulase neg staph Vascular team consulted - CT angio: Unremarkable CT angio of abdominal pelvis, good lower extremity runoff Patient to remain on IV abx as per ID Patient to be D/C to [facility] for continuation of IV abx Podiatry will perform daily dressing changes and will continue to follow patient while in house
--- NOTE | 2017-01-25 13:30 | PCM.SURG1 ---
Surgeon's Initial Post Op Note - Surgeon's Notes Surgeon: Jacob Wilson MD Watch Inspector Final Movement: None Type of Anesthesia: Local Pre-Operative Diagnosis: Poor venous access Operative Findings: Patent right basilic vein. Post-Operative Diagnosis: Poor venous access Operation Performed: Single lumen picc placement right basilic vein, 37 cm. Tip in SVC. Specimen/Specimens Removed: None Estimated Blood Loss: EBL {In ML}: 2 Blood Products Given: N/A Drains Used: No Drains Post-Op Condition: Fair Date of Surgery/Procedure: 01/25/17 Time of Surgery/Procedure: 13:30
[2017-01-26] MEDS: Cefepime 1 GM in Sodium Chloride 0.9% 100 ML IVPB SCH ×2 (05:30→18:22)
[2017-01-26 07:32] LABS: BASO % 0.5 % (0.0-2.0); CHLORIDE 103 mmol/L (98-107); EOS # 0.2 K/uL (0.0-0.7); EOS % 2.7 % (0.0-4.0); HEMATOCRIT 37.4 % (35.0-51.0); LYMPH # 1.5 K/uL (1.0-4.3); LYMPH % 24.5 % (20.0-40.0); MEAN CELL VOLUME 82.1 fL (80.0-94.0); MEAN CORPUSCULAR HEMOGLOBIN 26.6 pg (27.0-31.0); MEAN CORPUSCULAR HGB CONC 32.4 g/dL (33.0-37.0); MEAN PLATELET VOLUME 8.5 fL (7.2-11.7); MONO % 15.6 % (0.0-10.0); NRBC % 0.1 % (0.0-2.0); POTASSIUM 3.7 mmol/L (3.6-5.2); RED CELL DISTRIBUTION WIDTH 13.9 % (11.5-14.5); SODIUM 138 mmol/L (132-148); WHITE BLOOD COUNT 6.3 K/uL (4.8-10.8)
[2017-01-26 07:34] LABS: BILIRUBIN,TOTAL 0.6 mg/dL (0.2-1.3); GFR AFRICAN-AMERICAN > 60
[2017-01-26 07:35] LABS: ALB/GLOB RATIO 0.9 (1.0-2.1); ALKALINE PHOSPHATASE 51 U/L (38-126); ALT/SGPT 38 U/L (21-72); AST/SGOT 25 U/L (17-59); BLOOD UREA NITROGEN 12 mg/dL (9-20); CARBON DIOXIDE 25 mmol/L (22-30); GLUCOSE,RANDOM 97 mg/dL (75-110); TOTAL PROTEIN 6.9 g/dL (6.3-8.3)
[2017-01-26 07:36] LABS: CALCIUM 8.8 mg/dl (8.6-10.4)
[2017-01-26] MEDS: Vancomycin 1 gm/NS 200 ml 1 GM/200 ML BAG IVPB SCH ×2 (09:00→20:48)
--- NOTE | 2017-01-26 09:26 | CP.PCM.PN ---
Subjective - Date & Time of Evaluation Date of Evaluation: 01/26/17 Time of Evaluation: 09:25 - Subjective Subjective: 72 year old male was seen at bedside this morning with attending, Dr. Garcia , 7 days s/p wound debridement secondary to right ankle gangrene. Patient NAD. AAOx3. Patient states that his pain comes and goes and is controlled well with the oral pain medication. Denies any n/v/f/c/sob/cp. Objective - Vital Signs/Intake and Output Vital Signs (last 24 hours): Temp Pulse Resp BP Pulse Ox 98.2 F 80 20 142/83 96 01/26/17 08:58 01/26/17 08:58 01/26/17 08:58 01/25/17 15:55 01/25/17 15:55 Intake and Output: 01/26/17 01/26/17 06:59 18:59 Output Total 100 Balance -100 - Medications Medications: Current Medications Acetaminophen (Tylenol 325mg Tab) 650 mg PO Q6 PRN PRN Reason: Fever >100.4 F Last Admin: 01/23/17 15:04 Dose: 650 mg Amlodipine Besylate (Norvasc) 10 mg PO DAILY [facility] Last Admin: 01/25/17 10:36 Dose: 10 mg Famotidine (Pepcid) 20 mg PO DAILY [facility] Last Admin: 01/25/17 10:36 Dose: 20 mg Heparin Sodium (Porcine) (Heparin) 5,000 units SC Q12 [facility] Last Admin: 01/25/17 21:30 Dose: 5,000 units Hydralazine HCl (Apresoline) 12.5 mg PO BID [facility] Last Admin: 01/25/17 20:19 Dose: 12.5 mg Clindamycin Phosphate 600 mg/ (Sodium Chloride) 54 mls @ 100 mls/hr IVPB Q8H [facility] Last Admin: 01/26/17 03:16 Dose: 100 mls/hr Cefepime HCl 1 gm/ Sodium (Chloride) 100 mls @ 100 mls/hr IVPB Q12H [facility] Last Admin: 01/26/17 05:30 Dose: 100 mls/hr Vancomycin/Sodium Chloride (Vancocin) 1 gm in 200 mls @ 133.333 mls/hr IVPB Q12H [facility] Stop: 01/30/17 09:01 Last Admin: 01/26/17 09:00 Dose: 133.333 mls/hr Losartan Potassium (Cozaar) 100 mg PO DAILY [facility] Last Admin: 01/25/17 10:36 Dose: 100 mg Metoprolol Tartrate (Lopressor) 50 mg PO BID [facility] Last Admin: 01/25/17 19:04 Dose: 50 mg Ondansetron HCl (Zofran Inj) 4 mg IVP DAILY@ONCE PRN PRN Reason: Nausea/Vomiting Oxycodone/Acetaminophen (Percocet 5/325 Mg Tab) 1 tab PO Q4H PRN PRN Reason: Pain, moderate (4-7) Stop: 01/26/17 22:04 Last Admin: 01/25/17 10:37 Dose: 1 tab - Labs Labs: 01/26/17 07:00 01/26/17 07:00 - Constitutional Appears: Non-toxic, No Acute Distress - Extremities Exam Additional comments: Right lower extremity focused exam: VASC: DP and PT pulses are palpable 2/4; Temperature gradient warm to cool from proximal to distal, PATTERN REPAIR PERSON <3 seconds to all digits. No edema noted DERM: posterolateral right ankle wound measures approximately 6.5 cm x 4.5 cm x 0.3 cm with fibrogranular base, Achilles tendon as well as the peroneal tendons exposed posterior-lateral and laterally respectively, no purulence, no malodor, no active drainage, no tunneling, no undermining, no ascending cellulitis NEURO: Protective sensation is grossly intact ORTHO: Tenderness noted to palpation surrounding wound - Neurological Exam Neurological Exam: Alert, Awake, Oriented x3 - Psychiatric Exam Psychiatric exam: Normal Affect, Normal Mood Assessment and Plan - Assessment and Plan (Free Text) Assessment: 72 year old male 7 days s/p wound debridement secondary to right ankle gangrene Plan: Patient examined and evaluated with Dr. Gipson Charts, labs and vitals reviewed;afebrile, WBC 6.3 Dressing changed with copious amount of H2O2, Saline, xeroform, ABD, Kerlix Patient tolerated the dressing change well without any pain or incident operative cultures show no growth Vascular team consulted - CT angio: Unremarkable CT angio of abdominal pelvis, good lower extremity runoff Patient to remain on IV abx as per ID Podiatry will perform daily dressing changes and will continue to follow patient while in house Upon D/C patient to follow up with Dr. Garcia
[2017-01-26] MEDS: Oxycodone/Acetaminophen 5/325 mg Tab PO PRN (09:31)
[2017-01-26] MEDS: hydrALAZINE 12.5 mg Tab PO SCH ×2 (10:20→18:21)
--- NOTE | 2017-01-26 11:04 | CP.PCM.PN ---
Subjective - Date & Time of Evaluation Date of Evaluation: 01/26/17 Time of Evaluation: 09:00 - Subjective Subjective: PGY3 on medicine Dr. Paredes service: Pt seen and examined at bedside this morning. Pt has no acute complaints at the moment. RLE pain controlled with medication. Pt is acceptive of rehab. Objective - Vital Signs/Intake and Output Vital Signs (last 24 hours): Temp Pulse Resp BP Pulse Ox 98.2 F 80 20 142/83 96 01/26/17 08:58 01/26/17 08:58 01/26/17 08:58 01/25/17 15:55 01/25/17 15:55 Intake and Output: 01/26/17 01/26/17 06:59 18:59 Output Total 100 Balance -100 - Medications Medications: Current Medications Acetaminophen (Tylenol 325mg Tab) 650 mg PO Q6 PRN PRN Reason: Fever >100.4 F Last Admin: 01/23/17 15:04 Dose: 650 mg Amlodipine Besylate (Norvasc) 10 mg PO DAILY [facility] Last Admin: 01/26/17 09:31 Dose: 10 mg Famotidine (Pepcid) 20 mg PO DAILY [facility] Last Admin: 01/26/17 09:31 Dose: 20 mg Heparin Sodium (Porcine) (Heparin) 5,000 units SC Q12 [facility] Last Admin: 01/26/17 09:41 Dose: 5,000 units Hydralazine HCl (Apresoline) 12.5 mg PO BID [facility] Last Admin: 01/25/17 20:19 Dose: 12.5 mg Clindamycin Phosphate 600 mg/ (Sodium Chloride) 54 mls @ 100 mls/hr IVPB Q8H [facility] Last Admin: 01/26/17 03:16 Dose: 100 mls/hr Cefepime HCl 1 gm/ Sodium (Chloride) 100 mls @ 100 mls/hr IVPB Q12H [facility] Last Admin: 01/26/17 05:30 Dose: 100 mls/hr Vancomycin/Sodium Chloride (Vancocin) 1 gm in 200 mls @ 133.333 mls/hr IVPB Q12H [facility] Stop: 01/30/17 09:01 Last Admin: 01/26/17 09:00 Dose: 133.333 mls/hr Losartan Potassium (Cozaar) 100 mg PO DAILY [facility] Last Admin: 01/26/17 09:31 Dose: 100 mg Metoprolol Tartrate (Lopressor) 50 mg PO BID [facility] Last Admin: 01/26/17 09:37 Dose: 50 mg Ondansetron HCl (Zofran Inj) 4 mg IVP DAILY@ONCE PRN PRN Reason: Nausea/Vomiting Oxycodone/Acetaminophen (Percocet 5/325 Mg Tab) 1 tab PO Q4H PRN PRN Reason: Pain, moderate (4-7) Stop: 01/26/17 22:04 Last Admin: 01/26/17 09:31 Dose: 1 tab - Labs Labs: 01/26/17 07:00 01/26/17 07:00 - Constitutional Appears: Non-toxic, No Acute Distress - Head Exam Head Exam: NORMOCEPHALIC - Eye Exam Eye Exam: Normal appearance Pupil Exam: NORMAL ACCOMODATION - Respiratory Exam Respiratory Exam: Clear to Ausculation Bilateral, NORMAL BREATHING PATTERN. absent: Wheezes - Cardiovascular Exam Cardiovascular Exam: REGULAR RHYTHM, +S1, +S2. absent: Gallop, Rubs - GI/Abdominal Exam GI & Abdominal Exam: Soft, Normal Bowel Sounds - Extremities Exam Additional comments: RLE dressing C/D/I - Neurological Exam Neurological Exam: Alert, Awake, Oriented x3 - Psychiatric Exam Psychiatric exam: Normal Mood Assessment and Plan - Assessment and Plan (Free Text) Assessment: Right ankle gangrene -S/P Right ankle wound debridement POD #7 -Dr. Garcia Podiatry: Follow podiatry recommendations Consideration for skin graft requiring plastic surgery consult Will need to consider transfer to different facility as we do not have plastics here [place] for discharge, podiatry team will continue to follow in rehab -ID recommendations for antibiotics- 6weeks IV abx Continue IV clindamycin and Cefepime; Started 01/19 Started on Vancomycin 01/[address] Per [address] Diamond, will need to continue Vancomycin and Cefepime in rehab for total of 6 weeks -wound culture RLE- collected 01/19/17 Stenotrophomonas Maltophilia Coagulase negative staph -WBC 01/25: 5.9 -MRI showed possible osteomyelitis in distal fibula per report PVD -Vascular surgery consult, Dr. Brown help appreciated -CT showed unremarkable abdomen pelvis. 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 RLE with moderate plaque in the anterior tibial artery which is believed to be patent ( see report for details). -No surgical intervention indicated at this time per surgery team HTN -Norvasc 10mg po -Cozaar 100mg po -Metoprolol 50mg po bid Prophylactic measure -Pepcid -Heparin 5000 U SC Q12 -Tylenol -Zofran Case discussed with Dr. Paredes. All management as per Dr. Paredes.
--- NOTE | 2017-01-26 16:58 | CP.PCM.PN ---
Subjective - Date & Time of Evaluation Date of Evaluation: 01/26/17 Time of Evaluation: 16:55 - Subjective Subjective: pt had pic line today still has infected heele ulcer dressing changed by dr hadley today Objective - Vital Signs/Intake and Output Vital Signs (last 24 hours): Temp Pulse Resp BP Pulse Ox 98.5 F 74 20 153/85 H 97 01/26/17 16:15 01/26/17 16:15 01/26/17 16:15 01/26/17 16:15 01/26/17 16:15 Intake and Output: 01/26/17 01/26/17 06:59 18:59 Intake Total 800 Output Total 100 300 Balance -100 500 - Medications Medications: Current Medications Acetaminophen (Tylenol 325mg Tab) 650 mg PO Q6 PRN PRN Reason: Fever >100.4 F Last Admin: 01/23/17 15:04 Dose: 650 mg Amlodipine Besylate (Norvasc) 10 mg PO DAILY [facility] Last Admin: 01/26/17 09:31 Dose: 10 mg Famotidine (Pepcid) 20 mg PO DAILY [facility] Last Admin: 01/26/17 09:31 Dose: 20 mg Heparin Sodium (Porcine) (Heparin) 5,000 units SC Q12 [facility] Last Admin: 01/26/17 09:41 Dose: 5,000 units Hydralazine HCl (Apresoline) 12.5 mg PO BID [facility] Last Admin: 01/26/17 10:20 Dose: 12.5 mg Clindamycin Phosphate 600 mg/ (Sodium Chloride) 54 mls @ 100 mls/hr IVPB Q8H [facility] Last Admin: 01/26/17 11:51 Dose: 100 mls/hr Cefepime HCl 1 gm/ Sodium (Chloride) 100 mls @ 100 mls/hr IVPB Q12H [facility] Last Admin: 01/26/17 05:30 Dose: 100 mls/hr Vancomycin/Sodium Chloride (Vancocin) 1 gm in 200 mls @ 133.333 mls/hr IVPB Q12H [facility] Stop: 01/30/17 09:01 Last Admin: 01/26/17 09:00 Dose: 133.333 mls/hr Losartan Potassium (Cozaar) 100 mg PO DAILY [facility] Last Admin: 01/26/17 09:31 Dose: 100 mg Metoprolol Tartrate (Lopressor) 50 mg PO BID [facility] Last Admin: 01/26/17 09:37 Dose: 50 mg Ondansetron HCl (Zofran Inj) 4 mg IVP DAILY@ONCE PRN PRN Reason: Nausea/Vomiting Oxycodone/Acetaminophen (Percocet 5/325 Mg Tab) 1 tab PO Q4H PRN PRN Reason: Pain, moderate (4-7) Stop: 01/26/17 22:04 Last Admin: 01/26/17 09:31 Dose: 1 tab - Labs Labs: 01/26/17 07:00 01/26/17 07:00 - Constitutional Appears: Non-toxic - Head Exam Head Exam: NORMAL INSPECTION - Eye Exam Eye Exam: Normal appearance Pupil Exam: NORMAL ACCOMODATION - ENT Exam ENT Exam: Normal Exam - Respiratory Exam Respiratory Exam: Clear to Ausculation Bilateral, NORMAL BREATHING PATTERN - Cardiovascular Exam Cardiovascular Exam: REGULAR RHYTHM - GI/Abdominal Exam GI & Abdominal Exam: Normal Bowel Sounds - Exam Exam: NORMAL INSPECTION - Extremities Exam Extremities Exam: Full ROM Additional comments: dressing intact - Back Exam Back Exam: NORMAL INSPECTION - Neurological Exam Neurological Exam: Normal Gait, Oriented x3 - Psychiatric Exam Psychiatric exam: Normal Mood - Skin Skin Exam: Normal Color Assessment and Plan - Assessment and Plan (Free Text) Assessment: infected heel ulcer need to cont iv antibiotic and wound care will transfer to [facility] when bed is ready
--- NOTE | 2017-01-26 18:35 | CP.PCM.PN ---
Subjective - Date & Time of Evaluation Date of Evaluation: 01/26/17 Time of Evaluation: 09:00 - Subjective Subjective: rx adjusted vanco added wounds inspected discussed with dr Garcia Objective - Vital Signs/Intake and Output Vital Signs (last 24 hours): Temp Pulse Resp BP Pulse Ox 98.5 F 74 20 153/85 H 97 01/26/17 16:15 01/26/17 16:15 01/26/17 16:15 01/26/17 16:15 01/26/17 16:15 Intake and Output: 01/26/17 01/26/17 06:59 18:59 Intake Total 800 Output Total 100 300 Balance -100 500 - Medications Medications: Current Medications Acetaminophen (Tylenol 325mg Tab) 650 mg PO Q6 PRN PRN Reason: Fever >100.4 F Last Admin: 01/23/17 15:04 Dose: 650 mg Amlodipine Besylate (Norvasc) 10 mg PO DAILY [facility] Last Admin: 01/26/17 09:31 Dose: 10 mg Famotidine (Pepcid) 20 mg PO DAILY [facility] Last Admin: 01/26/17 09:31 Dose: 20 mg Heparin Sodium (Porcine) (Heparin) 5,000 units SC Q12 [facility] Last Admin: 01/26/17 09:41 Dose: 5,000 units Hydralazine HCl (Apresoline) 12.5 mg PO BID [facility] Last Admin: 01/26/17 18:21 Dose: 12.5 mg Clindamycin Phosphate 600 mg/ (Sodium Chloride) 54 mls @ 100 mls/hr IVPB Q8H [facility] Last Admin: 01/26/17 18:23 Dose: 100 mls/hr Cefepime HCl 1 gm/ Sodium (Chloride) 100 mls @ 100 mls/hr IVPB Q12H [facility] Last Admin: 01/26/17 18:22 Dose: 100 mls/hr Vancomycin/Sodium Chloride (Vancocin) 1 gm in 200 mls @ 133.333 mls/hr IVPB Q12H [facility] Stop: 01/30/17 09:01 Last Admin: 01/26/17 09:00 Dose: 133.333 mls/hr Losartan Potassium (Cozaar) 100 mg PO DAILY [facility] Last Admin: 01/26/17 09:31 Dose: 100 mg Metoprolol Tartrate (Lopressor) 50 mg PO BID [facility] Last Admin: 01/26/17 18:22 Dose: 50 mg Ondansetron HCl (Zofran Inj) 4 mg IVP DAILY@ONCE PRN PRN Reason: Nausea/Vomiting Oxycodone/Acetaminophen (Percocet 5/325 Mg Tab) 1 tab PO Q4H PRN PRN Reason: Pain, moderate (4-7) Stop: 01/26/17 22:04 Last Admin: 01/26/17 09:31 Dose: 1 tab - Labs Labs: 01/26/17 07:00 01/26/17 07:00 Assessment and Plan (1) Failure of outpatient treatment Status: Acute (2) HTN (hypertension) Status: Acute (3) Non-healing ulcer of ankle Status: Chronic
[2017-01-27 06:12] LABS: BASO % 0.6 % (0.0-2.0); EOS # 0.3 K/uL (0.0-0.7); EOS % 3.7 % (0.0-4.0); HEMATOCRIT 37.8 % (35.0-51.0); LYMPH # 1.6 K/uL (1.0-4.3); MEAN CELL VOLUME 82.4 fL (80.0-94.0); MEAN CORPUSCULAR HEMOGLOBIN 26.3 pg (27.0-31.0); MEAN CORPUSCULAR HGB CONC 31.9 g/dL (33.0-37.0); MEAN PLATELET VOLUME 8.5 fL (7.2-11.7); MONO # 1.1 K/uL (0.0-0.8); MONO % 15.5 % (0.0-10.0); RED CELL DISTRIBUTION WIDTH 13.8 % (11.5-14.5); WHITE BLOOD COUNT 7.1 K/uL (4.8-10.8)
[2017-01-27 06:32] LABS: ALKALINE PHOSPHATASE 53 U/L (38-126); ALT/SGPT 40 U/L (21-72); AST/SGOT 33 U/L (17-59); BILIRUBIN,TOTAL 0.4 mg/dL (0.2-1.3); BLOOD UREA NITROGEN 13 mg/dL (9-20); CARBON DIOXIDE 24 mmol/L (22-30); CHLORIDE 103 mmol/L (98-107); GFR AFRICAN-AMERICAN > 60; GLUCOSE,RANDOM 95 mg/dL (75-110); POTASSIUM 3.8 mmol/L (3.6-5.2); SODIUM 137 mmol/L (132-148); TOTAL PROTEIN 6.8 g/dL (6.3-8.3)
[2017-01-27 06:39] LABS: ALB/GLOB RATIO 0.9 (1.0-2.1)
--- NOTE | 2017-01-27 09:05 | CP.PCM.PN ---
Subjective - Date & Time of Evaluation Date of Evaluation: 01/27/17 Time of Evaluation: 09:04 - Subjective Subjective: Medicine Note for Dr. Paredes's Service Pt seen and examined at bedside. He states that he feels well today and does not express any acute complaints. ROS was discussed with the patient and he denied any symptoms at this time. He does continue to have pain in the RLE that he describes as mild and tolerable; the pain is responsive to medications. Objective - Vital Signs/Intake and Output Vital Signs (last 24 hours): Temp Pulse Resp BP Pulse Ox 98.6 F 82 20 151/95 H 99 01/27/17 07:05 01/27/17 07:05 01/27/17 07:05 01/27/17 07:05 01/27/17 07:05 Intake and Output: 01/27/17 01/27/17 06:59 18:59 Intake Total 1050 Balance 1050 - Medications Medications: Current Medications Acetaminophen (Tylenol 325mg Tab) 650 mg PO Q6 PRN PRN Reason: Fever >100.4 F Last Admin: 01/23/17 15:04 Dose: 650 mg Amlodipine Besylate (Norvasc) 10 mg PO DAILY [facility] Last Admin: 01/26/17 09:31 Dose: 10 mg Famotidine (Pepcid) 20 mg PO DAILY [facility] Last Admin: 01/26/17 09:31 Dose: 20 mg Hydralazine HCl (Apresoline) 12.5 mg PO BID [facility] Last Admin: 01/26/17 18:21 Dose: 12.5 mg Vancomycin/Sodium Chloride (Vancocin) 1 gm in 200 mls @ 133.333 mls/hr IVPB Q12H [facility] Stop: 01/30/17 09:01 Last Admin: 01/26/17 20:48 Dose: 133.333 mls/hr Ceftazidime 2 gm/ Sodium (Chloride) 100 mls @ 100 mls/hr IV Q8H [facility] Last Admin: 01/27/17 03:21 Dose: 100 mls/hr Losartan Potassium (Cozaar) 100 mg PO DAILY [facility] Last Admin: 01/26/17 09:31 Dose: 100 mg Metoprolol Tartrate (Lopressor) 50 mg PO BID [facility] Last Admin: 01/26/17 18:22 Dose: 50 mg Ondansetron HCl (Zofran Inj) 4 mg IVP DAILY@ONCE PRN PRN Reason: Nausea/Vomiting - Labs Labs: 01/27/17 06:03 01/27/17 06:03 - Constitutional Appears: No Acute Distress - Head Exam Head Exam: ATRAUMATIC, NORMAL INSPECTION - Eye Exam Eye Exam: EOMI, Normal appearance - ENT Exam ENT Exam: Mucous Membranes Moist - Respiratory Exam Respiratory Exam: Clear to Ausculation Bilateral - Cardiovascular Exam Cardiovascular Exam: REGULAR RHYTHM - GI/Abdominal Exam GI & Abdominal Exam: Soft. absent: Tenderness - Extremities Exam Additional comments: wound dressing is C/D/I - Neurological Exam Neurological Exam: Alert, Awake, Oriented x3 Assessment and Plan - Assessment and Plan (Free Text) Plan: 1. Right ankle gangrene s/p wound debridement - s/p right ankle wound debridement POD#8 (01/19/17). Pending case management, will discharge to rehab today - Dr. Garcia, Podiatry recommendations: consider future skin graft requiring plastic surgery consult. Will continue to follow up with patient in rehab - Dr. Diamond, Infectious Disease recommendations: Vanco 1 gr IV daily; started on 01/25 Ceftazideim 2 mg IV Q8 started on 01/26 While in rehab, pt will need continue abx for total of 6 weeks with respect to the start dates above; as per recommendations of ID All other abx discontinued by ID - Tylenol 650 mg PO Q6 prn - 01/25 PICC line, single lumen placed - 01/25 RLE MRI: possible osteomyelitis of distal fibula - 01/19 wound culture of right foot: stentorophomonas meltophilia - (ceftazidime sensitive), and coagulase negative staphylococcus - 01/27 vanco peak: 20.3 - 01/26 vanco trough: 8.6 2. PVD - 01/20 CT angio: unremarkable angio of abdomen pelvis. LLE occluded anterior tibial artery beginning approx 2cm from origin. RLE moderate plaque throughout anterior tibial artery believed to be patent. - No intervention per surgery at this time. 3. HTN - Norvasc 10 mg PO daily - Hydralazine 12.5 mg PO BID - Losartan 100mg PO daily - Lopressor 50mg PO BID 4. Prophylaxis - Pepcid 20 mg PO daily - Zofran 4 mg IVP daily prn As per podiatry there is consideration of skin graft surgery with Dr. Middleton in one week. Pt will be discharged to [facility] with continuation of iv abx at this time. case discussed with Dr. Paredes. All management as per Dr. Paredes.
[2017-01-27] MEDS: Vancomycin 1 gm/NS 200 ml 1 GM/200 ML BAG IVPB SCH (09:35)
--- NOTE | 2017-01-27 11:09 | CP.PCM.PN ---
Subjective - Date & Time of Evaluation Date of Evaluation: 01/27/17 Time of Evaluation: 11:06 - Subjective Subjective: 72 year old male was seen at bedside this morning with attending, Dr. Garcia , 8 days s/p wound debridement secondary to right ankle gangrene. Patient NAD. AAOx3. Patient states that his pain is controlled. Denies any n/v/f/c/sob/cp. Objective - Vital Signs/Intake and Output Vital Signs (last 24 hours): Temp Pulse Resp BP Pulse Ox 98.6 F 82 20 151/95 H 99 01/27/17 07:05 01/27/17 07:05 01/27/17 07:05 01/27/17 07:05 01/27/17 07:05 Intake and Output: 01/27/17 01/27/17 06:59 18:59 Intake Total 1050 Balance 1050 - Medications Medications: Current Medications Acetaminophen (Tylenol 325mg Tab) 650 mg PO Q6 PRN PRN Reason: Fever >100.4 F Last Admin: 01/23/17 15:04 Dose: 650 mg Amlodipine Besylate (Norvasc) 10 mg PO DAILY [facility] Last Admin: 01/27/17 09:34 Dose: 10 mg Famotidine (Pepcid) 20 mg PO DAILY [facility] Last Admin: 01/27/17 09:34 Dose: 20 mg Hydralazine HCl (Apresoline) 12.5 mg PO BID [facility] Last Admin: 01/26/17 18:21 Dose: 12.5 mg Vancomycin/Sodium Chloride (Vancocin) 1 gm in 200 mls @ 133.333 mls/hr IVPB Q12H [facility] Stop: 01/30/17 09:01 Last Admin: 01/27/17 09:35 Dose: 133.333 mls/hr Ceftazidime 2 gm/ Sodium (Chloride) 100 mls @ 100 mls/hr IV Q8H [facility] Last Admin: 01/27/17 03:21 Dose: 100 mls/hr Losartan Potassium (Cozaar) 100 mg PO DAILY [facility] Last Admin: 01/27/17 09:34 Dose: 100 mg Metoprolol Tartrate (Lopressor) 50 mg PO BID [facility] Last Admin: 01/27/17 09:34 Dose: 50 mg Ondansetron HCl (Zofran Inj) 4 mg IVP DAILY@ONCE PRN PRN Reason: Nausea/Vomiting - Labs Labs: 01/27/17 06:03 01/27/17 06:03 - Constitutional Appears: Well, Non-toxic, No Acute Distress - Extremities Exam Additional comments: dressing c/d/i - Neurological Exam Neurological Exam: Alert, Awake, Oriented x3 - Psychiatric Exam Psychiatric exam: Normal Affect, Normal Mood Assessment and Plan - Assessment and Plan (Free Text) Assessment: 72 year old male 8 days s/p wound debridement secondary to right ankle gangrene Plan: Patient examined and evaluated with Dr. Gipson Charts, labs and vitals reviewed;afebrile, WBC 7.1 ESR 53 operative cultures-stenotrophomonas maltophilia, coagulase neg staph Patient to remain on IV abx as per ID Podiatry will perform daily dressing changes and will continue to follow patient while in house Planning for skin graft next week for right ankle wound Upon D/C patient to follow up with Dr. Garcia
[2017-01-27] MEDS: hydrALAZINE 12.5 mg Tab PO SCH (12:18)
--- NOTE | 2017-01-27 14:25 | PN ---
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 This morning, we find that the right lateral aspect of his ankle and foot appear to be granulating in nicely. No discomfort. No significant pain. Wound was scrubbed with Betadine scrub brush and flushed with peroxide. His plans for discharge is to subacute facility in [facility] for which I will follow him up and prepare him for split thickness skin graft. Jim Melvin DPM
[2017-01-27 15:59] VITALS: BP 152/105; PULSE 78; TEMP 98.7; O2SAT 98
--- NOTE | 2017-01-31 11:50 | US ---
Date of procedure:01/25/2017 Procedure: Ultrasound guidance for vascular access HISTORY: Infection requiring long-term IV antibiotics TECHNIQUE: Following informed consent and procedure time-out, the patient placed supine on the interventional table and the right arm prepped and draped in the usual sterile fashion. Ultrasound showed a patent and compressible basilic vein. After the skin was anesthetized with lidocaine, the basilic vein was accessed with micro micropuncture technique using ultrasound guidance. An image documenting ultrasound guidance for vascular access was permanently saved. IMPRESSION: Ultrasound guidance for vascular access for placement of PICC.
--- NOTE | 2017-02-01 08:48 | RAD ---
PROCEDURE: Date of procedure: 01/25/2017 Procedure: 1. Placement of a right arm PICC with ultrasound and fluoroscopic guidance, CPT 73402 2. PICC tip confirmation with spot radiograph and is in the superior vena cava Medications: 1 percent lidocaine Total Fluoro time: 3.4conds Radiation: 1.12 mGy EBL: 2 cc HISTORY: Poor venous access TECHNIQUE: Following informed consent and procedure time-out, the patient was placed supine on the interventional table and the right arm prepped and draped in the usual sterile fashion. Ultrasound showed a patent and compressible right basilic vein. After the skin was anesthetized with lidocaine, the basilic vein was accessed with micro micropuncture technique using ultrasound guidance. A guidewire was then advanced under fluoroscopic guidance into the superior vena cava. An image documenting ultrasound guidance for vascular access was permanently saved. The length of the single-lumen 4 [place] PICC was trimmed to 37 centimeters and advanced through a peel-away sheath. The PICC was position with tip of PICC confirm a spot radiograph the superior vena cava. The PICC was secured to the patient's skin. The PICC was flushed. A biopatch and sterile dressing was applied. IMPRESSION: Placement of a single-lumen 4 [place] PICC trimmed to 37 centimeters via right basilic vein. The tip of the PICC is confirmed with spot radiograph and is in the superior vena cava.
== END 2017-01-27 18:05 | DRG 264 ==
LOC: C.SDS 09:12 → OBSVTOIN 11:22 → INTOOBSV 11:22 → C.9S 11:22 → C.6T 20:53 → OBSVTOIN 01-21 12:02
PROVIDERS: ADMIT Internal Medicine Pulmonary Disease; ATTEND Internal Medicine Pulmonary Disease
PROC: 0HBMXZZ Excision of Right Foot Skin, External Approach (ICD-10-PCS; principal; 2017-01-19 10:00)
DX: I96 Gangrene, not elsewhere classified (principal); L03.115 Cellulitis of right lower limb; L97.319 Non-pressure chronic ulcer of right ankle with unspecified severity; I12.9 Hypertensive chronic kidney disease with stage 1 through stage 4 chronic kidney disease, or unspecified chronic kidney disease; N18.9 Chronic kidney disease, unspecified; Z87.891 Personal history of nicotine dependence

== ENCOUNTER 2017-02-03 06:42 | Day surgery (SDC) | payer MEDICARE ==
[2017-01-04 17:30] VITALS: BMI 31.4
[2017-02-03] MEDS ORDERED: Bacitracin 50,000 UNIT in Sodium Chloride 0.9% Irrig 1,000 ML IR SCH (07:21)
[2017-02-03] MEDS ORDERED: ceFAZolin IV 1 gm in Dextrose 0 GM/0 ML BAG IVPB ONE (07:38)
[2017-02-03] MEDS ORDERED: Mineral Oil Light Sterile 25 ml ONE (07:39)
[2017-02-03] MEDS ORDERED: Propofol 10 mg/ml Inj (20 ML) ONE (07:49)
[2017-02-03] MEDS ORDERED: Midazolam 2 MG/2 ML VIAL ONE (07:51)
[2017-02-03] MEDS ORDERED: Lactated Ringer's 1,000 ML IV ONE ×2 (07:55→10:30)
[2017-02-03] MEDS ORDERED: Oxycodone/Acetaminophen 5/325 mg Tab PO PRN ×2 (10:31)
[2017-02-03] MEDS: HYDROmorphone 0.5 mg/0.5 ml ISec IVP PRN ×4 (10:38→11:50)
[2017-02-03 11:35] VITALS: TEMP 98.2; O2SAT 100
[2017-02-03 13:18] VITALS: RESP 12
[2017-02-03 13:26] VITALS: BP 125/86; PULSE 63
--- NOTE | 2017-02-03 13:35 | PCM.SURG1 ---
Surgeon's Initial Post Op Note - Surgeon's Notes Surgeon: Dr. Garcia DMP Ballast Inspector: Dr. Kevin ORTA, Dr. Oro DPM PGY-2 Type of Anesthesia: General Endo Anesthesia Administered By: Dr. Vazquez Pre-Operative Diagnosis: chronic right ankle ulcer Operative Findings: see dictation Post-Operative Diagnosis: same Operation Performed: harvesting of split thickness skin graft from the thigh and application to the right ankle tendoachilles defect Specimen/Specimens Removed: none Estimated Blood Loss: EBL {In ML}: 5 Blood Products Given: N/A Drains Used: No Drains Post-Op Condition: Good Date of Surgery/Procedure: 02/03/17 Time of Surgery/Procedure: 10:00
--- NOTE | 2017-02-03 23:32 | OP ---
PROCEDURE DATE: 02/03/2017 SURGEON: Procedure 1: Dr. Brown. CREW BOSS: Dr. Turner and Dr. Melisa Oro, PGY-2. SURGEON: Procedure 2: Dr. Turner. CREW BOSS: Dr. Melisa Oro, PGY-2. ANESTHESIOLOGIST: Dr. Kemp. ANESTHESIA TYPE: General. PREOPERATIVE DIAGNOSIS: Right ankle chronic ulcer. POSTOPERATIVE DIAGNOSIS: Right ankle chronic ulcer. PROCEDURE: 1. Harvesting of the spilt-thickness skin graft from the thigh. 2. Application of the spilt-thickness skin graft to the ankle tendo Achilles defect. INDICATIONS: The patient is a 72-year-old male with the above diagnosis. The patient has exhausted all conservative treatment at this time and now requires surgical intervention. The patient signed the consent after careful explanation of risks, benefits, complications and alternatives for the surgical procedure. No guarantees were given or implied. PREPARATION: The patient was brought into the operating room and placed on the operating room table in a supine position. A time-out was performed for identification of the correct patient and procedure. Once general anesthesia was achieved, the right lower extremity was then prepped and draped in a normal sterile manner and the procedure began. PROCEDURE #1: Harvesting of the split-thickness skin graft from the thigh. Attention was directed to the anterior aspect of the right thigh, mineral oil was applied to the area. Next utilizing a 2-inch dermatome, the split-thickness skin graft was harvested and it measured approximately 2 inches x 5 inches. The skin graft was then taken to the back table and was meshed to 1.5. The donor site was then cleansed with normal sterile saline, dressed with Xeroform, ABD and tape. PROCEDURE #2: Application of the split-thickness skin graft to the ankle tendo Achilles defect. Attention was directed to the ankle where the chronic ulcer is located which measures approximately 5 cm x 11 cm. Utilizing a curette and #15 blade, necrotic edges were sharply debrided until healthy granular tissue appeared. Next utilizing a pulse lavage with Bacitracin, the area was irrigated copiously. Next the skin graft was applied to the defect and sutured with #3-0 nylon and #4-0 Chromic. The area was then dressed with sterile cotton balls followed by normal sterile saline soaked gauze, then dressed with ABD pad and lastly Kerlix. Then a posterior split was applied to the right lower extremity. POSTOPERATIVE CONDITION: The patient tolerated the anesthesia and procedure well and was escorted to recovery room with vital signs stable and neurovascular status intact. The patient will be nonweightbearing to the right lower extremity and will follow up with Dr. Turner. Melisa Oro DPM MTDD
== END 2017-02-03 14:30 | disposition home or self-care (01) ==
LOC: C.SDS 06:42 → EDSTATUS 07:45 → C.SDS 14:30
PROVIDERS: ATTEND Podiatrist Foot Surgery
DX: I96 Gangrene, not elsewhere classified (principal); L98.499 Non-pressure chronic ulcer of skin of other sites with unspecified severity; E11.622 Type 2 diabetes mellitus with other skin ulcer
CPT/HCPCS: 15100; C1762; J1170; J2250; J2704; J3010; J7120